=== PATIENT | female | born 1950 | race Two or more races ===

== ENCOUNTER 2016-05-26 21:00 | Inpatient (IN) | payer OTHER ==
[~2016-05-26] VITALS: Ht 172.7 cm; Wt 48.6 kg
[2016-05-26] MEDS ORDERED: IV NS 0.9% 500 ML IV ONE (21:19)
[2016-05-26] MEDS ORDERED: IV SET PRIMARY PUMP SET 1 EA INFUS.SET MC ONE (21:19)
[2016-05-26] MEDS ORDERED: ONDANSETRON HCL/PF 4 MG/2 ML VIAL ONE (21:19)
[2016-05-26] MEDS ORDERED: IV NS 0.9% 1,000 ML ONE (21:19)
[2016-05-26] MEDS ORDERED: PANTOPRAZOLE 40 MG VIAL ONE (21:19)
[2016-05-26] MEDS ORDERED: IV SET PRIMARY 1 EA INFUS.SET MC ONE (21:19)
[2016-05-26] MEDS ORDERED: ONDANSETRON HCL/PF 4 MG/2 ML VIAL IVP ONE (21:30)
[2016-05-26] MEDS ORDERED: PANTOPRAZOLE 80 MG in IV NS 0.9% 500 ML IV ONE (21:30)
[2016-05-26] MEDS ORDERED: IV NS 0.9% 1,000 ML BAG IV ONE (21:30)
[2016-05-26] MEDS ORDERED: PANTOPRAZOLE 80 MG in IV NS 0.9% 500 ML IV PRN (21:30)
[2016-05-26 21:39] LABS: BASOPHILS % (AUTO) 0.1 % (0.0-2.0); DIFF TOTAL % 100 %; EOSINOPHILS % (AUTO) 0.1 % (0.0-6.0); HEMATOCRIT 24 % (33-45); HEMOGLOBIN 7.5 g/dL (11.5-14.8); LYMPHOCYTES # (AUTO) 0.3 /CMM (0.8-4.8); MEAN CORPUSCULAR HEMOGLOBIN 20 PG (26.0-33.0); MEAN CORPUSCULAR HGB CONC 31 g/dl (31.0-36.0); MEAN CORPUSCULAR VOLUME 66 fL (82-100); MONOCYTES % (AUTO) 0.3 % (2.0-12.0); NEUTROPHILS # (AUTO) 9.8 /CMM (1.8-8.9); NEUTROPHILS % (AUTO) 96.5 % (43.0-81.0); PLATELET COUNT (AUTO) 654 /CMM (150-450); RED BLOOD CELL COUNT(AUTO) 3.67 MIL/uL (4.0-5.2); WHITE BLOOD COUNT (AUTO) 10.1 K/uL (4.3-11.0)
[2016-05-26 21:47] LABS: CALCIUM, SERUM 8.7 mg/dL (8.5-10.1); CREATININE 0.7 mg/dL (0.6-1.3); POTASSIUM 4.7 mmol/L (3.5-5.1)
[2016-05-26 21:50] LABS: INR 1.22 (0.87-1.13); PROTHROMBIN TIME 12.8 SECS (9.5-12.7)
[2016-05-26 21:53] LABS: ALBUMIN 2.8 g/dL (3.4-5.0); BILIRUBIN,DIRECT 0.1 mg/dL (0.0-0.2); BILIRUBIN,TOTAL 0.5 mg/dL (0.2-1.0); INDIRECT BILIRUBIN 0.4 mg/dL (0.0-1.1); TOTAL PROTEIN, SERUM 8.6 g/dL (6.4-8.2)
[2016-05-26] MEDS ORDERED: IV NS 0.9% 250 ML IV ONE (23:04)
[2016-05-26] MEDS ORDERED: BLOOD IV SET 1 EA INFUS.SET MC ONE (23:04)
[2016-05-26 23:43] VITALS: BP 148/86
[2016-05-27] VITALS (14 sets, daily range): BP systolic 134–157; BP diastolic 68–88
[2016-05-27] MEDS ORDERED: ACETAMINOPHEN 650 MG/20.3 ML UDC PO PRN
[2016-05-27] MEDS ORDERED: IV D5/ 0.9% NACL 1,000 ML IV ONE (00:03)
[2016-05-27] MEDS ORDERED: IV SET PRIMARY PUMP SET 1 EA INFUS.SET MC ONE (00:26)
[2016-05-27] MEDS: IV D5/ 0.9% NACL 1,000 ML IV PRN ×2 (00:26→20:31)
[2016-05-27] MEDS ORDERED: ONDANSETRON HCL/PF 4 MG/2 ML VIAL IV PRN ×2 (00:30)
[2016-05-27 07:27] LABS: HEMATOCRIT 27 % (33-45); HEMOGLOBIN 8.6 g/dL (11.5-14.8); MEAN CORPUSCULAR HEMOGLOBIN 23 PG (26.0-33.0); MEAN CORPUSCULAR HGB CONC 32 g/dl (31.0-36.0); MEAN CORPUSCULAR VOLUME 71 fL (82-100); PLATELET COUNT (AUTO) 590 /CMM (150-450); RED BLOOD CELL COUNT(AUTO) 3.79 MIL/uL (4.0-5.2); WHITE BLOOD COUNT (AUTO) 7.7 K/uL (4.3-11.0)
[2016-05-27] MEDS ORDERED: NAPR220C15 PO (08:11)
[2016-05-27] MEDS: PANTOPRAZOLE 40 MG VIAL IV SCH ×2 (09:00→17:31)
[2016-05-27] MEDS ORDERED: SUCCINYLCHOLINE CHLORIDE 20 MG/ML VIAL ONE (09:17)
[2016-05-27 09:53] LABS: ANION GAP 14 (5-14); CALCIUM, SERUM 8.4 mg/dL (8.5-10.1); CARBON DIOXIDE 24 mmol/L (21-32); CHLORIDE 110 mmol/L (98-107); CREATININE 0.5 mg/dL (0.6-1.3); GFR 123 mL/min (>60); GLUCOSE 99 mg/dL (74-106); POTASSIUM 4.2 mmol/L (3.5-5.1); SODIUM SERUM 144 mmol/L (136-145); UREA NITROGEN, BLOOD 29 mg/dL (7-18)
[2016-05-27 09:54] LABS: ALANINE AMINOTRANSFERASE 10 U/L (12-78); ALBUMIN 2.3 g/dL (3.4-5.0); ASPARTATE AMINOTRANSFERASE 16 U/L (15-37); PHOSPHORUS 3.2 mg/dL (2.5-4.9)
[2016-05-27 10:43] LABS: IRON, SERUM 83 ug/dl (50-175); PERCENT SATURATION 30 % (14-33); TOTAL IRON BINDING CAPACITY 281 ug/dl (250-450)
[2016-05-27 10:45] LABS: BILIRUBIN,TOTAL 0.6 mg/dL (0.2-1.0); TOTAL PROTEIN, SERUM 7.4 g/dL (6.4-8.2)
[2016-05-27 10:47] LABS: TROPONIN I < 0.017 ng/mL (0.00-0.056)
[2016-05-27 11:03] LABS: ANISOCYTOSIS 3+; HYPOCHROMASIA 2+; LYMPHOCYTES % (MANUAL) 11 % (16-48); PLATELET ESTIMATE INCREASED
[2016-05-27 11:16] LABS: CHOLESTEROL 101 mg/dL (<200); HDL CHOLESTEROL 39 mg/dL (40-60); LDL 57 mg/dL (0-99); THYROID STIMULATING HORMONE 0.803 uIU/mL (0.358-3.74); TRIGLYCERIDES 71 mg/dL (30-150)
[2016-05-27] MEDS: SUCRALFATE 1 G/10 ML UDC PO SCH ×3 (12:44→21:45)
[2016-05-28 04:00] VITALS: BP 137/71
[2016-05-28 08:00] VITALS: BP_SYST 139; BP_SYST 191; BP_DIAS 58; BP_DIAS 73
[2016-05-28] MEDS: SUCRALFATE 1 G/10 ML UDC PO SCH ×4 (09:00→22:36)
[2016-05-28] MEDS: IV D5/ 0.9% NACL 1,000 ML IV PRN ×2 (09:48→22:38)
[2016-05-28] MEDS: PANTOPRAZOLE 40 MG VIAL IV SCH ×2 (09:48→17:36)
[2016-05-28 10:50] LABS: DIFF TOTAL % 100 %; EOSINOPHILS # (AUTO) 0.2 /CMM (0.0-0.7); HEMATOCRIT 24 % (33-45); HEMOGLOBIN 7.7 g/dL (11.5-14.8); LYMPHOCYTES # (AUTO) 0.9 /CMM (0.8-4.8); LYMPHOCYTES % (AUTO) 14.7 % (20.0-44.0); MEAN CORPUSCULAR HEMOGLOBIN 22 PG (26.0-33.0); MEAN CORPUSCULAR HGB CONC 31 g/dl (31.0-36.0); MEAN CORPUSCULAR VOLUME 71 fL (82-100); MONOCYTES # (AUTO) 0.3 /CMM (0.1-1.30); MONOCYTES % (AUTO) 4.8 % (2.0-12.0); NEUTROPHILS % (AUTO) 77.5 % (43.0-81.0); PLATELET COUNT (AUTO) 519 /CMM (150-450); RED BLOOD CELL COUNT(AUTO) 3.42 MIL/uL (4.0-5.2); WHITE BLOOD COUNT (AUTO) 6.4 K/uL (4.3-11.0)
[2016-05-28 11:52] LABS: BAND % (MANUAL) 1 % (0.0-5.0); EOSINOPHILS % (MANUAL) 4 % (0-4); HYPOCHROMASIA 2+; LYMPHOCYTES % (MANUAL) 17 % (16-48); PLATELET ESTIMATE INCREASED
[2016-05-28 11:53] LABS: ANISOCYTOSIS 2+; MICROCYTOSIS 2+; SPHEROCYTES 1+
[2016-05-28 13:02] VITALS: BP 139/73
[2016-05-28 20:00] VITALS: BP_SYST 153; BP_SYST 169; BP_DIAS 68; BP_DIAS 71
[2016-05-28 22:00] VITALS: BP 142/73
[2016-05-29 04:00] VITALS: BP 156/79
[2016-05-29 06:00] VITALS: BP 146/73
[2016-05-29 08:00] VITALS: BP 157/83
[2016-05-29] MEDS: SUCRALFATE 1 G/10 ML UDC PO SCH ×2 (09:11→13:35)
[2016-05-29] MEDS: PANTOPRAZOLE 40 MG VIAL IV SCH (09:11)
[2016-05-29] MEDS ORDERED: PANT40TA2 PO (10:28)
[2016-05-29] MEDS ORDERED: SUCR1TAB26 PO (10:29)
[2016-05-29 21:49] LABS: HIV-1 p24 ANTIGEN NON REACTIVE (NONREACTIVE); HIV-1/2 ANTIBODY NON REACTIVE (NONREACTIVE)
[2016-05-30 11:17] LABS: HEPATITIS C VIRUS AB <0.1 s/co ratio (0.0-0.9)
== END 2016-05-29 16:23 | disposition home or self-care (01) | DRG 368 ==
LOC: ER 21:02 → TELE1 22:15 → MEDSG1 05-27 10:24
PROVIDERS: ADMIT Nurse Practitioner Acute Care; ATTEND Nurse Practitioner Acute Care
PROC: 30233N1 Transfusion of Nonautologous Red Blood Cells into Peripheral Vein, Percutaneous Approach (ICD-10-PCS; principal; 2016-05-26)
PROC: 0W3P8ZZ Control Bleeding in Gastrointestinal Tract, Via Natural or Artificial Opening Endoscopic (ICD-10-PCS; 2016-05-27)
PROC: 0DC58ZZ Extirpation of Matter from Esophagus, Via Natural or Artificial Opening Endoscopic (ICD-10-PCS; 2016-05-27)
DX: K22.6 Gastro-esophageal laceration-hemorrhage syndrome (principal); E43 Unspecified severe protein-calorie malnutrition; N17.0 Acute kidney failure with tubular necrosis; D62 Acute posthemorrhagic anemia; Z68.1 Body mass index [BMI] 19.9 or less, adult; D47.3 Essential (hemorrhagic) thrombocythemia; M06.9 Rheumatoid arthritis, unspecified; Z90.2 Acquired absence of lung [part of]; M62.50 Muscle wasting and atrophy, not elsewhere classified, unspecified site; E88.09 Other disorders of plasma-protein metabolism, not elsewhere classified; E86.0 Dehydration; T39.395A Adverse effect of other nonsteroidal anti-inflammatory drugs [NSAID], initial encounter; D50.0 Iron deficiency anemia secondary to blood loss (chronic)
CPT/HCPCS: 36415; 71010-TC; 80048-TC; 80053-TC; 80061-TC; 80076-TC; 82728-TC; 83540-TC; 83690-TC; 83735-TC; 84100-TC; 84443-TC; 84484-TC; 85025-TC; 85730-TC; 86706; 86803; 86850-TC; 86921-TC; 87081-TC; A4606; C9113; J0330; J2405; J7030; J7040; J7042; J7050; P9016-BL; Z7610

== ENCOUNTER 2019-03-29 07:39 | Inpatient (IN) | payer MEDICARE, MEDICAID ==
[~2019-03-29] VITALS: Ht 162.6 cm; Wt 46.3 kg
[~2019-03-29 07:39] MED LIST: PANT40TA2 PO; SUCR1TAB31 PO
[2019-03-29] MEDS ORDERED: IV NS 0.9% 1,000 ML BAG IV ONE ×2 (08:00→09:00)
[2019-03-29] MEDS ORDERED: ASPIRIN 300 MG/SUPP.RECT RC ONE ×2 (08:00→08:36)
--- NOTE | 2019-03-29 08:14 | NUR ---
Pt came in BIB EMS from facility, c/c fever. Pt on trach on 10L/min at 98% non verbal, noted bilateral extremities contracted, lower extremities no movement, repositioned pt, rectal temp is 101.6, lesion to upper back, lesion to coccyx noted dressing. placed on monitor EKG. awaiting orders.
[2019-03-29 08:15] LABS: BASOPHILS # (AUTO) 0.1 /CMM (0.0-0.2); MEAN CORPUSCULAR VOLUME 94 fL (82-100); MONOCYTES # (AUTO) 0.6 /CMM (0.1-1.30)
[2019-03-29 08:18] LABS: BASOPHILS % (AUTO) 0.3 % (0.0-2.0); HEMATOCRIT 32 % (33-45); HEMOGLOBIN 10.2 g/dL (11.5-14.8); LYMPHOCYTES # (AUTO) 0.3 /CMM (0.8-4.8); LYMPHOCYTES % (AUTO) 1.6 % (20.0-44.0); MEAN CORPUSCULAR HGB CONC 32 g/dl (31.0-36.0); MONOCYTES % (AUTO) 3.2 % (2.0-12.0); NEUTROPHILS # (AUTO) 17.3 /CMM (1.8-8.9); NEUTROPHILS % (AUTO) 94.9 % (43.0-81.0); PLATELET COUNT (AUTO) 334 /CMM (150-450); RED BLOOD CELL COUNT(AUTO) 3.38 MIL/uL (4.0-5.2); WHITE BLOOD COUNT (AUTO) 18.3 K/uL (4.3-11.0)
[2019-03-29 08:27] LABS: CALCIUM, SERUM 8.9 mg/dL (8.5-10.1); CARBON DIOXIDE 33 mmol/L (21-32); CHLORIDE 101 mmol/L (98-107); GLUCOSE 127 mg/dL (74-106); POTASSIUM 4.6 mmol/L (3.5-5.1); SODIUM SERUM 135 mmol/L (136-145); UREA NITROGEN, BLOOD 21 mg/dL (7-18)
[2019-03-29 08:28] LABS: CREATININE 0.4 mg/dL (0.6-1.3)
[2019-03-29 08:31] LABS: BILIRUBIN,TOTAL 0.2 mg/dL (0.2-1.0)
[2019-03-29 08:32] LABS: ALANINE AMINOTRANSFERASE 41 U/L (12-78); ALBUMIN 1.8 g/dL (3.4-5.0); ALKALINE PHOSPHATASE 169 U/L (46-116); ASPARTATE AMINOTRANSFERASE 29 U/L (15-37); TOTAL PROTEIN, SERUM 7.8 g/dL (6.4-8.2)
--- NOTE | 2019-03-29 08:49 | NUR ---
noted pt came with gtube in place.
--- NOTE | 2019-03-29 08:50 | NUR ---
ENDER CALLED ITS JEM
[2019-03-29] MEDS ORDERED: PIPERACILLIN /TAZOBACTAM 3.375 G VIAL IV ONE (08:51)
[2019-03-29] MEDS ORDERED: LEVOFLOXACIN 750 MG /D5W 150ML 150 ML IV ONE ×2 (08:52→09:00)
--- NOTE | 2019-03-29 08:55 | NUR ---
[facility] BED 115-1
--- NOTE | 2019-03-29 08:56 | NUR ---
Blood culture obtained x 2
[2019-03-29] MEDS ORDERED: PIPERACILLIN /TAZOBACTAM 3.375 G in IV D5W 50 ML IV ONE (09:00)
--- NOTE | 2019-03-29 09:24 | NUR ---
Pt eyes open noted bilateral pupil 3mm equal and brisk, noted pt able to nod, suctioned as needed, side rails up x2, continuing to monitor.
--- NOTE | 2019-03-29 09:52 | NUR ---
REPORT GIVEN GARRY NG FOR ELOY, DEB NG INFORMED
--- NOTE | 2019-03-29 10:03 | NUR ---
Place new grant cath 18 F secured ,noted yellow urine
--- NOTE | 2019-03-29 10:30 | NUR ---
MANAGER MACHINE OPENING NOTES PATIENT RECIVED FROM ER ON GURNEY. PATIENT IS A/O X3 PATIENT IS NON BERBAL. WHEN ORIENTED SHE IS AWARE OF THINGS THAT ARE GOING ON. SHE HAS TROUBLE SEE AND HARD OF HEARING ON BOTH EARS . PATIENT IS SATURATING AT 94 %. PATIENT HAS CRACKLING ON LEFT MIDDLE AND LOWER LOBE. PATIENT HAS G TUBE. IV LINE RFA 20 # / LFOOT 24 # . PATIENT IS LITTER. SACRAL/ BACK/ JALLOH/ BI FOOT WOUNDS. CHANGED DRESSING AND KEPT DRY AND CLEAN . PATIENT REPOSITION PER HOSPITAL PROTOCOL BED LOCK AND LOWEST POSITION. CALL LIGHT WITH IN REACH.
[2019-03-29] MEDS ORDERED: ASPIRIN 300 MG/SUPP.RECT RC PRN (11:00)
[2019-03-29] MEDS ORDERED: INSULIN REGULAR, HUMAN 100 UNIT/ML 3 ML VIAL SQ PRN (11:00)
[2019-03-29] MEDS ORDERED: MAG HYDROX/AL HYDROX/SIMETH 30 ML UDC PO PRN (11:00)
[2019-03-29] MEDS ORDERED: ONDANSETRON HCL/PF 4 MG/2 ML VIAL IVP PRN (11:00)
[2019-03-29] MEDS ORDERED: Z GUARD REMEDY 2 OZ OINT TP PRN (11:00)
[2019-03-29] MEDS ORDERED: MAGNESIUM HYDROXIDE 30 ML UDC PO PRN (11:00)
[2019-03-29] MEDS ORDERED: DEXTROSE 50%-WATER 50 ML DISP.SYRIN IV PRN (11:00)
[2019-03-29] MEDS ORDERED: ZOLPIDEM TARTRATE 5 MG TABLET PO PRN (11:00)
[2019-03-29 12:00] VITALS: BP 100/57
[2019-03-29 12:24] LABS: APPEARANCE,URINE CLOUDY (CLEAR); COLOR,URINE DARK YELLOW (YELLOW)
[2019-03-29 12:25] LABS: BILIRUBIN,URINE NEGATIVE (NEGATIVE); BLOOD, URINE 3+ Ery/uL (NEGATIVE); KETONES,URINE NEGATIVE (NEGATIVE); PH,URINE >9.0 (5.0-8.0); PROTEIN,URINE 1+ mg/dl (NEGATIVE); UGLUCOSE NEGATIVE (NEGATIVE); UROBILINOGEN,URINE 0.2 EU/dL (0.2)
[2019-03-29] MEDS: ALBUTEROL FS 2.5 MG/0.5 ML VIAL.NEB NEB SCH ×3 (12:25→19:57)
[2019-03-29] MEDS: IPRATROPIUM NEB FS 0.5 MG/2.5 ML AMPUL.NEB NEB SCH ×3 (12:25→19:57)
[2019-03-29 12:26] LABS: LEUKOCYTE ESTERASE ,URINE 3+ (NEGATIVE); NITRITE, URINE POSITIVE (NEGATIVE)
[2019-03-29 12:29] LABS: BACTERIA,URINE Many /HPF (None Seen); RBC,URINE 21-50 /HPF (0-2); SQUAMOUS EPITHELIAL CELL,UR Few /HPF (None Seen)
[2019-03-29 12:33] LABS: TRIPLE PHOSPHATE CRYSTAL,UR Moderate /HPF (None Seen)
[2019-03-29] MEDS: BLOOD SUGAR DIAGNOSTIC 1 EACH STRIP IN SCH ×3 (13:01→22:01)
[2019-03-29] MEDS: ENOXAPARIN SODIUM 40 MG/0.4 ML DISP.SYRIN SQ SCH (13:04)
[2019-03-29] MEDS: IV 1/2NS 1000 ML 1,000 ML IV PRN (13:52)
[2019-03-29] MEDS ORDERED: FEE PK DOSING 1 MIN EA MC ONE (14:16)
[2019-03-29 16:00] VITALS: BP 137/69
[2019-03-29] MEDS: PIPERACILLIN /TAZOBACTAM 4.5 G in IV D5W 50 ML IV SCH ×2 (16:54→20:58)
[2019-03-29] MEDS: VANCOMYCIN 0.75 GM in IV D5W 250 ML IV SCH (16:54)
[2019-03-29] MEDS ORDERED: OSMOLITE 1.2 CAL 1,000 ML LIQUID GT PRN (18:00)
--- NOTE | 2019-03-29 19:00 | NUR ---
DISTRICT SUPERINTENDENT NOTES WILL ENSORDSED TO PM SHIFT. PATIENT IS ALERT AND ORIENTED X4 . SHE IS NON VERBAL AND NODING IN RESPONSE TO. PATIENT SHOWS NO SIGNS OF RESPIRATORY DISTRESS . NO SOB . NO PAIN. BED LOCKED AND LOWEST POSITION , SAFETY MAINTAINED. CALL LIGHT WITH IN REACH.
--- NOTE | 2019-03-29 19:32 | NUR ---
DIRECTOR OF CONSTRUCTION OPENING NOTES RECEIVED PATIENT IN BED, AWAKE, ALERT AND ORIENTED X 2-3. ABLE TO NOD AND SHAKE HEAD. ON T- PIECE 8L COOL AEROSOL, SATURATING 98% AT THE MOMENT. MODERATE THICK KU SECRETIONS NOTED. LUNG SOUNDS CRACKLING ON LEFT MIDDLE AND LOWER LOBE. GTUBE FLUSHING AND PATENT, WILL INITIATE GTUBE FEEDING. IV SITES RFA 20G, LFA 20G, AND LFOOT 24G, ALL SITES FLUSHING AND PATENT, IVF RUNNING ORDERED. NO INFILTRATION NOTED. BERGER CATH NOTED OFF THE FLOOR, INTACT, AND DRAINING WELL. SAFETY MEASURES IN PLACE; CL WITHIN REACH, HOB ELEVATED 45 DEG., SR UP X2, BED LOCKED AND IN LOW POSITION. WILL CONT TO MONITOR PT CLOSELY.
[2019-03-29 20:00] VITALS: BP 127/66
[2019-03-30] VITALS (7 sets, daily range): BP systolic 104–137; BP diastolic 54–73
[2019-03-30] MEDS: IPRATROPIUM NEB FS 0.5 MG/2.5 ML AMPUL.NEB NEB SCH ×7 (00:03→22:44)
--- NOTE | 2019-03-30 00:30 | NUR ---
REPORT GIVEN TO HERNANDEZ JOHN FOR ELOY.
--- NOTE | 2019-03-30 00:40 | NUR ---
TELE/RN notes Received Patient from Agata at this time, In no acute distress breathing even and unlabored, on T-piece with cool aerosol, O2 8LPM, saturation 98%. Patient A/O X2-3, respond by nodding, Sinus Tachy on monitor, G-tube in place, patent, connected to feeding as ordered, HOB elevated to 45 degree. Safety maintained, bed at the lowest locked position, Call light within reach, WIll continue to monitor as per plan of care.
[2019-03-30] MEDS: MORPHINE SULFATE INJ 2 MG/ML DISP.SYRIN IV PRN (01:04)
[2019-03-30] MEDS: PIPERACILLIN /TAZOBACTAM 4.5 G in IV D5W 50 ML IV SCH ×4 (04:38→21:43)
--- NOTE | 2019-03-30 07:00 | NUR ---
RN NOTE PATIENT NONVERBAL, CATH DRAIINING WITH SEDIENTS NOTED. MULTIPLE IV ATB FOR PATIENT. IV PATENT AND INTACT. R IV REMOVED. NO BM NO RESIDUAL WITH GTUBE SUGARS WNL
[2019-03-30 07:08] LABS: BASOPHILS % (AUTO) 0.1 % (0.0-2.0); EOSINOPHILS % (AUTO) 0.4 % (0.0-6.0); HEMATOCRIT 27 % (33-45); HEMOGLOBIN 8.9 g/dL (11.5-14.8); LYMPHOCYTES # (AUTO) 0.4 /CMM (0.8-4.8); LYMPHOCYTES % (AUTO) 4.9 % (20.0-44.0); MEAN CORPUSCULAR HGB CONC 33 g/dl (31.0-36.0); MEAN CORPUSCULAR VOLUME 94 fL (82-100); MONOCYTES # (AUTO) 0.5 /CMM (0.1-1.30); NEUTROPHILS # (AUTO) 6.9 /CMM (1.8-8.9); NEUTROPHILS % (AUTO) 87.6 % (43.0-81.0); PLATELET COUNT (AUTO) 306 /CMM (150-450); RED BLOOD CELL COUNT(AUTO) 2.87 MIL/uL (4.0-5.2); WHITE BLOOD COUNT (AUTO) 7.8 K/uL (4.3-11.0)
--- NOTE | 2019-03-30 07:14 | NUR ---
TELE/RN notes patient remained in bed, resting comfortably at this time, In no acute distress, breathing even and unlabored, on T-piece with cool aerosol, O2 8LPM, saturation 98%. A/O to her base line, denies any pain or discomfort at this time, Sinus Tachy on monitor, G-tube in place, patent, connected to feeding as ordered, no residual at this time, HOB elevated to 45 degree. Safety maintained, bed at the lowest locked position, Call light within reach, Will endorse to AM shift nurse for ELOY.
[2019-03-30] MEDS: PANTOPRAZOLE 40 MG TABLET.DR PO SCH (07:24)
[2019-03-30] MEDS: BLOOD SUGAR DIAGNOSTIC 1 EACH STRIP IN SCH ×4 (07:31→21:48)
[2019-03-30 07:39] LABS: THYROID STIMULATING HORMONE 1.765 uIU/mL (0.358-3.74)
[2019-03-30 07:42] LABS: ALBUMIN 1.5 g/dL (3.4-5.0); BILIRUBIN,TOTAL 0.2 mg/dL (0.2-1.0); CALCIUM, SERUM 8.6 mg/dL (8.5-10.1); CREATININE 0.4 mg/dL (0.6-1.3); MAGNESIUM 1.8 mg/dL (1.8-2.4); PHOSPHORUS 3.3 mg/dL (2.5-4.9); POTASSIUM 3.7 mmol/L (3.5-5.1); TOTAL PROTEIN, SERUM 7.2 g/dL (6.4-8.2)
[2019-03-30] MEDS: ALBUTEROL FS 2.5 MG/0.5 ML VIAL.NEB NEB SCH ×4 (07:47→19:37)
[2019-03-30] MEDS: VANCOMYCIN 0.75 GM in IV D5W 250 ML IV SCH (08:48)
[2019-03-30] MEDS ORDERED: OSMOLITE 1.2 CAL 1,000 ML LIQUID GT PRN (11:00)
[2019-03-30] MEDS: ENOXAPARIN SODIUM 40 MG/0.4 ML DISP.SYRIN SQ SCH (14:03)
[2019-03-30] MEDS: HYDROGEL DRESSING 90 GM TUBE TP SCH (14:30)
[2019-03-30] MEDS: ALBUMIN 25% 25 GM in PREMIX 1 EA IV SCH ×2 (17:07→23:31)
[2019-03-30] MEDS: IV 1/2NS 1000 ML 1,000 ML IV PRN (18:28)
--- NOTE | 2019-03-30 19:05 | NUR ---
RN CLOSING NOTES LAB CALLED AND INFORMED RN + BLOOD CULTURE DAY RN TO ENDRORSE TO TAXICAB DISPATCHER. PATIENT CURRENTLY ON MU;TIPLE ATB. INFECTIOUS DISEASE SAW PATENT NEW ODERS CARRIED OUT. ALBUMIN HUNG BY DAYSHIFT PER MD ORDER. PATIENT NONVERBAL, CATH DRAIINING WITH SEDIENTS NOTED. MULTIPLE IV ATB FOR PATIENT. IV PATENT AND INTACT. RIGHT IV REMOVED. NO BM NO RESIDUAL WITH GTUBE SUGARS WNL WOUND DR SAW PATIENT CHANGED DRESSINGS W RNS.
--- NOTE | 2019-03-30 20:03 | NUR ---
RN NOTE RECEIVED PT IN BED WITH HEAD OF BED ELEVATED. PT NON VERBAL. NO SIGNS OF DISCOMFORT OR DISTRESS. PT WITH TRACH MID LINE AND IN PLACE. ON COOL AEROSOL. GT PATENT AND IN PLACE. NO RESIDUAL NOTED. WITH BERGER CATHETER IN PLACE WITH YELLOW URINE WITH SEDIMENTS NOTED. IVF RUNNING. CALL LIGHT WITHIN REACH. BED IN LOW POSITION. WILL MONITOR.
[2019-03-31] VITALS: BP 137/71
[2019-03-31] MEDS: IPRATROPIUM NEB FS 0.5 MG/2.5 ML AMPUL.NEB NEB SCH ×6 (03:07→23:51)
[2019-03-31] MEDS: VANCOMYCIN 0.75 GM in IV D5W 250 ML IV SCH ×3 (03:41→22:01)
[2019-03-31] MEDS: PIPERACILLIN /TAZOBACTAM 4.5 G in IV D5W 50 ML IV SCH ×4 (03:42→20:17)
[2019-03-31 04:00] VITALS: BP 113/55
[2019-03-31] MEDS: OSMOLITE 1.2 CAL 1,000 ML LIQUID GT SCH ×2 (04:10→22:45)
[2019-03-31] MEDS: ALBUMIN 25% 25 GM in PREMIX 1 EA IV SCH (06:23)
--- NOTE | 2019-03-31 06:54 | NUR ---
PATIENT RECEIVED ON 35% AEROSOL T-TUBE, TOLERATING WITH NO DISTRESS/SOB NOTED. SUCTIONED WITH LAVAGE FOR MINIMAL, THIN, YELLOW SECRETIONS. GIVEN IN-LINE TREATMENTS WITH NO ADVERSE REACTIONS. AMBU BAG AT BEDSIDE. PULSE OXIMETER ALARM AUDIBLE AND VISIBLE. TRACH CARE DONE. CHANGED INNER CANNULA PORTEX 7. Addendum: 03/31/19 at 0655 by FABIENNE BORJAS RT Amended: Links added.
[2019-03-31 07:28] LABS: BASOPHILS % (AUTO) 0.2 % (0.0-2.0); EOSINOPHILS % (AUTO) 1.8 % (0.0-6.0); HEMATOCRIT 24 % (33-45); HEMOGLOBIN 7.9 g/dL (11.5-14.8); LYMPHOCYTES # (AUTO) 0.4 /CMM (0.8-4.8); LYMPHOCYTES % (AUTO) 6.1 % (20.0-44.0); MEAN CORPUSCULAR HGB CONC 33 g/dl (31.0-36.0); MEAN CORPUSCULAR VOLUME 93 fL (82-100); MONOCYTES # (AUTO) 0.4 /CMM (0.1-1.30); MONOCYTES % (AUTO) 5.7 % (2.0-12.0); NEUTROPHILS # (AUTO) 5.6 /CMM (1.8-8.9); NEUTROPHILS % (AUTO) 86.2 % (43.0-81.0); PLATELET COUNT (AUTO) 261 /CMM (150-450); RED BLOOD CELL COUNT(AUTO) 2.56 MIL/uL (4.0-5.2); WHITE BLOOD COUNT (AUTO) 6.5 K/uL (4.3-11.0)
[2019-03-31 07:41] LABS: CALCIUM, SERUM 8.5 mg/dL (8.5-10.1); CREATININE 0.3 mg/dL (0.6-1.3); POTASSIUM 3.1 mmol/L (3.5-5.1)
[2019-03-31 08:00] VITALS: BP 148/69
[2019-03-31] MEDS: ALBUTEROL FS 2.5 MG/0.5 ML VIAL.NEB NEB SCH ×4 (08:42→20:11)
--- NOTE | 2019-03-31 08:44 | NUR ---
WOUND CARE CONSULT: PT FOLLOWED BY PODIATRY AND PLASTIC SURGERY TEAMS FOR WOUND CARE. DEFER TO SURGICAL TEAMS FOR WOUND TREATMENT PLAN. FIRST STEP LOW AIRLOSS MATTRESS ON ORDER. RECOMMENDATIONS MADE FOR SKIN PROTECTION AND DISCUSSED WITH NURSING STAFF. WILL SEE PRN.
[2019-03-31] MEDS: PANTOPRAZOLE 40 MG TABLET.DR PO SCH (09:01)
[2019-03-31] MEDS: BLOOD SUGAR DIAGNOSTIC 1 EACH STRIP IN SCH ×4 (09:09→22:03)
[2019-03-31] MEDS: HYDROGEL DRESSING 90 GM TUBE TP SCH (09:11)
[2019-03-31] MEDS: POTASSIUM CL. PREMIX PERIPHER. 50 ML IV SCH ×4 (09:12→13:05)
[2019-03-31 12:00] VITALS: BP 138/71
[2019-03-31] MEDS: ENOXAPARIN SODIUM 40 MG/0.4 ML DISP.SYRIN SQ SCH (13:10)
[2019-03-31] MEDS: MORPHINE SULFATE INJ 2 MG/ML DISP.SYRIN IV PRN (14:29)
[2019-03-31] MEDS: IV 1/2NS 1000 ML 1,000 ML IV PRN (14:30)
[2019-03-31 16:00] VITALS: BP_SYST 135; BP_DIAS 73; BP_DIAS 75
--- NOTE | 2019-03-31 18:55 | NUR ---
PATIENT IS A/O X1-2 PATIENT IS NON VERBAL , HARD OF HEARING. T-PIECE ON 8L SATURATING 97-98%. ON MONITOR ST 101-110. IV LINE RFA 20 # / LFOOT 24 #. SPUTUM COLLECTED AND SENT TO LAB. PATIENT TOLERATING G-TUBE FEEDING WELL. KEPT DRY AND CLEAN , WOUND CARE DIRECTED. PATIENT REPOSITION PER HOSPITAL PROTOCOL . BED LOCK AND LOWEST POSITION. CALL LIGHT WITH IN REACH. ALL NEEDS ATTENDED. WILL ENDORSE TO NEXT SHIFT.
--- NOTE | 2019-03-31 19:45 | NUR ---
RN OPENING NOTES: PATIENT ASLEEP BUT EASILY AROUSABLE WITH EYES OPEN. ON T-PIECE AT 8LPM SATTING 97%. BREATHING IS EVEN AND UNLABORED. NO S/S OF PAIN. NO FACIAL GRIMACING. ON HEALTH CARE LIAISON SHOWING SR AT THIS TIME. HOB ELEVATED. ON GTF, TOLERATING FAIRLY, 5 ML RESIDUAL. BERGER CATH INTACT AND DRAINING CLEAR YELLOW URINE. KEPT CLEAN AND DRY. ALL NEEDS ATTENDED. CALL LIGHT PLACED WITHIN REACH. WILL CONT. TO MONITOR.
[2019-03-31 20:00] VITALS: BP 134/70
--- NOTE | 2019-03-31 20:15 | NUR ---
RN NOTE: VANCO TROUGH 7. WILL ADMINISTER VANCOMYCIN DOSE AT 2100.
[2019-04-01] VITALS: BP 159/72
--- NOTE | 2019-04-01 01:04 | NUR ---
RN NOTE: ENDORSED TO ERLIN NG FOR ELOY. PATIENT IN STABLE CONDITION.
--- NOTE | 2019-04-01 01:05 | NUR ---
RN NOTES: RECEIEVED ENDORSEMENT FROM CROW/RN, PATIENT IS LYING COMFORTABLY, ON SR-90, TELE MONITOR, SPO2-99%, ON T-PIECE AT 8L/MIN, ON 1/2NS AT 50 ML/HR VIA RIGHT FOOT G#22, PATENT, LATEST V/S T-97.5 IA-90 RR-26 BP-159/72. BERGER CATH DRAINING INTO YELLOWISH COLORED YURINE AT 100 CC LEVEL, PEG SITE INTACT, FEEDING ONGOING, KEPT ON CLOSE WATCH, BED LOW AND LOCKED, CALL LIGHT WITHIN EASY REACH, CHECK AT FREQUENT INTERVAL.
[2019-04-01] MEDS: PIPERACILLIN /TAZOBACTAM 4.5 G in IV D5W 50 ML IV SCH ×4 (02:11→21:34)
[2019-04-01] MEDS: IPRATROPIUM NEB FS 0.5 MG/2.5 ML AMPUL.NEB NEB SCH ×6 (03:11→23:47)
[2019-04-01 04:00] VITALS: BP 155/75
--- NOTE | 2019-04-01 05:30 | NUR ---
RN NOTES: -TURNING AND REPOSITIONING DONE, SUCTION PRN. -0500 BED BATH RENDERED, DRESSING CHANGE, IN BETWEEN SPO2 IS GOING DOWN WHILE DOING MORNING CARE,RT NOTIFIED, SUCTIONED NEEDED LATEST SPO2-97% HR-91, KEPT COMFORTABLE IN BED.
--- NOTE | 2019-04-01 06:53 | NUR ---
RN NOTES: ASLEEP IN BETWEEN, REPOSITION, NEEDS ATTENDED, BED LOW AND LOCKED, FALL,SAFETY AND ASPIRATION PRECAUTION OBSERVED, CALL LIGHT WITHIN EASY REACH, ENDORSED FOR CONTINUITY OF CARE.
[2019-04-01 07:20] LABS: BASOPHILS % (AUTO) 0.2 % (0.0-2.0); EOSINOPHILS % (AUTO) 2.7 % (0.0-6.0); HEMATOCRIT 25 % (33-45); HEMOGLOBIN 8.1 g/dL (11.5-14.8); LYMPHOCYTES # (AUTO) 0.5 /CMM (0.8-4.8); LYMPHOCYTES % (AUTO) 7.8 % (20.0-44.0); MEAN CORPUSCULAR HGB CONC 33 g/dl (31.0-36.0); MEAN CORPUSCULAR VOLUME 94 fL (82-100); MONOCYTES # (AUTO) 0.3 /CMM (0.1-1.30); MONOCYTES % (AUTO) 5.8 % (2.0-12.0); NEUTROPHILS # (AUTO) 4.8 /CMM (1.8-8.9); NEUTROPHILS % (AUTO) 83.5 % (43.0-81.0); PLATELET COUNT (AUTO) 254 /CMM (150-450); RED BLOOD CELL COUNT(AUTO) 2.65 MIL/uL (4.0-5.2); WHITE BLOOD COUNT (AUTO) 5.8 K/uL (4.3-11.0)
[2019-04-01 07:30] LABS: CALCIUM, SERUM 8.2 mg/dL (8.5-10.1); CREATININE 0.3 mg/dL (0.6-1.3); POTASSIUM 4.1 mmol/L (3.5-5.1)
--- NOTE | 2019-04-01 07:30 | NUR ---
ASSEMBLER PRODUCTION LINE AM NOTES: PATIENT IN BED, ASLEEP RESPONDS EASILY TO NAME AND TOUCH. MOUTHS WORD.ON T-PIECE AT 8LPM SATTING 98%. BREATHING IS EVEN AND UNLABORED. SINUS RHYTHM ON TELE MONITOR. NO S/S OF PAIN. NO FACIAL GRIMACING. BERGER CATH IN PLACE, DRAINING CLEAR YELLOW URINE, ADEQUATE AMOUNT. HOB ELEVATED. ON GTF, TOLERATING FAIRLY, 5 ML RESIDUAL. SEE NURSING NOTES FOR SKIN ISSUES. WILL DO PRESCRIBED WOUND TREATMENT IN A WHILE. WILL TURN AND REPOSITION Q 2 HOURS. HEEL PROTECTORS TO BOTH FEET IN PLACE. KEPT CLEAN AND DRY. ALL NEEDS ATTENDED. CALL LIGHT PLACED WITHIN REACH. WILL CONT. TO MONITOR.
[2019-04-01 08:00] VITALS: BP 158/88
--- NOTE | 2019-04-01 08:15 | NUR ---
RN NOTES ACCUCHECK DONE. BS 108 MG/DL. NO INSULIN COVERAGE AT THIS TIME
[2019-04-01] MEDS: PANTOPRAZOLE 40 MG TABLET.DR PO SCH (08:16)
[2019-04-01] MEDS: BLOOD SUGAR DIAGNOSTIC 1 EACH STRIP IN SCH ×4 (08:16→20:58)
[2019-04-01] MEDS: ALBUTEROL FS 2.5 MG/0.5 ML VIAL.NEB NEB SCH ×4 (08:23→19:51)
--- NOTE | 2019-04-01 09:30 | NUR ---
RN NOTES DUE MEDS GIVEN
[2019-04-01] MEDS: PROSOURCE / PROSTAT (PYXIS) 30 ML UDC GT SCH (09:52)
[2019-04-01] MEDS: HYDROGEL DRESSING 90 GM TUBE TP SCH (09:52)
[2019-04-01] MEDS: ENOXAPARIN SODIUM 40 MG/0.4 ML DISP.SYRIN SQ SCH (12:23)
--- NOTE | 2019-04-01 12:30 | NUR ---
RN NOTES ACCUCHECK DONE. BS 118 MG/DL. NO INSULIN COVERAGE AT THIS TIME
[2019-04-01] MEDS: VANCOMYCIN 0.75 GM in IV D5W 250 ML IV SCH ×2 (13:18→23:44)
[2019-04-01 16:00] VITALS: BP 164/92
[2019-04-01] MEDS: OSMOLITE 1.2 CAL 1,000 ML LIQUID GT SCH (17:40)
[2019-04-01] MEDS: IV 1/2NS 1000 ML 1,000 ML IV PRN (17:43)
--- NOTE | 2019-04-01 18:50 | NUR ---
RN CLOSING NOTES: PATIENT IN BED, ASLEEP RESPONDS EASILY TO NAME AND TOUCH. MOUTHS WORD.ON T-PIECE AT 8LPM SATTING 95%. BREATHING IS EVEN AND UNLABORED. NO S/S OF PAIN. NO FACIAL GRIMACING. BERGER CATH IN PLACE, DRAINING CLEAR YELLOW URINE, ADEQUATE AMOUNT. TOTAL 1200 ML OUTPUT. HOB ELEVATED. ON GTF, TOLERATING FAIRLY, 5 ML RESIDUAL. PRESCRIBED WOUND TREATMENT AND PM CARE DONE EARLIER. TURNED AND REPOSITIONED Q 2 HOURS. HEEL PROTECTORS TO BOTH FEET IN PLACE. KEPT CLEAN AND DRY. ALL NEEDS ATTENDED. CALL LIGHT PLACED WITHIN REACH. WILL ENDORSE TO NEXT SHIFT FOR ELOY.
[2019-04-01 20:00] VITALS: BP 164/82
--- NOTE | 2019-04-01 20:59 | NUR ---
blood sugar 116mg/dl
--- NOTE | 2019-04-01 21:34 | NUR ---
RN NOTES IV SITE RT FOOT STARTING TO BE PINKISH RED, FLUSHING OK. INSERTED SINCE ADMISSION. TRIED PIV BUT TO NO AVAIL. PATIENT DIABETIC. ALSO ON VANCOMYCIN AND ZOSYN PLUS IVF. ANGELIQUE Rojas OK TO INSERT MIDLINE. CECY, TELEVISION REPAIR TEACHER MADE AWARE
[2019-04-01 23:30] VITALS: BP 172/97
--- NOTE | 2019-04-01 23:31 | NUR ---
patient is still awake and looks anxious. bp 172/97. will give pain medication Addendum: 04/01/19 at 2352 by IRMA MAGALLANES RN grimacing and restless, even with the ambuin given.morphine 1 mg ivp given to the right upper arm aleyda.
[2019-04-01] MEDS: MORPHINE SULFATE INJ 2 MG/ML DISP.SYRIN IV PRN (23:45)
[2019-04-02] VITALS (7 sets, daily range): BP systolic 130–163; BP diastolic 69–91
--- NOTE | 2019-04-02 02:19 | NUR ---
JUS SLOAN.SUCTIONING OF SECRETIONS DONE NEEDED Addendum: 04/02/19 at 0219 by IRMA MAGALLANES RN Amended: Links added.
[2019-04-02] MEDS: IPRATROPIUM NEB FS 0.5 MG/2.5 ML AMPUL.NEB NEB SCH ×6 (03:17→23:18)
[2019-04-02] MEDS: PIPERACILLIN /TAZOBACTAM 4.5 G in IV D5W 50 ML IV SCH ×4 (03:39→20:47)
[2019-04-02 07:16] LABS: BASOPHILS % (AUTO) 0.4 % (0.0-2.0); HEMATOCRIT 27 % (33-45); HEMOGLOBIN 8.6 g/dL (11.5-14.8); LYMPHOCYTES # (AUTO) 0.5 /CMM (0.8-4.8); LYMPHOCYTES % (AUTO) 9.1 % (20.0-44.0); MEAN CORPUSCULAR HGB CONC 32 g/dl (31.0-36.0); MEAN CORPUSCULAR VOLUME 93 fL (82-100); MONOCYTES # (AUTO) 0.4 /CMM (0.1-1.30); MONOCYTES % (AUTO) 7.7 % (2.0-12.0); NEUTROPHILS # (AUTO) 4.4 /CMM (1.8-8.9); NEUTROPHILS % (AUTO) 79.8 % (43.0-81.0); PLATELET COUNT (AUTO) 259 /CMM (150-450); RED BLOOD CELL COUNT(AUTO) 2.88 MIL/uL (4.0-5.2); WHITE BLOOD COUNT (AUTO) 5.6 K/uL (4.3-11.0)
[2019-04-02 07:24] LABS: CALCIUM, SERUM 8.3 mg/dL (8.5-10.1); CREATININE 0.4 mg/dL (0.6-1.3)
[2019-04-02] MEDS: BLOOD SUGAR DIAGNOSTIC 1 EACH STRIP IN SCH ×4 (07:30→21:48)
--- NOTE | 2019-04-02 07:30 | NUR ---
MS RN AM NOTES: PATIENT IN BED, ASLEEP RESPONDS EASILY TO NAME AND TOUCH. MOUTHS WORD.ON T-PIECE AT 8LPM SATTING 98%. BREATHING IS EVEN AND UNLABORED. NO S/S OF PAIN. NO FACIAL GRIMACING. BERGER CATH IN PLACE, DRAINING CLEAR YELLOW URINE, ADEQUATE AMOUNT. HOB ELEVATED. ON GTF, TOLERATING FAIRLY, 5 ML RESIDUAL. SEE NURSING NOTES FOR SKIN ISSUES. WILL DO PRESCRIBED WOUND TREATMENT IN A WHILE. WILL TURN AND REPOSITION Q 2 HOURS. HEEL PROTECTORS TO BOTH FEET IN PLACE. KEPT CLEAN AND DRY. ALL NEEDS ATTENDED. CALL LIGHT PLACED WITHIN REACH. WILL CONT. TO MONITOR.
--- NOTE | 2019-04-02 07:34 | NUR ---
REPORT GIVEN TO THE DAY SHIFT RN THAT THE PATIENT BERGER CATHETER IS LEAKING,NEEDS TO INFORM THE PHYSICIAN
[2019-04-02] MEDS: ALBUTEROL FS 2.5 MG/0.5 ML VIAL.NEB NEB SCH ×4 (07:54→19:39)
[2019-04-02] MEDS: PANTOPRAZOLE 40 MG TABLET.DR PO SCH (09:06)
[2019-04-02] MEDS: PROSOURCE / PROSTAT (PYXIS) 30 ML UDC GT SCH (09:12)
[2019-04-02] MEDS: HYDROGEL DRESSING 90 GM TUBE TP SCH (09:12)
--- NOTE | 2019-04-02 09:30 | NUR ---
RN NOTES DUE MEDS GIVEN
[2019-04-02] MEDS: VANCOMYCIN 0.75 GM in IV D5W 250 ML IV SCH ×2 (11:57→23:15)
[2019-04-02] MEDS: ENOXAPARIN SODIUM 40 MG/0.4 ML DISP.SYRIN SQ SCH (12:00)
--- NOTE | 2019-04-02 12:12 | NUR ---
RN NOTES ACCUCHECK DONE. BS 110 MG/DL. NO INSULIN COVERAGE AT THIS TIME
[2019-04-02] MEDS: OSMOLITE 1.2 CAL 1,000 ML LIQUID GT SCH (15:04)
[2019-04-02] MEDS: IV 1/2NS 1000 ML 1,000 ML IV PRN (16:41)
--- NOTE | 2019-04-02 16:50 | NUR ---
RN NOTES BS 112 MG/DL. NO INSULIN COVERAGE GIVEN
--- NOTE | 2019-04-02 18:28 | NUR ---
N CLOSING NOTES: PATIENT IN BED, ASLEEP RESPONDS EASILY TO NAME AND TOUCH. MOUTHS WORD.ON T-PIECE AT 8LPM SATTING 95%. BREATHING IS EVEN AND UNLABORED. NO S/S OF PAIN. NO FACIAL GRIMACING. BERGER CATH IN PLACE, DRAINING CLEAR YELLOW URINE, ADEQUATE AMOUNT. TOTAL 1000 ML OUTPUT. HOB ELEVATED. ON GTF, TOLERATING FAIRLY, 5 ML RESIDUAL. PRESCRIBED WOUND TREATMENT AND PM CARE DONE EARLIER. TURNED AND REPOSITIONED Q 2 HOURS. HEEL PROTECTORS TO BOTH FEET IN PLACE. KEPT CLEAN AND DRY. ALL NEEDS ATTENDED. CALL LIGHT PLACED WITHIN REACH. WILL ENDORSE TO NEXT SHIFT FOR ELOY.
[2019-04-02] MEDS: CEFTRIAXONE 1 G in IV D5W 50 ML IV SCH (19:43)
--- NOTE | 2019-04-02 19:45 | NUR ---
MS RN OPENING NOTES RECEIVED PATIENT IN BED, ALERT AND ORIENTED X 1, MOUTH WORDS. BREATHING REGULAR AND UNLABORED ON COOL AEROSOL AT 8L/MIN VIA T-PIECE. RIGHT UPPER ARM MIDLINE INTACT AND PATENT, INFUSING WELL WITH NO BLEEDING OR S/S OF INFECTION NOTED. GTUBE PATENT WITH NO RESIDUAL ASPIRATED. BERGER CATH INTACT DRAINING MODERATE CLEAR YELLOW URINE. NO S/S OF PAIN/DISCOMFORT SEEN. BED LOW AND LOCKED ON SEMI FOWLERS POSITION. CALL LIGHT IN REACH. WILL CONTINUE TO MONITOR.
--- NOTE | 2019-04-02 21:45 | NUR ---
MS RN NOTES BS 108mg/dl, NO INSULIN COVERAGE NEEDED. WILL CONTINUE TO MONITOR.
[2019-04-03] VITALS: BP 147/72
[2019-04-03] MEDS: PIPERACILLIN /TAZOBACTAM 4.5 G in IV D5W 50 ML IV SCH ×2 (03:18→08:31)
[2019-04-03] MEDS: IPRATROPIUM NEB FS 0.5 MG/2.5 ML AMPUL.NEB NEB SCH ×6 (03:20→23:23)
[2019-04-03 04:00] VITALS: BP 131/66
--- NOTE | 2019-04-03 06:35 | NUR ---
MS RN CLOSING NOTES PATIENT IN BED, ALERT AND ORIENTED X 1, MOUTH WORDS. BREATHING UNLABORED ON COOL AEROSOL AT 8L/MIN VIA T-PIECE. RIGHT UPPER ARM MIDLINE INTACT AND INFUSING WELL WITH NO BLEEDING OR S/S OF INFECTION NOTED. GTUBE PATENT WITH NO RESIDUAL ASPIRATED, CURRENT RATE TOLERATING WELL WITH NO EPISODE OF NAUSEA/VOMITING ON THE SHIFT. BERGER CATH INTACT DRAINING CLEAR YELLOW URINE WITH 750CC OUTPUT. NO S/S OF PAIN/DISCOMFORT SEEN. BED LOW AND LOCKED ON SEMI FOWLERS POSITION. CALL LIGHT IN REACH. WILL ENDORSE TO MORNING SHIFT FOR ELOY.
[2019-04-03 06:45] LABS: CALCIUM, SERUM 8.4 mg/dL (8.5-10.1); CREATININE 0.3 mg/dL (0.6-1.3)
--- NOTE | 2019-04-03 07:15 | NUR ---
RN INITIAL NOTE PATIENT IN BED, ASLEEP BUT EASILY AROUSABLE TO TOUCH. PATIENT MOUTHS WORDS. ON TP, ON COOL AEROSOL AT 8L/MIN. HAS A BERGER CATH WITH CLEAR AND YELLOW URINE. ON GTF WITH OSMOLITE AT 50 ML/HR. HAS A RIGHT UA MIDLINE WITH HALF NS RUNNING AT 50 ML/HR. POSSIBLE DC TODAY. BED LOCKED AND IN LOWEST POSITION. CALL LIGHT WITHIN REACH. WILL CONTINUE TO MONITOR CLOSELY
[2019-04-03] MEDS: ALBUTEROL FS 2.5 MG/0.5 ML VIAL.NEB NEB SCH ×4 (07:16→20:07)
[2019-04-03 07:25] LABS: BASOPHILS % (AUTO) 0.3 % (0.0-2.0); EOSINOPHILS % (AUTO) 2.4 % (0.0-6.0); HEMATOCRIT 29 % (33-45); HEMOGLOBIN 9.3 g/dL (11.5-14.8); LYMPHOCYTES # (AUTO) 0.5 /CMM (0.8-4.8); MEAN CORPUSCULAR HGB CONC 33 g/dl (31.0-36.0); MEAN CORPUSCULAR VOLUME 93 fL (82-100); MONOCYTES # (AUTO) 0.4 /CMM (0.1-1.30); MONOCYTES % (AUTO) 5.3 % (2.0-12.0); NEUTROPHILS # (AUTO) 6.1 /CMM (1.8-8.9); PLATELET COUNT (AUTO) 223 /CMM (150-450); RED BLOOD CELL COUNT(AUTO) 3.06 MIL/uL (4.0-5.2); WHITE BLOOD COUNT (AUTO) 7.1 K/uL (4.3-11.0)
[2019-04-03 08:00] VITALS: BP 133/69
[2019-04-03] MEDS: BLOOD SUGAR DIAGNOSTIC 1 EACH STRIP IN SCH ×4 (08:26→22:06)
[2019-04-03] MEDS: PANTOPRAZOLE 40 MG TABLET.DR PO SCH (08:26)
[2019-04-03] MEDS: PROSOURCE / PROSTAT (PYXIS) 30 ML UDC GT SCH (08:26)
[2019-04-03] MEDS: HYDROGEL DRESSING 90 GM TUBE TP SCH (09:29)
[2019-04-03 10:30] LABS: ABG OXYGEN SATURATION 96.5 % (92.0-98.5); ABG PH 7.381 (7.350-7.450); ABG PO2 104.8 mmHg (75.0-100.0); AaDO2 71.5 mmHg; COHb 0.9 % (0.5-1.5); MetHb 0.4 % (0.0-1.5); O2Hb 95.2 % (94.0-97.0); SITE, ABG Right Radial; VENT MODE, BG COOL AEROSOL 35%
--- NOTE | 2019-04-03 11:10 | NUR ---
RN NOTE RT DID AN ABG FOR THIS PATIENT. PCO2 IS ELEVATED, AT 63. PER RT, HE WILL DECREASE FIO2 TO 28%. DR ARGUETA IS AWARE
[2019-04-03 12:00] VITALS: BP 132/69
[2019-04-03] MEDS: VANCOMYCIN 0.75 GM in IV D5W 250 ML IV SCH (12:24)
[2019-04-03] MEDS: OSMOLITE 1.2 CAL 1,000 ML LIQUID GT SCH (12:31)
[2019-04-03] MEDS: ENOXAPARIN SODIUM 40 MG/0.4 ML DISP.SYRIN SQ SCH (12:35)
[2019-04-03 16:00] VITALS: BP 150/75
--- NOTE | 2019-04-03 16:42 | NUR ---
RN NOTE NOTED THAT PATIENT'S RIGHT EYE HAS REDNESS. SHER MADE AWARE. HE SAID HE WILL CHECK IT OUT TOMORROW MORNING
[2019-04-03] MEDS: IV 1/2NS 1000 ML 1,000 ML IV PRN (18:27)
--- NOTE | 2019-04-03 18:48 | NUR ---
RN CLOSING NOTE PATIENT IN BED, AWAKE AND ALERTX1. MOUTHS WORDS. ON TPIECE, 8L ON COOL AEROSOL. HAS BERGER CATH WITH CLEAR AND YELLOW URINE. GTF AT 50 ML/HR. WOUND CARE DONE. REPOSITIONED PER PROTOCOL. HAS A RIGHT UA MIDLINE WITH HALF NS AT 50 ML/HR. INSULIN COVERAGE NOT GIVEN, BS HAS BEEN STABLE THROUGHOUT THE SHIFT. DC ROBERT PER MD AND ID. BED LOCKED AND IN LOWEST POSITION. CALL LIGHT WITHIN REACH. WILL ENDORSE TO NOC SHIFT FOR ELOY
--- NOTE | 2019-04-03 19:30 | NUR ---
MS RN OPENING NOTE RECEIVED PATIENT IN BED WITH NO SIGN OF DISTRESS A/OX2. PATIENT HAS A T-PIECE WITH 8L OF O2 WITH COOL AEROSOL. NO SIGN OF ANY SOB. IV ACCESS ON THE ELENA MIDLING WITH A/2NS RUNNING AT 50CC/HR. GTUBE WAS ASPIRATED WITH NO RESIDUAL AND FLUSHED. GTUBE JEVITY IS RUNNING AT 50ML/HR. BERGER INTACT WITH NO SIGN OF OBSTRUCTION. PATIENT IS BED BOUND WITH REPOSITIONING EVERY 2 HR. ALL SAFETY PRECAUTIONS HAVE BEED PLACED. WILL CONTINUE TO MONITOR PATIENT.
[2019-04-03 20:00] VITALS: BP 161/89
[2019-04-03] MEDS: CEFTRIAXONE 1 G in IV D5W 50 ML IV SCH (21:03)
[2019-04-04] VITALS: BP 161/89
--- NOTE | 2019-04-04 03:30 | NUR ---
MS RN NOTE RECEIVED TRANSFER OF CARE FROM DEVIN NG. PATIENT IS A/OX1. PATIENT IS NONVERBAL, TRIES TO MOUTH WORDS. ON OXYGEN 8L/MIN VIA T-PIECE WITH COOL AEROSOL. BERGER CATHETER IS PRESENT, DRAINING TO GRAVITY, URINE IS YELLOW. GTUBE IS PRESENT TUBE FEEDING RUNNING JEVITY AT 50ML/HR. IV ACCESS IN ELENA MIDLINE RUNNING 1/2NS@50ML/HR. PATIENT IS COMFORTABLE IN BED, NO C/O PAIN AT THIS TIME. BED IS LOW AND LOCKED, HOB HIGH FOWLERS, SIDE RAILS UP X2, BED ALARM ON. CALL LIGHT WITHIN REACH. WILL CONTINUE TO MONITOR.
[2019-04-04 04:00] VITALS: BP 151/77
[2019-04-04] MEDS: IPRATROPIUM NEB FS 0.5 MG/2.5 ML AMPUL.NEB NEB SCH ×6 (04:15→23:40)
--- NOTE | 2019-04-04 07:00 | NUR ---
MS RN CLOSING NOTE NO SIGNIFICANT CHANGE DURING SHIFT. WILL ENDORSE TO NEXT SHIFT.
[2019-04-04] MEDS: ALBUTEROL FS 2.5 MG/0.5 ML VIAL.NEB NEB SCH ×4 (07:22→19:54)
[2019-04-04 07:37] LABS: BASOPHILS % (AUTO) 0.3 % (0.0-2.0); EOSINOPHILS % (AUTO) 2.8 % (0.0-6.0); HEMATOCRIT 26 % (33-45); HEMOGLOBIN 8.6 g/dL (11.5-14.8); LYMPHOCYTES # (AUTO) 0.7 /CMM (0.8-4.8); LYMPHOCYTES % (AUTO) 8.4 % (20.0-44.0); MEAN CORPUSCULAR HGB CONC 33 g/dl (31.0-36.0); MEAN CORPUSCULAR VOLUME 92 fL (82-100); MONOCYTES # (AUTO) 0.4 /CMM (0.1-1.30); MONOCYTES % (AUTO) 5.1 % (2.0-12.0); NEUTROPHILS # (AUTO) 6.5 /CMM (1.8-8.9); NEUTROPHILS % (AUTO) 83.4 % (43.0-81.0); PLATELET COUNT (AUTO) 253 /CMM (150-450); RED BLOOD CELL COUNT(AUTO) 2.82 MIL/uL (4.0-5.2); WHITE BLOOD COUNT (AUTO) 7.8 K/uL (4.3-11.0)
--- NOTE | 2019-04-04 07:44 | NUR ---
RN OPENING NOTES RECEIVED PATIENT RESTING IN BED COMFORTABLY, DOES NOT EXHIBIT S/SX OF DISTRESS OR PAIN. SHE IS AOX1, NON-VERBAL BUT TRIES TO MOUTH WORDS TO YOU, AND BEDBOUND. SHE IS RECEIVING 8L OF OXYGEN VIA T-PIECE WITH COOL AEROSOL, TOLERATING WELL. BERGER CATHETER IS PATENT AND INTACT, DRAINING CLEAR AND YELLOW URINE BY GRAVITY. PATIENT HAS MULTIPLE WOUNDS THROUGHOUT THE BODY, WILL ADDRESS PER WOUND CARE PLAN. PT IS RECEIVING JEVITY AT 50 ML/HR, NO RESIDUAL. ELENA MIDLINE IS PATENT AND INTACT, INFUSING 1/2 NS AT 50 ML/HR. SAFETY MEASURES HAVE BEEN IMPLEMENTED, CALL LIGHT IS WITHIN REACH, SIDE RAILS UP X2, BED IS IN LOWEST AND LOCKED POSITION, WILL CONTINUE TO MONITOR FOR ANY CHANGES.
[2019-04-04] MEDS: BLOOD SUGAR DIAGNOSTIC 1 EACH STRIP IN SCH ×4 (07:47→22:10)
[2019-04-04] MEDS: PANTOPRAZOLE 40 MG TABLET.DR PO SCH (07:53)
[2019-04-04 08:00] VITALS: BP 154/84
[2019-04-04 08:13] LABS: CALCIUM, SERUM 8.4 mg/dL (8.5-10.1); CREATININE 0.3 mg/dL (0.6-1.3); POTASSIUM 4.2 mmol/L (3.5-5.1)
[2019-04-04] MEDS: HYDROGEL DRESSING 90 GM TUBE TP SCH (09:11)
[2019-04-04] MEDS: MORPHINE SULFATE INJ 2 MG/ML DISP.SYRIN IV PRN ×2 (09:18→17:56)
[2019-04-04] MEDS: PROSOURCE / PROSTAT (PYXIS) 30 ML UDC GT SCH (09:19)
[2019-04-04] MEDS: ERYTHROMYCIN BASE OPHTH 3.5 GM TUBE EACHEYE SCH ×2 (11:38→21:42)
[2019-04-04] MEDS: OSMOLITE 1.2 CAL 1,000 ML LIQUID GT SCH (12:52)
[2019-04-04] MEDS: ENOXAPARIN SODIUM 40 MG/0.4 ML DISP.SYRIN SQ SCH (13:34)
[2019-04-04 16:00] VITALS: BP 143/75
[2019-04-04] MEDS: IV 1/2NS 1000 ML 1,000 ML IV PRN (18:35)
--- NOTE | 2019-04-04 19:37 | NUR ---
RN CLOSING NOTES PATIENT IS RESTING COMFORTABLY IN BED AT THIS TIME, DOES NO SHOW ANY S/SX OF RESP DISTRESS OR SOB OR PAIN. PT NEEDS HAVE BEEN MET, VITAL SIGNS ARE STABLE, NO ACUTE CHANGES OCCURRED THROUGHOUT THE SHIFT. SAFETY MEASURES HAVE BEEN IMPLEMENTED, CALL LIGHT IS WITHIN REACH, BED IS IN LOWEST AND LOCKED POSITION, SIDE RAILS UP X2, PT HAS BEEN ENDORSED TO NIGHTSHIFT RN FOR CONTINUITY OF CARE.
[2019-04-04 20:00] VITALS: BP 145/81
[2019-04-04] MEDS: CEFTRIAXONE 1 G in IV D5W 50 ML IV SCH (20:40)
[2019-04-05] MEDS: IPRATROPIUM NEB FS 0.5 MG/2.5 ML AMPUL.NEB NEB SCH ×6 (03:46→22:48)
[2019-04-05 04:00] VITALS: BP 153/78
[2019-04-05] MEDS: MORPHINE SULFATE INJ 2 MG/ML DISP.SYRIN IV PRN ×3 (04:33→14:26)
[2019-04-05 06:33] LABS: CALCIUM, SERUM 8.5 mg/dL (8.5-10.1); CREATININE 0.3 mg/dL (0.6-1.3); POTASSIUM 4.6 mmol/L (3.5-5.1)
[2019-04-05 06:36] LABS: BASOPHILS % (AUTO) 0.3 % (0.0-2.0); EOSINOPHILS % (AUTO) 2.7 % (0.0-6.0); HEMATOCRIT 27 % (33-45); HEMOGLOBIN 8.5 g/dL (11.5-14.8); LYMPHOCYTES # (AUTO) 0.5 /CMM (0.8-4.8); LYMPHOCYTES % (AUTO) 7.7 % (20.0-44.0); MEAN CORPUSCULAR HGB CONC 32 g/dl (31.0-36.0); MEAN CORPUSCULAR VOLUME 93 fL (82-100); MONOCYTES # (AUTO) 0.4 /CMM (0.1-1.30); MONOCYTES % (AUTO) 5.9 % (2.0-12.0); NEUTROPHILS # (AUTO) 5.8 /CMM (1.8-8.9); NEUTROPHILS % (AUTO) 83.4 % (43.0-81.0); PLATELET COUNT (AUTO) 258 /CMM (150-450); RED BLOOD CELL COUNT(AUTO) 2.85 MIL/uL (4.0-5.2); WHITE BLOOD COUNT (AUTO) 6.9 K/uL (4.3-11.0)
--- NOTE | 2019-04-05 07:20 | NUR ---
MS RN OPENING NOTE: RECEIVED PATIENT OBTUNDED IN BED. WITH 8LPM OF O2 VIA? TPIECE AND TRACH TUBE OF PORTEX7. TOLERATING WELL. NO SOB NOTED. NOT IN DISTRESS. WITH GTUBE, PATENT AND IN PLACE. FEEDING OF OSMOLITE 2 50MLS/HR BEING TOLERATED WELL. NO RESIDUAL NOTED. BERGER CATHETER IN PLACE AND DRAINING YELLOW URINE. WITH ELENA MIDLINE IV SITE. SITE CLEAN, SECURE AND PATENT. IV INFUSION OF 1/2 NS @50MLS/HR INFUSING WELL. NO PAIN NOTED AT THE MOMENT. CALL LIGHT IN REACH, SIDE RAILS UP, BED LOCKED, LOW AND AT SEMI-ADAMSON'S POSITION. WILL CONTINUE TO MONITOR.
--- NOTE | 2019-04-05 07:24 | NUR ---
MS RN CLOSING NOTE PATIENT IN BED WITH NO SIGN OF DISTRESS. PATIENT CONTINUES TO TOLERATE T-PIECE AT 8L. GTUBE IS PATENT AND TOLERATING AT 50CC/HR WITH LITTLE RESIDUAL. ALL NEEDS HAVE BEEN MET. ENDORSED PATIENT TO MORNING SHIFT NURSE FOR ELOY.
[2019-04-05] MEDS: ALBUTEROL FS 2.5 MG/0.5 ML VIAL.NEB NEB SCH ×4 (07:30→19:19)
[2019-04-05] MEDS: PANTOPRAZOLE 40 MG TABLET.DR PO SCH (07:59)
[2019-04-05] MEDS: BLOOD SUGAR DIAGNOSTIC 1 EACH STRIP IN SCH ×4 (07:59→21:07)
[2019-04-05 08:00] VITALS: BP 137/60
[2019-04-05] MEDS: ERYTHROMYCIN BASE OPHTH 3.5 GM TUBE EACHEYE SCH ×2 (09:24→20:15)
[2019-04-05] MEDS: PROSOURCE / PROSTAT (PYXIS) 30 ML UDC GT SCH (09:25)
[2019-04-05] MEDS: HYDROGEL DRESSING 90 GM TUBE TP SCH (09:25)
[2019-04-05 11:01] LABS: ABG OXYGEN SATURATION 90.6 % (92.0-98.5); ABG PCO2 55.6 mmHg (35.0-45.0); ABG PH 7.403 (7.350-7.450); ABG PO2 65.8 mmHg (75.0-100.0); AaDO2 68.2 mmHg; MetHb 0.3 % (0.0-1.5); O2Hb 89.4 % (94.0-97.0); SITE, ABG Right Radial; VENT MODE, BG CA
[2019-04-05] MEDS: OSMOLITE 1.2 CAL 1,000 ML LIQUID GT SCH (13:01)
[2019-04-05] MEDS: ENOXAPARIN SODIUM 40 MG/0.4 ML DISP.SYRIN SQ SCH (14:16)
[2019-04-05 16:00] VITALS: BP_SYST 124; BP_SYST 127; BP_DIAS 55
[2019-04-05 17:39] LABS: ABG BASE EXCESS 8.2 mmol/L; ABG OXYGEN SATURATION 89.9 % (92.0-98.5); ABG PCO2 60.6 mmHg (35.0-45.0); ABG PH 7.377 (7.350-7.450); ABG PO2 64.2 mmHg (75.0-100.0); AaDO2 151.3 mmHg; COHb 0.7 % (0.5-1.5); MetHb 0.2 % (0.0-1.5); O2Hb 89.1 % (94.0-97.0); SITE, ABG Right Radial; VENT MODE, BG CA
--- NOTE | 2019-04-05 17:57 | NUR ---
patient desaturates on cool aerosol despite fio2 at 40%,abg result relayed to dr. gutierrez and new order placed and carried out.pt placed on vent by rt as ordered.
[2019-04-05 17:59] VITALS: BP 127/55
--- NOTE | 2019-04-05 19:10 | NUR ---
PRODUCT SUPPORT TECHNICIAN CLOSING NOTE: PATIENT OBTUNDED IN BED. ORDERS FOR MECHANICAL VENTILATION WERE OBTAINED EARLIER ON SHIFT FOR DESATURATION NOTED. PATIENT TOLERATING CURRENT VENT SETTINGS WELL, TRACH TUBE OF PORTEX7, SATURATION OF 98% NOTED. NO SOB NOTED. NOT IN DISTRESS. WITH GTUBE, PATENT AND IN PLACE. FEEDING OF OSMOLITE 2 50MLS/HR BEING TOLERATED WELL. NO RESIDUAL NOTED. BERGER CATHETER IN PLACE AND DRAINING YELLOW URINE. WITH ELENA MIDLINE IV SITE. SITE CLEAN, SECURE AND PATENT. IV INFUSION OF 1/2 NS @50MLS/HR INFUSING WELL. NO PAIN NOTED AT THE MOMENT. CALL LIGHT IN REACH, SIDE RAILS UP, BED LOCKED, LOW AND AT SEMI-ADAMSON'S POSITION. ENDORSED TO ONCOMING SHIFT FOR ELOY.
[2019-04-05] MEDS: IV 1/2NS 1000 ML 1,000 ML IV PRN (19:18)
--- NOTE | 2019-04-05 19:23 | NUR ---
BRAKE REPAIRER AIR OPENING NOTES RECEIVED PATIENT IN BED, NONVERBAL, MOUTHS WORDS. ON TELE MONITOR SINUS TACHY WITH HR 118. ON TRACH MECHANICAL VENTILATION SETTINGS ORDERED, TOLERATING WELL, NO SOB OR RESPIRATORY DISTRESS NOTED, SATURATING 97% AT THE MOMENT. GTUBE FLUSHING AND PATENT, MINIMAL RESIDUAL NOTED, GTF RUNNING ORDERED. BERGER CATHETER IN PLACE AND DRAINING YELLOW URINE NOTED. IV SITE ELENA MIDLINE, FLUSHING AND PATENT, SITE CLEAN, DRY AND INTACT; IVF RUNNING AT 50MLS/HR, NO INFILTRATION NOTED. SAFETY MEASURES IN PLACE; CALL LIGHT WITHIN REACH, SIDE RAILS UP X2, BED LOCKED AND IN LOW POSITION, HOB ELEVATED. WILL CONT TO MONITOR PT CLOSELY.
[2019-04-05 20:00] VITALS: BP 102/61
[2019-04-05] MEDS: CEFTRIAXONE 1 G in IV D5W 50 ML IV SCH (20:14)
--- NOTE | 2019-04-05 21:12 | NUR ---
PT RCVD TRACH'D ON MECHANICAL VENT WITH CHARTED SETTINGS. PT LLOYD TX WELL. SX DONE. PT TRACH IS PATENT AND SECURE. VENT ALARMS APPEAR TO BE FUNCTIONING PROPERLY. VENT PLUGGED INTO RED OUTLET. AMBU BAG AT BEDSIDE. NO SOB NOTED. Addendum: 04/05/19 at 2113 by DEBBIE SIMPSON RT Amended: Links added.
[2019-04-06] VITALS (7 sets, daily range): BP systolic 95–117; BP diastolic 52–66
[2019-04-06] MEDS: IPRATROPIUM NEB FS 0.5 MG/2.5 ML AMPUL.NEB NEB SCH ×6 (03:19→23:22)
[2019-04-06] MEDS: MORPHINE SULFATE INJ 2 MG/ML DISP.SYRIN IV PRN (05:18)
[2019-04-06] MEDS: OSMOLITE 1.2 CAL 1,000 ML LIQUID GT SCH (06:14)
[2019-04-06 06:26] LABS: BASOPHILS % (AUTO) 0.2 % (0.0-2.0); EOSINOPHILS % (AUTO) 1.4 % (0.0-6.0); HEMATOCRIT 24 % (33-45); HEMOGLOBIN 7.9 g/dL (11.5-14.8); LYMPHOCYTES # (AUTO) 0.5 /CMM (0.8-4.8); LYMPHOCYTES % (AUTO) 6.2 % (20.0-44.0); MEAN CORPUSCULAR HGB CONC 33 g/dl (31.0-36.0); MEAN CORPUSCULAR VOLUME 92 fL (82-100); MONOCYTES # (AUTO) 0.3 /CMM (0.1-1.30); MONOCYTES % (AUTO) 3.8 % (2.0-12.0); NEUTROPHILS # (AUTO) 6.9 /CMM (1.8-8.9); NEUTROPHILS % (AUTO) 88.4 % (43.0-81.0); PLATELET COUNT (AUTO) 259 /CMM (150-450); RED BLOOD CELL COUNT(AUTO) 2.58 MIL/uL (4.0-5.2); WHITE BLOOD COUNT (AUTO) 7.8 K/uL (4.3-11.0)
--- NOTE | 2019-04-06 07:40 | NUR ---
CAR WORKER HELPER NOTE PATIENT IN BED NONVERBAL WITH CLOSED EYES ,ON TELE MONITOR ST HR 105 AT THIS TIME WITH G TUBE FEEDING ORDERED ,NO RESIDUAL NOTED , KEEP HOB ELEVATED AT ALL TIME ,WITH TRACH TO VENT SETTING ORDERED , AMBU BAG AT HOB, RT UA MID LINE IN PLACE , ON IVF ORDERED , BED IN LOWERS AND LOCKED POSITION , CALL LIGHT WITHIN REACH , WILL CONT TO MONITOR CLOSELY, WITH BERGER CATH TO GRAVITY WITH YELLOW COLOR URINE
[2019-04-06 08:10] LABS: CALCIUM, SERUM 8.4 mg/dL (8.5-10.1); CREATININE 0.3 mg/dL (0.6-1.3); POTASSIUM 4.4 mmol/L (3.5-5.1)
[2019-04-06] MEDS: PROSOURCE / PROSTAT (PYXIS) 30 ML UDC GT SCH (09:02)
[2019-04-06] MEDS: ERYTHROMYCIN BASE OPHTH 3.5 GM TUBE EACHEYE SCH ×2 (09:02→20:51)
[2019-04-06] MEDS: HYDROGEL DRESSING 90 GM TUBE TP SCH (09:02)
[2019-04-06] MEDS: PANTOPRAZOLE 40 MG TABLET.DR PO SCH (09:06)
[2019-04-06] MEDS: BLOOD SUGAR DIAGNOSTIC 1 EACH STRIP IN SCH ×4 (09:08→22:01)
--- NOTE | 2019-04-06 09:22 | NUR ---
KAIAKO KOHANGA REO NOTE DR ARGUETA AT BEDSIDE AND RT, SAT IS 89-92 5,TRACH CARE DONE ,SUCTION DONE, MOUTH CARE DONE , DR ARGUETA ORDERED ABG , ISAI RN DISPLAY FABRICATION SUPERVISOR NOTIFIED THAT BP 95/[address] ARGUETA AWARE THAT T 99.4
[2019-04-06 09:25] LABS: ABG BASE EXCESS 10.1 mmol/L; ABG OXYGEN SATURATION 98.1 % (92.0-98.5); ABG PH 7.443 (7.350-7.450); AaDO2 99.3 mmHg; COHb 0.8 % (0.5-1.5); O2Hb 97.3 % (94.0-97.0); SITE, ABG Right Radial; VENT MODE, BG AC 12 450 40% +5
[2019-04-06] MEDS: ALBUTEROL FS 2.5 MG/0.5 ML VIAL.NEB NEB SCH ×4 (09:36→19:41)
--- NOTE | 2019-04-06 09:43 | NUR ---
EMERY WHEEL WORKER NOTE ABG'S COMPLETED, DR. ARGUETA NOTIFIED OF RESULTS, NO NEW ORDER GIVEN AT THIS TIME.
[2019-04-06] MEDS: IV NS 0.9% 1,000 ML IV PRN (10:43)
--- NOTE | 2019-04-06 10:49 | NUR ---
RESTAURANT KITCHEN AND SERVICE MANAGER NOTES UNRULY NG PLASTICS SUPERVISOR WOUND CARE NURSE AT BED SIDE DEBRIDEMENT AT BED SIDE, WOUND CULTURE COLLECTED, LABORATORY CALLED. FOOT AT BEDSIDE, WOUND ON LEFT FOOT CHECKED
[2019-04-06] MEDS ORDERED: IV NS 0.9% 1,000 ML BAG IV PRN (11:00)
--- NOTE | 2019-04-06 12:30 | NUR ---
CHEMICAL PRODUCTION ENGINEER NOTES: ROUNDS MADE ,CONTINUE ON VENT SETTING AND G-TUBE FEEDING, WILL MONITORING
[2019-04-06] MEDS: ACETYLCYSTEINE 10% SOLN 400 MG/4 ML VIAL NEB SCH ×3 (13:27→23:22)
[2019-04-06] MEDS: ENOXAPARIN SODIUM 40 MG/0.4 ML DISP.SYRIN SQ SCH (13:45)
--- NOTE | 2019-04-06 14:43 | NUR ---
BI SOLUTIONS ARCHITECT NOTES: RT AT BEDSIDE BREATHING TREATMENT DONE, REPOSITION DONE, SAT 100% WILL MONITOR
--- NOTE | 2019-04-06 18:06 | NUR ---
television announcer note rt at bedside ,trach suction done, cont on ivf as ordered and g tube feeding tolerated well ,keep hob elevated ,will monitor
--- NOTE | 2019-04-06 18:25 | NUR ---
PAPER GUILLOTINE OPERATOR NOTE ALL NEEDS ATTENDED SAT 100% AT THIS TIME, CONT ON VENT SETTING ORDERED, WILL MONITOR
--- NOTE | 2019-04-06 19:25 | NUR ---
TELE/RN NOTES Patient in bed, Awake, A/O x3-4, No S/S of acute distress noted, breathing even and unlabored, No SOB noted, Denies any pain at this time, on tele monitoring with sinus rhythm. IV sites with no s/s of infection, infiltration. Safety maintained, bed at the lowest locked position. Clean and dry. Call light within reach, Will continue to monitor as per plan of care. Addendum: 04/06/19 at 2009 by NIRAV CARVAJAL RN Disregard notes, charted on wrong patient
--- NOTE | 2019-04-06 19:25 | NUR ---
TELE/RN NOTES Patient in bed, Awake, A/O x1, open eyes, raises eyebrows for answers, No S/S of acute distress noted, Trach intact, patent, connected to vent with prescribed settings, breathing even and unlabored, No SOB noted, no S/S of pain at this time, on tele monitoring with sinus Tachy rate 106. IV sites with no s/s of infection, infiltration. G-tube in place, patent, connected to feeding as ordered, HOB elevated, for aspiration precautions. Safety maintained, bed at the lowest locked position. Clean and dry. Call light within reach, Will continue to monitor as per plan of care.
--- NOTE | 2019-04-06 19:44 | NUR ---
RT NOTE PATIENT RECEIVED TRACH'D ON MECHANICAL VENT. PATIENT IS TOLERATING CURRENT ORDERED VENT SETTINGS. NO SIGNS OF RESPIRATORY DISTRESS NOTED. TRACH IS PATENT AND SECURE. ALARMS ARE SET AND AUDIBLE. MECHANICAL VENT IS PLUGGED INTO RED OUTLET. EMERGENCY EQUIPMENT IS AT PATIENT BEDSIDE. WILL CONTINUE TO MONITOR. Addendum: 04/06/19 at 1948 by JAYCE HAMMER RT Amended: Links added.
[2019-04-06] MEDS: CEFTRIAXONE 1 G in IV D5W 50 ML IV SCH (20:50)
[2019-04-07] VITALS: BP 101/59
[2019-04-07] MEDS: IV NS 0.9% 1,000 ML IV PRN ×2 (01:32→14:16)
[2019-04-07] MEDS: IPRATROPIUM NEB FS 0.5 MG/2.5 ML AMPUL.NEB NEB SCH ×6 (03:48→23:41)
[2019-04-07 04:00] VITALS: BP 116/64
[2019-04-07] MEDS: OSMOLITE 1.2 CAL 1,000 ML LIQUID GT SCH (04:14)
[2019-04-07 06:28] LABS: BASOPHILS % (AUTO) 0.3 % (0.0-2.0); EOSINOPHILS % (AUTO) 3.2 % (0.0-6.0); HEMATOCRIT 21 % (33-45); HEMOGLOBIN 7.1 g/dL (11.5-14.8); LYMPHOCYTES # (AUTO) 0.4 /CMM (0.8-4.8); LYMPHOCYTES % (AUTO) 8.7 % (20.0-44.0); MEAN CORPUSCULAR HGB CONC 33 g/dl (31.0-36.0); MEAN CORPUSCULAR VOLUME 93 fL (82-100); MONOCYTES # (AUTO) 0.3 /CMM (0.1-1.30); MONOCYTES % (AUTO) 5.7 % (2.0-12.0); NEUTROPHILS # (AUTO) 4.2 /CMM (1.8-8.9); NEUTROPHILS % (AUTO) 82.1 % (43.0-81.0); PLATELET COUNT (AUTO) 266 /CMM (150-450); RED BLOOD CELL COUNT(AUTO) 2.29 MIL/uL (4.0-5.2); WHITE BLOOD COUNT (AUTO) 5.1 K/uL (4.3-11.0)
[2019-04-07 06:48] LABS: CALCIUM, SERUM 8.2 mg/dL (8.5-10.1); CREATININE 0.3 mg/dL (0.6-1.3); MAGNESIUM 2.2 mg/dL (1.8-2.4); PHOSPHORUS 3.4 mg/dL (2.5-4.9); POTASSIUM 4.6 mmol/L (3.5-5.1)
--- NOTE | 2019-04-07 06:57 | NUR ---
TELE/RN NOTES Patient remained in bed, Awake, A/O to her base line, No S/S of acute distress noted, Trach intact, patent, connected to vent with prescribed settings, breathing even and unlabored, No SOB noted, no S/S of pain at this time, on tele monitoring with sinus Tachy. IV sites with no s/s of infection, infiltration. G-tube in place, patent, connected to feeding as ordered, HOB elevated, for aspiration precautions. Safety maintained, Fierro cath in place, patent, draining well with clear, yellow color urine with out 750 in this shift, due meds given, treatments rendered as ordered, tolerated well. bed at the lowest locked position. Clean and dry. Call light within reach, Endorse to AM shift nurse for ELOY.
--- NOTE | 2019-04-07 07:15 | NUR ---
RN INITIAL NOTE PATIENT IN BED, ASLEEP BUT EASILY AROUSABLE TO NAME AND TOUCH. ON VENT, SATING >95%. NO COMPLAINS OF ANY SOB NOR PAIN NOTED. ON TELE MONITOR, SR/ST. HAS A BERGER CATH WITH CLEAR AND YELLOW URINE. HAS A RIGHT UA MIDLINE WITH NS AT 75 ML/HR. BED LOCKED AND IN LOWEST POSITION. CALL LIGHT WITHIN REACH. WILL CONTINUE TO MONITOR
[2019-04-07] MEDS: BLOOD SUGAR DIAGNOSTIC 1 EACH STRIP IN SCH ×4 (07:55→21:29)
[2019-04-07 08:00] VITALS: BP_SYST 103; BP_SYST 158; BP_DIAS 64; BP_DIAS 88
[2019-04-07] MEDS: ALBUTEROL FS 2.5 MG/0.5 ML VIAL.NEB NEB SCH ×4 (08:00→20:04)
[2019-04-07] MEDS: ACETYLCYSTEINE 10% SOLN 400 MG/4 ML VIAL NEB SCH ×3 (08:00→23:42)
[2019-04-07] MEDS: PANTOPRAZOLE 40 MG TABLET.DR PO SCH (08:28)
[2019-04-07] MEDS: PROSOURCE / PROSTAT (PYXIS) 30 ML UDC GT SCH (09:14)
[2019-04-07] MEDS: HYDROGEL DRESSING 90 GM TUBE TP SCH (09:14)
[2019-04-07] MEDS: ERYTHROMYCIN BASE OPHTH 3.5 GM TUBE EACHEYE SCH ×2 (09:15→21:28)
[2019-04-07 12:00] VITALS: BP 108/65
[2019-04-07] MEDS: ENOXAPARIN SODIUM 40 MG/0.4 ML DISP.SYRIN SQ SCH (12:25)
[2019-04-07 14:58] LABS: IRON, SERUM 12 ug/dl (50-175); TOTAL IRON BINDING CAPACITY 141 ug/dl (250-450)
[2019-04-07 16:00] VITALS: BP 117/68
--- NOTE | 2019-04-07 18:53 | NUR ---
RN CLOSING NOTE PATIENT IN BED, AWAKE AND ALERTX1. MOUTHS WORDS. ON VENT, SATING WELL AT 100%. HAS BERGER CATH WITH CLEAR AND YELLOW URINE. HAS GTF WITH 50 ML/HR. RIGHT UA MIDLINE WITH NS AT 50 ML/HR. NO INSULIN COVERAGE. BED LOCKED AND IN LOWEST POSITION. CALL LIGHT WITHIN REACH. WILL ENDORSE TO NOC SHIFT FOR ELOY
--- NOTE | 2019-04-07 19:25 | NUR ---
TELE/RN NOTES Patient in bed, Awake, A/O x1, open eyes, raises eyebrows for answers, mouth words, No S/S of acute distress noted, Trach intact, patent, connected to vent with prescribed settings, breathing even and unlabored, No SOB noted, no S/S of pain at this time, on tele monitoring with sinus Tachy. IV sites with no s/s of infection, infiltration. G-tube in place, patent, connected to feeding as ordered, HOB elevated, for aspiration precautions. Fierro cath in place, patent, draining well with clear yellow color urine. Safety maintained, bed at the lowest locked position. Clean and dry. Call light within reach, Will continue to monitor as per plan of care.
[2019-04-07 20:00] VITALS: BP 100/61
[2019-04-07] MEDS: MORPHINE SULFATE INJ 2 MG/ML DISP.SYRIN IV PRN (21:29)
[2019-04-08] VITALS (10 sets, daily range): BP systolic 100–148; BP diastolic 53–69
[2019-04-08] MEDS: IPRATROPIUM NEB FS 0.5 MG/2.5 ML AMPUL.NEB NEB SCH ×6 (02:51→23:28)
[2019-04-08] MEDS: OSMOLITE 1.2 CAL 1,000 ML LIQUID GT SCH ×2 (04:04→23:18)
[2019-04-08 06:57] LABS: BASOPHILS % (AUTO) 0.3 % (0.0-2.0); EOSINOPHILS % (AUTO) 2.9 % (0.0-6.0); LYMPHOCYTES # (AUTO) 0.5 /CMM (0.8-4.8); LYMPHOCYTES % (AUTO) 11.5 % (20.0-44.0); MEAN CORPUSCULAR HGB CONC 33 g/dl (31.0-36.0); MEAN CORPUSCULAR VOLUME 92 fL (82-100); MONOCYTES # (AUTO) 0.2 /CMM (0.1-1.30); MONOCYTES % (AUTO) 5.9 % (2.0-12.0); NEUTROPHILS # (AUTO) 3.3 /CMM (1.8-8.9); NEUTROPHILS % (AUTO) 79.4 % (43.0-81.0); PLATELET COUNT (AUTO) 289 /CMM (150-450); RED BLOOD CELL COUNT(AUTO) 2.15 MIL/uL (4.0-5.2); WHITE BLOOD COUNT (AUTO) 4.1 K/uL (4.3-11.0)
[2019-04-08 06:58] LABS: CALCIUM, SERUM 8.2 mg/dL (8.5-10.1); CREATININE 0.3 mg/dL (0.6-1.3); POTASSIUM 4.5 mmol/L (3.5-5.1)
[2019-04-08 07:05] LABS: HEMATOCRIT 20 % (33-45); HEMOGLOBIN 6.5 g/dL (11.5-14.8)
--- NOTE | 2019-04-08 07:05 | NUR ---
labs called at this time for critical lab values, HGB 6.5 and HCT 20. Called [facility] group for Dr alvares, spoke with El. Waiting on response, Endorse to AM shift nurse to Follow up. Patient in no acute distress, breathing even and unlabored on prescribed, vent settings, No SOB noted, No S/S of pain at this time, Kept clean and comfortable. Call light within reach. Endorse to AM Shift nurse for ELOY
--- NOTE | 2019-04-08 07:15 | NUR ---
Dr. Card Called back at this time, asked me to call Dr Leary for orders, Endorse to AM shift nurse
--- NOTE | 2019-04-08 07:48 | NUR ---
PAEDIATRIC SURGEON NOTES PATIENT IS IN BED ASLEEP BUT EASILY WOKEN WITH NAME AND TOUCH. PATIENT OPENS EYES AND NODS FOR ANSWER. PATIENT DOES ATTEMPT TO SPEAK BUT CANNOT MAKE OUT WORLDS. PATIENT SHOWS NO SIGNS OF ACUTE DISTRESS , PATIENT TRACH , INTACT, PATENT AND CONNECTED WITH PRECRIBED SETTING . NO SOB. NO S/S OF PAIN. PATIET IS ON TELE MONITOR WITH ST/SR. PATIENT IV SIDE PATENT AND INTACT WITH 75 ML/ HR PATIENT G TUBE HAS 50 ML/HR PATIENT GTUBE IS PATENT FLUSHED AND INTACT. NO SIGNS OF LEAKING. PATIENT BERGER CATH IN PLACED, PATENT. CLEAR AND YELLOW. BED LOCKED AND LOWEST POSITION, CALL LIGHT WITH IN REACH. ALL SAFETY PRECAUTION IMPLEMENTED PER HOSPITAL PROTOCOL
[2019-04-08] MEDS: ACETYLCYSTEINE 10% SOLN 400 MG/4 ML VIAL NEB SCH ×3 (07:53→23:28)
[2019-04-08] MEDS: ALBUTEROL FS 2.5 MG/0.5 ML VIAL.NEB NEB SCH ×4 (07:53→19:45)
[2019-04-08] MEDS: BLOOD SUGAR DIAGNOSTIC 1 EACH STRIP IN SCH ×4 (08:58→21:29)
[2019-04-08] MEDS: PANTOPRAZOLE 40 MG TABLET.DR PO SCH (08:59)
[2019-04-08 09:08] LABS: EOSINOPHILS % (MANUAL) 3 % (0-4); LYMPHOCYTES % (MANUAL) 10 % (16-48); MONOCYTES % (MANUAL) 7 % (0-11.0); NEUTROPHILS % (MANUAL) 80 (42-76)
[2019-04-08] MEDS: PROSOURCE / PROSTAT (PYXIS) 30 ML UDC GT SCH (09:13)
[2019-04-08] MEDS: ERYTHROMYCIN BASE OPHTH 3.5 GM TUBE EACHEYE SCH ×2 (09:14→21:29)
[2019-04-08] MEDS: HYDROGEL DRESSING 90 GM TUBE TP SCH (09:15)
[2019-04-08] MEDS: IV NS 0.9% 1,000 ML IV PRN (09:58)
[2019-04-08] MEDS: MORPHINE SULFATE INJ 2 MG/ML DISP.SYRIN IV PRN ×3 (11:42→21:28)
[2019-04-08] MEDS ORDERED: CEFTRIAXONE 1GM BAG (ER ONLY) 1 GM/50 ML PIGGYBACK IV SCH (13:30)
[2019-04-08] MEDS ORDERED: FEE PK DOSING 1 MIN EA MC ONE (13:46)
[2019-04-08] MEDS: CEFTRIAXONE 1 G in IV D5W 50 ML IV SCH (14:04)
[2019-04-08] MEDS ORDERED: VANCOMYCIN 1 GM in IV D5W 250 ML IV ONE (15:00)
[2019-04-08] MEDS: VANCOMYCIN 0.75 GM in IV D5W 250 ML IV SCH (16:58)
--- NOTE | 2019-04-08 17:03 | NUR ---
RT Patient received trach'd and on [facility] vent w charted settings. Vent is plugged into the red outlet w bvm @ hob. Alarms are set and audible. Pt is alert and non verbal. Pt is stable. No respiratory distress or sob t/o shift. Will continue to monitor. Addendum: 04/08/19 at 1719 by ROSANA MAURER RT Amended: Links added.
--- NOTE | 2019-04-08 18:47 | NUR ---
EQUIPMENT MONITOR PHOTOTYPESETTING NOTES 120 BS - NO COVERAGE.
--- NOTE | 2019-04-08 18:48 | NUR ---
COSTUME RENTAL CLERK NOTES BLOOD TRANSFUSION STARTED - PATIENT SHOWS NO SIGNS OF ADVERSE REACTION
--- NOTE | 2019-04-08 19:36 | NUR ---
MODERN AND CONTEMPORARY ART CURATOR NOTES PATIENT ENDORSED TO PM SHIFT. PATIENT IS A/O X4 PATIENT IS NON VERBAL. PATIENT IS AWARE OF SURROUNDINGS. IS ON VENT PER DOCTORS ORDER SETTINGS .PATIENT IS SATURATING WELL AT 98 PERCENT. PATIENT IS ON TELE MONITOR IN THE 90'S SR AT TIMES PATIENT IS ST IN THE 100'S PATIENT SHOWS NO SIGNS OF SOB, NO PAIN, EVEN AND UNLABORED BREATHING . PATIENT IS CURRENTLY HAVING BLOOD TRANSFUSION OF 1 UNIT OF BLOOD NOS SIGNS OF ADVERSE REACTION. BED LOCKED AND LOWEST POSITION CALL LIGHT WITH IN REACH .ALL SAFE PRECAUTION IMPLEMENTED PER HOSPITAL PROTOCOL
[2019-04-08] MEDS: PANTOPRAZOLE 40 MG VIAL IV SCH (21:28)
[2019-04-08 22:47] LABS: HEMOGLOBIN 9.1 g/dL (11.5-14.8)
[2019-04-09] VITALS (7 sets, daily range): BP systolic 112–148; BP diastolic 58–92
[2019-04-09] MEDS: IPRATROPIUM NEB FS 0.5 MG/2.5 ML AMPUL.NEB NEB SCH ×6 (03:39→23:36)
[2019-04-09] MEDS: MORPHINE SULFATE INJ 2 MG/ML DISP.SYRIN IV PRN (05:38)
--- NOTE | 2019-04-09 06:00 | NUR ---
RN NOTE UNABLE TO GET ACCURATE WEIGHT AT THIS TIME DUE TO BED SCALE NOT WORKING. CHARGE NURSE OZIEL MADE AWARE. Addendum: 04/09/19 at 0641 by RENATE HAYDEN RN Amended: Links added.
[2019-04-09 06:19] LABS: BASOPHILS % (AUTO) 0.2 % (0.0-2.0); EOSINOPHILS % (AUTO) 1.2 % (0.0-6.0); HEMATOCRIT 27 % (33-45); LYMPHOCYTES # (AUTO) 0.3 /CMM (0.8-4.8); LYMPHOCYTES % (AUTO) 3.5 % (20.0-44.0); MEAN CORPUSCULAR HGB CONC 33 g/dl (31.0-36.0); MEAN CORPUSCULAR VOLUME 91 fL (82-100); MONOCYTES # (AUTO) 0.3 /CMM (0.1-1.30); MONOCYTES % (AUTO) 3.5 % (2.0-12.0); NEUTROPHILS # (AUTO) 8.2 /CMM (1.8-8.9); NEUTROPHILS % (AUTO) 91.6 % (43.0-81.0); PLATELET COUNT (AUTO) 346 /CMM (150-450); RED BLOOD CELL COUNT(AUTO) 2.98 MIL/uL (4.0-5.2); WHITE BLOOD COUNT (AUTO) 8.9 K/uL (4.3-11.0)
[2019-04-09 06:31] LABS: CALCIUM, SERUM 8.3 mg/dL (8.5-10.1); CREATININE 0.4 mg/dL (0.6-1.3); MAGNESIUM 1.9 mg/dL (1.8-2.4); POTASSIUM 4.5 mmol/L (3.5-5.1)
--- NOTE | 2019-04-09 07:24 | NUR ---
RN CLOSING NOTE PATIENT IS AWAKE IN BED WITH HOB ELEVATED. PT ON MECHANICAL VENTILATOR AND TOLERATING WELL. TRACH MID LINE AND IN PLACE. GT IN PLACE, PATENT AND FLUSHING WELL. CURRENTLY RUNNING WITH TUBE FEEDING OF OSMOLITE 1.2 @50CC/HR. WITH 0.9% NS @50CC/HR VIA MIDLINE. NO INDICATIONS OF PAIN OR DISCOMFORT. ON TELE MONITOR SINUS TACHY 110. BED IN LOW POSITION. CALL LIGHT WITHIN REACH. ENDORSED TO MORNING SHIFT.
[2019-04-09] MEDS: ALBUTEROL FS 2.5 MG/0.5 ML VIAL.NEB NEB SCH ×5 (07:35→20:13)
[2019-04-09] MEDS: ACETYLCYSTEINE 10% SOLN 400 MG/4 ML VIAL NEB SCH ×3 (08:04→23:36)
[2019-04-09] MEDS: BLOOD SUGAR DIAGNOSTIC 1 EACH STRIP IN SCH ×4 (08:05→21:13)
[2019-04-09] MEDS: ERYTHROMYCIN BASE OPHTH 3.5 GM TUBE EACHEYE SCH ×2 (08:44→21:13)
[2019-04-09] MEDS: HYDROGEL DRESSING 90 GM TUBE TP SCH (08:44)
[2019-04-09] MEDS: PANTOPRAZOLE 40 MG VIAL IV SCH ×2 (08:44→21:11)
[2019-04-09] MEDS: PROSOURCE / PROSTAT (PYXIS) 30 ML UDC GT SCH (08:44)
[2019-04-09] MEDS: IV NS 0.9% 1,000 ML IV PRN (11:58)
[2019-04-09] MEDS: VANCOMYCIN 0.75 GM in IV D5W 250 ML IV SCH ×2 (12:00→23:29)
[2019-04-09] MEDS: CEFTRIAXONE 1 G in IV D5W 50 ML IV SCH (14:00)
[2019-04-09 17:20] LABS: OCCULT BLOOD STOOL NEGATIVE (NEGATIVE)
--- NOTE | 2019-04-09 18:26 | NUR ---
RELIABILITY TECHNOLOGIST CLOSING Patient A/Ox1-2. Able to mouth words. [facility], no SOB or acute distress. Tele monitor attached, sinus rhythm, highest HR 126. Bowel movement watery brown x3, sent for stool OB & stool culture as ordered. Oral and wound care completed. Afebrile throughout shift.
--- NOTE | 2019-04-09 19:15 | NUR ---
RN NOTE RECEIVED PT IN BED WITH HEAD OF BED ELEVATED. CURRENTLY ON MECHANICAL VENTILATOR AND TOLERATING WELL. NO ACUTE DISTRESS NOTED. ABLE TO MOUTH WORDS. GT PATENT AND FLUSHING WELL. VERIFIED PLACEMENT VIA AUSCULTATION. WITH IVF RUNNING 0.9% NS @50ML/HOUR. PT REPOSITIONED. ON TELE MONITOR SINUS RHTHYM AND SINUS TACHYCARDIA. CALL LIGHT WITHIN REACH, WILL MONITOR.
--- NOTE | 2019-04-09 20:15 | NUR ---
PT RELIEVED ON VENT VIA TRACH SECURED VIA TRACH TIE, AIRWAY PATENT. PT ALERT. SUCTIONED A SMALL AMOUNT OF THICK KU SECRETIONS. AMBU BAG AT BEDSIDE ALARMS SET AND AUDIBLE. PT RECEIVING ALBUTEROL AND ATROVENT Q6 AT THIS TIME. NO RESP DISTRESS NOTED. Addendum: 04/09/19 at 2018 by JOCELINE VO RT Amended: Links added.
[2019-04-09] MEDS: OSMOLITE 1.2 CAL 1,000 ML LIQUID GT SCH (21:14)
[2019-04-10] VITALS: BP 127/69
[2019-04-10] MEDS: IPRATROPIUM NEB FS 0.5 MG/2.5 ML AMPUL.NEB NEB SCH ×5 (03:41→20:19)
[2019-04-10 04:00] VITALS: BP 132/76
--- NOTE | 2019-04-10 06:00 | NUR ---
unable to obtain accurate weight due to bed scale not working. Charge nurse Shravan abbott. Addendum: 04/10/19 at 0657 by RENATE HAYDEN RN Amended: Links added.
[2019-04-10 06:29] LABS: BASOPHILS % (AUTO) 0.4 % (0.0-2.0); EOSINOPHILS % (AUTO) 2.8 % (0.0-6.0); HEMATOCRIT 24 % (33-45); HEMOGLOBIN 7.8 g/dL (11.5-14.8); LYMPHOCYTES # (AUTO) 0.4 /CMM (0.8-4.8); LYMPHOCYTES % (AUTO) 7.8 % (20.0-44.0); MEAN CORPUSCULAR HGB CONC 33 g/dl (31.0-36.0); MEAN CORPUSCULAR VOLUME 93 fL (82-100); MONOCYTES # (AUTO) 0.3 /CMM (0.1-1.30); MONOCYTES % (AUTO) 5.2 % (2.0-12.0); NEUTROPHILS # (AUTO) 4.3 /CMM (1.8-8.9); NEUTROPHILS % (AUTO) 83.8 % (43.0-81.0); PLATELET COUNT (AUTO) 327 /CMM (150-450); RED BLOOD CELL COUNT(AUTO) 2.58 MIL/uL (4.0-5.2); WHITE BLOOD COUNT (AUTO) 5.1 K/uL (4.3-11.0)
[2019-04-10 07:04] LABS: CALCIUM, SERUM 7.7 mg/dL (8.5-10.1); CREATININE 0.3 mg/dL (0.6-1.3); POTASSIUM 3.7 mmol/L (3.5-5.1)
--- NOTE | 2019-04-10 07:30 | NUR ---
RN CLOSING NOTE PT IS IN BED WITH HEAD OF BED ELEVATED WITHOUT SIGNS OF DISTRESS. ON MECHANICAL VENTILATOR AND TOLERATING WELL. NO INDICATIONS OF PAIN OR DISCOMFORT. ON TELE MONITOR SINUS TACHYCARDIA. CALL LIGHT WITHIN REACH. ENDORSED TO MORNING SHIFT.
[2019-04-10] MEDS: ACETYLCYSTEINE 10% SOLN 400 MG/4 ML VIAL NEB SCH ×2 (07:44→14:52)
[2019-04-10] MEDS: ALBUTEROL FS 2.5 MG/0.5 ML VIAL.NEB NEB SCH ×4 (07:44→20:19)
[2019-04-10 08:00] VITALS: BP 134/73
[2019-04-10] MEDS: BLOOD SUGAR DIAGNOSTIC 1 EACH STRIP IN SCH ×4 (08:06→23:28)
[2019-04-10] MEDS: PANTOPRAZOLE 40 MG VIAL IV SCH ×2 (08:07→22:43)
[2019-04-10] MEDS: PROSOURCE / PROSTAT (PYXIS) 30 ML UDC GT SCH (08:07)
[2019-04-10] MEDS: HYDROGEL DRESSING 90 GM TUBE TP SCH (08:08)
[2019-04-10] MEDS: ERYTHROMYCIN BASE OPHTH 3.5 GM TUBE EACHEYE SCH ×2 (08:08→22:46)
[2019-04-10] MEDS: MORPHINE SULFATE INJ 2 MG/ML DISP.SYRIN IV PRN ×3 (08:23→17:01)
[2019-04-10 12:00] VITALS: BP 121/64
[2019-04-10] MEDS: IV NS 0.9% 1,000 ML IV PRN (12:21)
[2019-04-10] MEDS: CLOTRIMAZOLE 1% 15 GM TUBE TP SCH ×2 (13:07→17:03)
[2019-04-10] MEDS: VANCOMYCIN 0.75 GM in IV D5W 250 ML IV SCH ×2 (13:30→23:28)
[2019-04-10] MEDS: CEFTRIAXONE 1 G in IV D5W 50 ML IV SCH (14:50)
[2019-04-10 16:00] VITALS: BP 148/77
[2019-04-10] MEDS ORDERED: INSULIN REGULAR, HUMAN 100 UNIT/ML 3 ML VIAL SQ PRN (16:30)
[2019-04-10] MEDS ORDERED: DEXTROSE 50%-WATER 50 ML DISP.SYRIN IV PRN (16:30)
--- NOTE | 2019-04-10 16:44 | NUR ---
RT Patient received trach'd and on [facility] vent w charted settings. Vent is plugged into the red outlet w bvm @ hob. Alarms are set and audible. Pt is stable. No respiratory distress or sob t/o shift. Will continue to monitor. Addendum: 04/10/19 at 1714 by ROSANA MAURER RT Amended: Links added.
[2019-04-10] MEDS: OSMOLITE 1.2 CAL 1,000 ML LIQUID GT SCH (19:02)
--- NOTE | 2019-04-10 19:50 | NUR ---
SHOE DRESSER NOTE PT IN BED ASLEEP, AROUSABLE MOUTH WORDS. NO VENT/TRACH, TOLERATING THE SETTINGS WELL. NO DISTRESS OR DISCOMFORT NOTED. NO S/S OF PAIN NOTED. ON TELE MONITOR ST 104. F/C INTACT AND PATENT DRAINING YELLOWISH COLOR URINE. GTF OSMOLITE INFUSING AT 50 ML/HR, 0 ML RESIDUAL NOTED. ELENA MIDLINE INFUSING NS AT 50 ML/HR, NO S/S OF INFILTRATION NOTED. REPOSITION HER FOR SKIN MANAGEMENT. SIDE RAILS UP X 2 AND CALL LIGHT WITHIN REACH. VSS. CONTINUE TO MONITOR HER.
[2019-04-10 20:00] VITALS: BP 116/59
[2019-04-11] VITALS: BP 121/65
[2019-04-11] MEDS: IPRATROPIUM NEB FS 0.5 MG/2.5 ML AMPUL.NEB NEB SCH ×3 (00:22→12:18)
[2019-04-11] MEDS: ACETYLCYSTEINE 10% SOLN 400 MG/4 ML VIAL NEB SCH ×2 (00:22→08:30)
[2019-04-11 07:54] LABS: CALCIUM, SERUM 8.2 mg/dL (8.5-10.1); CREATININE 0.4 mg/dL (0.6-1.3); THYROID STIMULATING HORMONE 3.625 uIU/mL (0.358-3.74)
[2019-04-11 08:00] VITALS: BP 132/70
[2019-04-11] MEDS: ERYTHROMYCIN BASE OPHTH 3.5 GM TUBE EACHEYE SCH (08:15)
[2019-04-11] MEDS: PANTOPRAZOLE 40 MG VIAL IV SCH (08:15)
[2019-04-11] MEDS: PROSOURCE / PROSTAT (PYXIS) 30 ML UDC GT SCH (08:15)
[2019-04-11] MEDS: HYDROGEL DRESSING 90 GM TUBE TP SCH (08:16)
[2019-04-11] MEDS: CLOTRIMAZOLE 1% 15 GM TUBE TP SCH (08:16)
[2019-04-11] MEDS: ALBUTEROL FS 2.5 MG/0.5 ML VIAL.NEB NEB SCH ×2 (08:31→12:18)
[2019-04-11 09:01] LABS: BASOPHILS % (AUTO) 0.2 % (0.0-2.0); EOSINOPHILS % (AUTO) 2.5 % (0.0-6.0); HEMATOCRIT 25 % (33-45); HEMOGLOBIN 8.3 g/dL (11.5-14.8); LYMPHOCYTES # (AUTO) 0.5 /CMM (0.8-4.8); LYMPHOCYTES % (AUTO) 9.2 % (20.0-44.0); MEAN CORPUSCULAR HGB CONC 33 g/dl (31.0-36.0); MEAN CORPUSCULAR VOLUME 92 fL (82-100); MONOCYTES # (AUTO) 0.3 /CMM (0.1-1.30); MONOCYTES % (AUTO) 5.3 % (2.0-12.0); NEUTROPHILS # (AUTO) 4.3 /CMM (1.8-8.9); NEUTROPHILS % (AUTO) 82.8 % (43.0-81.0); PLATELET COUNT (AUTO) 370 /CMM (150-450); RED BLOOD CELL COUNT(AUTO) 2.69 MIL/uL (4.0-5.2); WHITE BLOOD COUNT (AUTO) 5.2 K/uL (4.3-11.0)
[2019-04-11 12:00] VITALS: BP 128/68
[2019-04-11] MEDS ORDERED: OSMOLITE 1.2 CAL 1,000 ML LIQUID GT SCH (12:00)
[2019-04-11] MEDS: VANCOMYCIN 0.75 GM in IV D5W 250 ML IV SCH (12:07)
[2019-04-11] MEDS: IV NS 0.9% 1,000 ML IV PRN (12:07)
[2019-04-11] MEDS: BLOOD SUGAR DIAGNOSTIC 1 EACH STRIP IN SCH (12:08)
--- NOTE | 2019-04-11 12:30 | NUR ---
TOOL STRAIGHTENER NOTE SEEN BY .GOT NEW ORDER FOR D/C TO [facility].TO F/U WITH ID FOR ANTIBIOTIC THERAPY.CALL MADE TO .SPOKE TO HIM ON PHONE.TO CONTINUE IV ANTIBIOTICS FOR X4 WEEKS AND TO FOLLOW UP WITH ID OUTPATIENT SOON PATIENT GOT IN SNF.TO FAX CULTURE RESULT TO THE OFFICE.FAXED CULTURE RESULT TO THE DR RODRIGUEZ OFFICE.WILL CONTINUE TO MONITOR.
[2019-04-11] MEDS: CEFTRIAXONE 1 G in IV D5W 50 ML IV SCH (14:20)
--- NOTE | 2019-04-11 14:30 | NUR ---
PERSONAL BANKING ADVISOR NOTE CALL MADE TO KEN PEDROZA.SPOKE TO EFFIE NG AND GIVE REPORT.MADE AWARE ABOUT TO CONTINUE IV ANTIBIOTICS FOR X4 WEEKS AND TO F/U WITH AN OUT PATIENT LINN.RESPONSIBLE GREEN PARTY MADE AWARE ABOUT TRANSFER.
[2019-04-11] MEDS: MORPHINE SULFATE INJ 2 MG/ML DISP.SYRIN IV PRN (15:10)
--- NOTE | 2019-04-11 15:30 | NUR ---
VAUDEVILLE ACTOR NOTE PATIENT DISCHARGED TO [facility] IN STABLE CONDITION.NO SOB NO DISTRESS NOTED.VITAL SIGNS STABLE.PATIENT AXOX1 .ABLE TO ANSWER SIMPLE QUESTIONS.PRN PAIN MEDICATION.PATIENT C/O PAIN.ELENA MIDLINE INTACT AND PATENT.GT INTACT AND PATENT.TOOK ALL BELONGINGS AND DISCHARGE PAPER WORK.EXIT CARE GIVEN.PATIENT UNABLE .REPORT GIVEN TO EFFIE RN AT FACILITY.LEFT WITH RT WITH PARAMEDICS.
[2019-04-12 08:06] LABS: IMMUNOGLOBULIN A, SERUM 1007 mg/dL (87-352); IMMUNOGLOBULIN G, SERUM 2236 mg/dL (700-1600); IMMUNOGLOBULIN M, SERUM 77 mg/dL (26-217)
[2019-04-12 09:07] LABS: *SPE A/G RATIO 0.5 (0.7-1.7); *SPE ALBUMIN 2.2 g/dL (2.9-4.4); *SPE ALPHA-1-GLOBULIN 0.4 g/dL (0.0-0.4); *SPE ALPHA-2-GLOBULIN 0.9 g/dL (0.4-1.0); *SPE BETA GLOBULIN 1.2 g/dL (0.7-1.3); *SPE GLOBULIN, TOTAL 4.7 g/dL (2.2-3.9); *SPE M-SPIKE Not Observed g/dL (Not Observed); *SPEGAMMA GLOBULIN 2.3 g/dL (0.4-1.8)
== END 2019-04-11 15:30 | DRG 853 ==
LOC: ER 07:45 → TELE1 09:04 → MEDSG1 04-01 10:13 → TELE1 04-05 17:37
PROVIDERS: ADMIT Nurse Practitioner Acute Care
PROC: 0KBP0ZZ Excision of Left Hip Muscle, Open Approach (ICD-10-PCS; principal; 2019-03-31)
PROC: 0KBN0ZZ Excision of Right Hip Muscle, Open Approach (ICD-10-PCS; 2019-03-31)
PROC: 05H533Z Insertion of Infusion Device into Right Subclavian Vein, Percutaneous Approach (ICD-10-PCS; 2019-04-01)
PROC: 5A1955Z Respiratory Ventilation, Greater than 96 Consecutive Hours (ICD-10-PCS; 2019-04-05)
PROC: 30233N1 Transfusion of Nonautologous Red Blood Cells into Peripheral Vein, Percutaneous Approach (ICD-10-PCS; 2019-04-08)
DX: A41.9 Sepsis, unspecified organism (principal); L89.104 Pressure ulcer of unspecified part of back, stage 4; L89.154 Pressure ulcer of sacral region, stage 4; G92 Toxic encephalopathy; J96.01 Acute respiratory failure with hypoxia; J96.02 Acute respiratory failure with hypercapnia; J18.9 Pneumonia, unspecified organism; E43 Unspecified severe protein-calorie malnutrition; J44.0 Chronic obstructive pulmonary disease with (acute) lower respiratory infection; N39.0 Urinary tract infection, site not specified; R64 Cachexia; Z99.11 Dependence on respirator [ventilator] status; Z68.1 Body mass index [BMI] 19.9 or less, adult; D68.69 Other thrombophilia; M48.56XA Collapsed vertebra, not elsewhere classified, lumbar region, initial encounter for fracture; Z93.0 Tracheostomy status; I10 Essential (primary) hypertension; E87.6 Hypokalemia; H10.9 Unspecified conjunctivitis; R13.10 Dysphagia, unspecified; Z93.1 Gastrostomy status; Z90.2 Acquired absence of lung [part of]; D63.8 Anemia in other chronic diseases classified elsewhere; E88.09 Other disorders of plasma-protein metabolism, not elsewhere classified; E11.621 Type 2 diabetes mellitus with foot ulcer; L97.519 Non-pressure chronic ulcer of other part of right foot with unspecified severity; L97.529 Non-pressure chronic ulcer of other part of left foot with unspecified severity; M20.42 Other hammer toe(s) (acquired), left foot; M20.41 Other hammer toe(s) (acquired), right foot; L90.5 Scar conditions and fibrosis of skin; M24.522 Contracture, left elbow; M24.521 Contracture, right elbow; L89.896 Pressure-induced deep tissue damage of other site; M24.542 Contracture, left hand; M24.541 Contracture, right hand; M62.50 Muscle wasting and atrophy, not elsewhere classified, unspecified site; B96.4 Proteus (mirabilis) (morganii) as the cause of diseases classified elsewhere; M06.9 Rheumatoid arthritis, unspecified; M19.90 Unspecified osteoarthritis, unspecified site; Z79.4 Long term (current) use of insulin
CPT/HCPCS: 31720; 36415; 36600; 71045-TC; 72070-TC; 80048-TC; 80053-TC; 80061-TC; 80076-TC; 80202-TC; 81000-TC; 82272-TC; 82728-TC; 82784; 82803-TC; 82962-TC; 83540-TC; 83605-TC; 83735-TC; 84100-TC; 84155; 84165; 84443-TC; 84484-TC; 85025-TC; 85027-TC; 85730-TC; 86334; 86850-TC; 86921-TC; 87040-TC; 87045-TC; 87070-TC; 87081-TC; 87086-TC; 87186-TC; 93307-TC; 94002-TC; 94003-TC; 94640-TC; 94760-TC; 94762-TC; 94799-TC; A4216; A4217; A4623; A6248; A6253; A6403; A6407; A7526; C9113; G0378; J0696; J1650; J1815; J1956; J2270; J2543; J3370; J3480; J3490; J7030; J7040; J7050; J7060; P9016-BL; P9047

== ENCOUNTER 2019-05-25 15:48 | Inpatient (IN) | payer MEDICARE, BC, MEDICAID ==
[~2019-05-25] VITALS: Ht 165.1 cm; Wt 53.5 kg
--- NOTE | 2019-05-25 15:52 | NUR ---
BIB [facility] SN[facility] FOR FEVER, TACHYCARDIA, AND LOW O2 SAT, pt to bed 5, pt on monitor, pt with rfa22 md abram at bedside for eval
--- NOTE | 2019-05-25 16:05 | NUR ---
RT Pt received trached in ER and placed on vent with noted settings. Pt is awake and responds to stimuli when suctioned. Vent is plugged into red outlet. No SOB or respiratory distress noted. Addendum: 05/25/19 at 1706 by NEGIN MUJICA RT Amended: Links added.
[2019-05-25 16:12] LABS: BASOPHILS # (AUTO) 0.1 /CMM (0.0-0.2); BASOPHILS % (AUTO) 0.4 % (0.0-2.0); HEMATOCRIT 32 % (33-45); HEMOGLOBIN 10.1 g/dL (11.5-14.8); LYMPHOCYTES # (AUTO) 0.7 /CMM (0.8-4.8); LYMPHOCYTES % (AUTO) 3.8 % (20.0-44.0); MEAN CORPUSCULAR HGB CONC 31 g/dl (31.0-36.0); MEAN CORPUSCULAR VOLUME 94 fL (82-100); MONOCYTES # (AUTO) 0.7 /CMM (0.1-1.30); MONOCYTES % (AUTO) 3.9 % (2.0-12.0); NEUTROPHILS # (AUTO) 17.1 /CMM (1.8-8.9); NEUTROPHILS % (AUTO) 91.9 % (43.0-81.0); PLATELET COUNT (AUTO) 504 /CMM (150-450); RED BLOOD CELL COUNT(AUTO) 3.43 MIL/uL (4.0-5.2); WHITE BLOOD COUNT (AUTO) 18.6 K/uL (4.3-11.0)
[2019-05-25 16:21] LABS: CALCIUM, SERUM 9.3 mg/dL (8.5-10.1); CREATININE 0.6 mg/dL (0.6-1.3); POTASSIUM 5.1 mmol/L (3.5-5.1)
[2019-05-25] MEDS ORDERED: IV NS 0.9% 1,000 ML BAG IV ONE (16:30)
[2019-05-25] MEDS ORDERED: IBUPROFEN 400 MG TABLET GT ONE (16:30)
[2019-05-25] MEDS ORDERED: VIT500LI GT (16:32)
[2019-05-25] MEDS ORDERED: ZINC1CAP2 GT (16:32)
[2019-05-25] MEDS ORDERED: IPRA3AMP23 IH ×2 (16:32)
[2019-05-25] MEDS ORDERED: MAGN400O6 GT (16:32)
[2019-05-25] MEDS ORDERED: TRAM50TA2 GT (16:32)
[2019-05-25] MEDS ORDERED: NA P133E RC (16:32)
[2019-05-25] MEDS ORDERED: MULT-447 GT (16:32)
[2019-05-25] MEDS ORDERED: NUTR1PAC14 GT (16:32)
[2019-05-25] MEDS ORDERED: NUT.237L31 GT (16:32)
[2019-05-25] MEDS ORDERED: CHLO473M5 MM (16:32)
[2019-05-25] MEDS ORDERED: VANC500F2 IV (16:32)
[2019-05-25] MEDS ORDERED: FERR300L GT (16:32)
[2019-05-25] MEDS ORDERED: BISA10SU11 RC (16:32)
[2019-05-25] MEDS ORDERED: PIPE3.3749 IV (16:32)
[2019-05-25] MEDS ORDERED: PANT40SU2 GT (16:32)
[2019-05-25] MEDS ORDERED: INSU100V3 SQ (16:32)
[2019-05-25] MEDS ORDERED: AMIN30LI2 GT (16:32)
[2019-05-25 16:35] LABS: ALBUMIN 2.1 g/dL (3.4-5.0); BILIRUBIN,DIRECT 0.1 mg/dL (0.0-0.2); BILIRUBIN,TOTAL 0.3 mg/dL (0.2-1.0); TOTAL PROTEIN, SERUM 8.3 g/dL (6.4-8.2)
[2019-05-25] MEDS ORDERED: IBUPROFEN 400 MG TABLET ONE (16:37)
--- NOTE | 2019-05-25 17:02 | NUR ---
RT Pt vent paperwork found and vent changes were made. Pt was unable to tolerate SIMV so she was placed back on AC. No SOB or respiratory distress noted. Addendum: 05/25/19 at 1706 by NEGIN MUJICA RT Amended: Links added.
[2019-05-25 17:07] LABS: APPEARANCE,URINE Slightly Cloudy (CLEAR); BILIRUBIN,URINE Negative (NEGATIVE); BLOOD, URINE Moderate Ery/uL (NEGATIVE); COLOR,URINE Yellow (YELLOW); KETONES,URINE Negative (NEGATIVE); LEUKOCYTE ESTERASE ,URINE Trace (NEGATIVE); NITRITE, URINE Negative (NEGATIVE); PROTEIN,URINE >=300 mg/dl (NEGATIVE); UGLUCOSE Negative (NEGATIVE); UROBILINOGEN,URINE 0.2 EU/dL (0.2)
[2019-05-25 17:21] LABS: BACTERIA,URINE 1+ /HPF (None Seen); SQUAMOUS EPITHELIAL CELL,UR Few /HPF (None Seen)
--- NOTE | 2019-05-25 17:29 | NUR ---
GOT BED 322-1
--- NOTE | 2019-05-25 18:00 | NUR ---
pt upgraded status to [place] per dr. hamm
[2019-05-25] MEDS ORDERED: VANCOMYCIN 1 GM in IV D5W 250 ML IV ONE (18:30)
[2019-05-25] MEDS ORDERED: CEFEPIME 1 GM in IV D5W 50 ML IV ONE (18:30)
--- NOTE | 2019-05-25 18:59 | NUR ---
CALLED [facility] FOR PICC LINE. THEY WILL BE HERE AT 2000
[2019-05-25] MEDS ORDERED: NOREPINEPHRINE 8 MG in IV D5W 500 ML IV ONE (19:00)
--- NOTE | 2019-05-25 19:03 | NUR ---
CALLED FOR ICU BED
--- NOTE | 2019-05-25 19:46 | NUR ---
DR. GALLAGHER ON THE PHONE WITH DR. VICKERS
--- NOTE | 2019-05-25 19:54 | NUR ---
BED ASSIGNMENT 250
--- NOTE | 2019-05-25 20:28 | NUR ---
report given to candy jose for shelton; pt will be transported to icu
[2019-05-25 21:41] VITALS: BP 142/101
--- NOTE | 2019-05-25 21:46 | NUR ---
pt transported to icu
[2019-05-25 22:00] VITALS: BP 149/73
[2019-05-25 22:15] VITALS: BP 132/70
[2019-05-25 22:30] VITALS: BP 129/65
[2019-05-25] MEDS ORDERED: BISACODYL SUPP (10 MG) 10 MG/SUPP.RECT SUPP.RECT RC PRN (22:30)
[2019-05-25] MEDS ORDERED: LEVALBUTEROL HCL NEB 1.25 MG/0.5 ML VIAL.NEB NEB PRN (22:30)
[2019-05-25] MEDS ORDERED: GLUCERNA 1.5 1,000 ML BOTTLE GT SCH (22:30)
[2019-05-25] MEDS ORDERED: Z GUARD REMEDY 2 OZ OINT TP PRN (22:30)
[2019-05-25] MEDS ORDERED: NA PHOS,M-B/NA PHOS,DI-BA 1 EA ENEMA RC PRN (22:30)
[2019-05-25] MEDS ORDERED: PHENYLEPHRINE 20 MG in IV D5W 250 ML IV PRN (22:30)
[2019-05-25] MEDS ORDERED: TRAMADOL HCL 50 MG TABLET GT PRN (22:30)
[2019-05-25 23:00] VITALS: BP 118/63
[2019-05-25] MEDS ORDERED: PHENYLEPHRINE 40 MG in IV D5W 250 ML IV PRN (23:00)
--- NOTE | 2019-05-25 23:02 | NUR ---
PT RCVD TRACH'D PORTEX 7 ON VENT WITH NOTED SETTINGS. ALARMS ARE SET AND AUDIBLE. EQUAL CHEST RISE NOTED. VENT PLUGGED INTO RED OUTLET. FERRY OPERATOR DONE. SUCTIONED LARGE AMOUNT OF KU THICK SECRETIONS. AMBU BAG @ BEDSIDE. WILL CONTINUE TO MONITOR THE PT T/O SHIFT.
[2019-05-25 23:15] VITALS: BP 116/59
--- NOTE | 2019-05-25 23:31 | NUR ---
MIXER OPERATOR HOT METAL. ADMISSION. PT BEING ADMITTED TO ICU FROM ER VIA [facility]. UROSEPSIS, LEVOPHED STARTED FROM ER. . TRACH TO VENT CONNECTED, PT IS NONVERBAL.PORTEX #7,AC 12,TV 500,FIO2 50%,PEEP 5. SAT 98%. NO ACUTE DISTRESS NOTED. INTERNATIONAL SALES MANAGER SHOWING S TACH, GT INTACT. CLAMPED. FC PATENT. URINE DRAINING, IV RT HAND 22G AND 20G, LT MID THIGH PICC LINE. . LEVOPHED 12MCG/MIN. HOB ELEVATED. SACRAL WOUND AND MULTIPLE REDNESS AND ABRASION NOTED
[2019-05-26] VITALS (43 sets, daily range): BP systolic 87–125; BP diastolic 46–67
[2019-05-26] MEDS ORDERED: PIPERACILLIN /TAZOBACTAM 3.375 G VIAL IV ONE ×2 (00:45→05:47)
[2019-05-26] MEDS: PIPERACILLIN /TAZOBACTAM 3.375 G in IV D5W 50 ML IV SCH ×4 (00:48→17:07)
[2019-05-26] MEDS ORDERED: IV NS 0.9% 250 ML IV PRN (01:00)
--- NOTE | 2019-05-26 01:05 | NUR ---
TROUBLE DISPATCHER. [id number] CALLED FOR ABDOMEN X RAY RESULT. PT HAS SMALL BOWEL OBSTRUCTION. NOTIFIED MD VICKERS. ORDERED CT ABDOMEN AND PELVIC.
--- NOTE | 2019-05-26 03:09 | NUR ---
EARLY EDUCATION TEACHER. AM CARE, ORAL CARE, BED BATH GIVEN. LINEN CHANGED. REMAINING SAME VENT SETTING TOLERATED WELL. SAT 98%NO ACUTE DISTRESS NOTED. ICT BUSINESS ANALYST SHOWING S TACH. IV LT THIGH PICC LINE. GT INTACT. FC PATENT. TURN ANS REPOSITION Q2H/ WILL CONTINUE TO MONITOR VITALS.
[2019-05-26 05:06] LABS: BASOPHILS % (AUTO) 0.3 % (0.0-2.0); EOSINOPHILS % (AUTO) 0.1 % (0.0-6.0); HEMATOCRIT 26 % (33-45); HEMOGLOBIN 8.5 g/dL (11.5-14.8); LYMPHOCYTES # (AUTO) 0.6 /CMM (0.8-4.8); LYMPHOCYTES % (AUTO) 6.3 % (20.0-44.0); MEAN CORPUSCULAR HGB CONC 32 g/dl (31.0-36.0); MEAN CORPUSCULAR VOLUME 93 fL (82-100); MONOCYTES # (AUTO) 0.4 /CMM (0.1-1.30); NEUTROPHILS % (AUTO) 89.3 % (43.0-81.0); PLATELET COUNT (AUTO) 335 /CMM (150-450); RED BLOOD CELL COUNT(AUTO) 2.84 MIL/uL (4.0-5.2); WHITE BLOOD COUNT (AUTO) 8.9 K/uL (4.3-11.0)
[2019-05-26 05:09] LABS: ALBUMIN 1.6 g/dL (3.4-5.0); BILIRUBIN,TOTAL 0.3 mg/dL (0.2-1.0); CALCIUM, SERUM 8.3 mg/dL (8.5-10.1); CREATININE 0.4 mg/dL (0.6-1.3); MAGNESIUM 2.4 mg/dL (1.8-2.4); PHOSPHORUS 2.5 mg/dL (2.5-4.9); POTASSIUM 3.9 mmol/L (3.5-5.1); TOTAL PROTEIN, SERUM 6.4 g/dL (6.4-8.2)
--- NOTE | 2019-05-26 06:04 | NUR ---
PORCELAIN TURNER. AM CARE. ORA; CARE, BED BATH GIVEN. LINEN CHANGED, REMAINING SAME VENT SETTING TOLERATED WELL. ST 98%. NO ACUTE DISTRESS NOTED. DELIVERY ARCHITECT SHOWING S TACH. IV LT MID THIGH PICC LINE TKO RUNNING, FC PATENT. URINE DRAINING. TEMPERATURE 100. COOLING MEASURE PLACED. WILL CONTINUE TO MONITOR VITALS.
--- NOTE | 2019-05-26 07:10 | NUR ---
RN INITIAL NOTES RECEIVED PT OPENS EYES ON STIMULI, WITHDRAWS TO PAIN. ON TRACH, ON VENT. NO RESPIRATORY DISTRESS. NO SOB NOTED. NO SIGNS OF PAIN NOTED. HOB ELEVATED. PT SINUS TACH ON MONITOR. LEFT MID THIGH MIDLINE IN PLACE. FC IN PLACE. NO HEMATURIA NOTED. WILL CLOSELY MONITOR BP. FOR WOUND CONSULT.
[2019-05-26] MEDS ORDERED: FEE PK DOSING 1 MIN EA MC ONE (07:51)
[2019-05-26] MEDS ORDERED: VANCOMYCIN 500 MG in IV D5W 100 ML IV SCH (08:00)
--- NOTE | 2019-05-26 08:09 | NUR ---
WOUND CARE CONSULT: PT FOLLOWED BY PLASTIC SURGERY AND PODIATRY TEAMS FOR WOUNDS. DEFER TO SURGICAL TEAMS FOR WOUND TREATMENT PLAN. FIRST STEP LOW AIRLOSS MATTRESS ON ORDER. ALL SKIN PROTECTION MEASURES IN PLACE AND REVIEWED WITH NURSING STAFF. WILL SEE PRN. CURRENT ITALO SCORE IS 9.
[2019-05-26] MEDS: IV D5/ 0.9% NACL 1,000 ML IV PRN (08:21)
[2019-05-26] MEDS: VANCOMYCIN 0.75 GM in IV D5W 250 ML IV SCH ×2 (08:21→19:58)
--- NOTE | 2019-05-26 08:30 | NUR ---
RN NOTES SEEN AND EXAMINED BY MARY JANE ZIMMERMAN NP. PT HAS TRACH, ON VENT. NO RESPIRATORY DISTRESS NOTED. NO SOB NOTED. PT A/OX1. AFEBRILE AT THIS TIME. BLOOD CULTURE PENDING. FOR ID CONSULT. WILL MONITOR
[2019-05-26] MEDS ORDERED: FERROUS SULFATE UDC 300 MG/5 ML UDC GT SCH (09:00)
[2019-05-26] MEDS ORDERED: ZINC SULFATE 220 MG CAPSULE GT SCH (09:00)
[2019-05-26] MEDS ORDERED: MULTIVIT W/MINERALS 1 TAB TABLET GT SCH (09:00)
[2019-05-26] MEDS ORDERED: ARGININE/GLUTAMINE/CALCIUM BMB 1 EACH POWD.PACK GT SCH (09:00)
[2019-05-26] MEDS ORDERED: PANTOPRAZOLE 40 MG/PACK PACK GT SCH (09:00)
[2019-05-26] MEDS ORDERED: PROSTAT (PYXIS) 30 ML UDC GT SCH (09:00)
[2019-05-26] MEDS ORDERED: ASCORBIC ACID SYRUP 500 MG/5 ML UDC GT SCH (09:00)
[2019-05-26] MEDS: HYDROGEL DRESSING 90 GM TUBE TP SCH (12:34)
[2019-05-26] MEDS ORDERED: ALBUTEROL HALF STRENGTH 1.25 MG/3 ML VIAL.NEB NEB PRN (13:30)
--- NOTE | 2019-05-26 17:17 | NUR ---
RT NOTE `PT RCVD TRACH'D PORTEX 7 ON VENT WITH NOTED SETTINGS. ALARMS ARE SET AND AUDIBLE. EQUAL CHEST RISE NOTED. VENT PLUGGED INTO RED OUTLET. FORMING MACHINE UPKEEP MECHANIC HELPER DONE. SUCTIONED LARGE AMOUNT OF KU THICK SECRETIONS. AMBU BAG @ BEDSIDE. WILL CONTINUE TO MONITOR THE PT T/O SHIFT.
--- NOTE | 2019-05-26 18:29 | NUR ---
RN CLOSING NOTES NO SIGNIFICANT CHANGE NOTED. NO RESPIRATORY DISTRESS NOTED. NO SOB NOTED. DENIES ANY PAIN. IVF INFUSING. TX PROVIDED ORDERED. KEPT CLEAN AND DRY. KEPT COMFORTABLE. WILL ENDORSE FOR CONTINUITY OF CARE.
--- NOTE | 2019-05-26 19:30 | NUR ---
GUIDANCE COUNSELOR NOTE RECEIVED PT AWAKE AND ALERT TO NAME. ABLE TO MOUTH SOME WORDS. ON MECH VENT WITH SETTINGS WELL TOLERATED AND SATURATING WELL. HOB ELEVATED AND ON ASPIRATION PRECAUTIONS. TELE-ST. GT CLAMPED AT THIS TIME PER MD ORDERS. IV FLUIDS INFUSING. BERGER CATHETER IN PLACE AND DRAINING BY GRAVITY. WILL MONITOR.
[2019-05-26 22:33] LABS: HEMOGLOBIN 7.1 g/dL (11.5-14.8)
[2019-05-27] VITALS (21 sets, daily range): BP systolic 97–140; BP diastolic 47–79
[2019-05-27] MEDS: PIPERACILLIN /TAZOBACTAM 3.375 G in IV D5W 50 ML IV SCH ×4 (00:23→17:44)
[2019-05-27 04:47] LABS: BASOPHILS % (AUTO) 0.4 % (0.0-2.0); EOSINOPHILS % (AUTO) 0.4 % (0.0-6.0); LYMPHOCYTES # (AUTO) 0.4 /CMM (0.8-4.8); LYMPHOCYTES % (AUTO) 7.3 % (20.0-44.0); MEAN CORPUSCULAR HGB CONC 33 g/dl (31.0-36.0); MEAN CORPUSCULAR VOLUME 95 fL (82-100); MONOCYTES # (AUTO) 0.5 /CMM (0.1-1.30); MONOCYTES % (AUTO) 7.8 % (2.0-12.0); NEUTROPHILS # (AUTO) 4.9 /CMM (1.8-8.9); NEUTROPHILS % (AUTO) 84.1 % (43.0-81.0); PLATELET COUNT (AUTO) 277 /CMM (150-450); RED BLOOD CELL COUNT(AUTO) 2.05 MIL/uL (4.0-5.2); WHITE BLOOD COUNT (AUTO) 5.8 K/uL (4.3-11.0)
[2019-05-27 04:54] LABS: CALCIUM, SERUM 8.6 mg/dL (8.5-10.1); CREATININE 0.4 mg/dL (0.6-1.3); POTASSIUM 3.2 mmol/L (3.5-5.1)
[2019-05-27 05:00] LABS: HEMATOCRIT 19 % (33-45)
[2019-05-27 05:02] LABS: HEMOGLOBIN 6.3 g/dL (11.5-14.8)
--- NOTE | 2019-05-27 06:00 | NUR ---
BURR FILER NOTE NOTIFIED LONGWALL HEADGATE OPERATOR DR. VICKERS OF CRITICAL VALUE FOR H/H 6.07/12 WITH NEW ORDER TO TRANSFUSE 1 UNIT PRBC. LEFT MESSAGE WITH RAZ LUNA FOR CONSENT OF BLOOD TRANSFUSION. WILL TRY AGAIN.
[2019-05-27] MEDS: IV D5/ 0.9% NACL 1,000 ML IV PRN (06:04)
--- NOTE | 2019-05-27 06:50 | NUR ---
SOLUTIONS SALES EXECUTIVE NOTE NO ACUTE DISTRESS NOTED DURING SHIFT. VENT SETTINGS WELL TOLERATED AND SUCTIONED NEEDED. REMAINED AFEBRILE. REPOSITIONED Q2H. KEPT CLEAN AND DRY. KCI MATTRESS DELIVERED. WILL ENDORSE TO NEXT SHIFT FOR CONTINUITY OF CARE.
--- NOTE | 2019-05-27 07:15 | NUR ---
RN INITIAL NOTES RECEIVED PT ASLEEP, EASILY AROUSABLE. PT A/OX1, FOLLOW SIMPLE COMMANDS. TRACH IN PLACE. ON VENT. NO RESPIRATORY DISTRESS NOTED. NO SOB NOTED. NO SIGNS OF PAIN NOTED. IVF INFUSING. FC IN PLACE. NO HEMATURIA NOTED. FOR BLOOD TRANSFUSION. WILL CLOSELY MONITOR
[2019-05-27] MEDS: VANCOMYCIN 0.75 GM in IV D5W 250 ML IV SCH ×2 (08:11→20:45)
[2019-05-27] MEDS: HYDROGEL DRESSING 90 GM TUBE TP SCH (08:12)
[2019-05-27] MEDS: POTASSIUM CL. PREMIX PERIPHER. 50 ML IV SCH ×4 (09:33→12:56)
--- NOTE | 2019-05-27 09:54 | NUR ---
RN NOTES 0830 CALLED RAZ BALLESTEROS (#[phone]) FOR TELEPHONE CONSENT FOR BLOOD TRANSFUSION. LEFT A MESSAGE. 0945 SEEN AND EXAMINED BY MARY JANE ZIMMERMAN NP. AWARE OF LAB VALUES: HGB 6.3, HCT 19. NO SIGNS OF ACTIVE BLEEDING NOTED. HAS ORDER FOR 1 UNIT PRBC. AWAITING CONSENT FROM RAZ LUNA. 0950 CALLED RAZ BALLESTEROS (DPOA) AT [phone]. LEFT A MESSAGE. AWAITING CALL BACK
[2019-05-27] MEDS: SUCRALFATE 1 G TABLET PO SCH ×4 (10:19→21:37)
[2019-05-27] MEDS: PANTOPRAZOLE 40 MG VIAL IV SCH ×2 (10:19→20:05)
--- NOTE | 2019-05-27 10:50 | NUR ---
RN NOTES PT TRANSFERRED TO ROOM 102. PT A/OX1, ON VENT. NO RESPIRATORY DISTRESS NOTED. NO SOB NOTED. NO SIGNS OF PAIN NOTED. HERNANDEZ WAY TOOK OVER PT'S CARE. TRANSFERRED IN STABLE CONDITION
--- NOTE | 2019-05-27 11:06 | NUR ---
pt. transferred from 250 to 102. use same [facility] vent with same parameters. vent connected to red outlet with ambubag @ bedside. Addendum: 05/27/19 at 1108 by ELISA RUIZ RT Amended: Links added.
--- NOTE | 2019-05-27 11:10 | NUR ---
WENDI RN NOTES: PATIENT IN BED, OPENS EYES, ABLE TO MOUTH WORDS.ON TRACH - PORTEX 7 TO MECHANICAL VENT SETTING ORDERED AC 12 TV 500 FIO2 50% PEEP 5, BREATHING IS EVEN AND UNLABORED. SINUS RHYTHM HR 83, NO S/S OF PAIN. NO FACIAL GRIMACING. RT HAND G 20 RAC G20 BOTH FLUSHES WELL, SITE CLEAR. WITH LEFT THIGH PICC LINE, D5NS AT 60 ML/HR ONGOING, CDI DRESSING. BERGER CATH IN PLACE, DRAINING YELLOW CLOUDY URINE, ADEQUATE AMOUNT. HOB ELEVATED. G TUBE CLAMPED, PT NPO, SEE NURSING NOTES FOR SKIN ISSUES. WILL TURN AND REPOSITION Q 2 HOURS. OFF LOAD BILAT HEEL. KEPT CLEAN AND DRY. CALL LIGHT PLACED WITHIN REACH. WILL CONT. TO MONITOR. PATIENT FOR BLOOD TRANSFUSION, DPOA NOT ANSWERING. PER ICU NURSE PLACED 2 CALLS.
--- NOTE | 2019-05-27 11:25 | NUR ---
RN NOTES PLACED A CALL TO RAZ BALLESTEROS [phone] TO GET CONSENT FOR BLOOD TRANSFUSION. VOICEMAIL. LEFT MESSAGE.
--- NOTE | 2019-05-27 12:01 | NUR ---
RN NOTES ANOTHER CALL PLACED TO MS RAZ BALLESTEROS FOR BLOOD TRANSFUSION CONSENT.STILL VOICEMAIL. MESSAGE LEFT.
--- NOTE | 2019-05-27 12:30 | NUR ---
RN NOTES ABLE TO GET 2 DOCTORS SIGNATURE FOR BLOOD CONSENT. WILL TRANSFUSE 1 UNIT PRBC ORDERED.
--- NOTE | 2019-05-27 15:35 | NUR ---
RN NOTES STARTED 1 UNIT PRBC
--- NOTE | 2019-05-27 17:20 | NUR ---
RN NOTES 1 UNIT PRBC GIVEN. NO ADVERSE REACTION NOTED
[2019-05-27 17:34] LABS: OCCULT BLOOD STOOL NEGATIVE (NEGATIVE)
--- NOTE | 2019-05-27 18:59 | NUR ---
GARMENT PARTS CUTTER MACHINE NOTES: PATIENT IN BED, OPENS EYES, ABLE TO MOUTH WORDS.ON TRACH - PORTEX 7 TO MECHANICAL VENT SETTING ORDERED AC 12 TV 500 FIO2 50% PEEP 5, BREATHING IS EVEN AND UNLABORED. SINUS RHYTHM HR 83, NO S/S OF PAIN. NO FACIAL GRIMACING. RT HAND G 20 RAC G20 BOTH FLUSHES WELL, SITE CLEAR. WITH LEFT THIGH PICC LINE, D5NS AT 60 ML/HR ONGOING, CDI DRESSING. BERGER CATH IN PLACE, DRAINING YELLOW CLOUDY URINE, ADEQUATE AMOUNT. 235 ML OUTPUT. HOB ELEVATED. G TUBE CLAMPED, PT NPO, PM CARE DONE EARLIER,TURNED AND REPOSITIONED Q 2 HOURS. OFF LOAD BILAT HEEL. KEPT CLEAN AND DRY. CALL LIGHT PLACED WITHIN REACH. ALL NEEDS MET AT THIS TIME. WILL ENDORSE TO NEXT SHIFT FOR ELOY.
--- NOTE | 2019-05-27 19:10 | NUR ---
RN OPENING NOTE RECEIVED PATIENT IN BED WITH HOB ELEVATED. RESTING. OBTUNDED. ON VENT. GTF CLAMPED. ON IV HYDRATION. IN NO APPARENT DISTRESS NOTED. CALL LIGHT WITHIN REACH. WILL CONTINUE TO MONITOR.
[2019-05-27 19:23] LABS: HEMOGLOBIN 8.6 g/dL (11.5-14.8)
[2019-05-28] VITALS (7 sets, daily range): BP systolic 118–159; BP diastolic 66–83
[2019-05-28] MEDS: PIPERACILLIN /TAZOBACTAM 3.375 G in IV D5W 50 ML IV SCH ×4 (00:29→17:52)
[2019-05-28 06:53] LABS: BASOPHILS % (AUTO) 0.2 % (0.0-2.0); EOSINOPHILS % (AUTO) 1.3 % (0.0-6.0); HEMATOCRIT 28 % (33-45); HEMOGLOBIN 9.3 g/dL (11.5-14.8); LYMPHOCYTES # (AUTO) 0.6 /CMM (0.8-4.8); LYMPHOCYTES % (AUTO) 9.9 % (20.0-44.0); MEAN CORPUSCULAR HGB CONC 33 g/dl (31.0-36.0); MEAN CORPUSCULAR VOLUME 93 fL (82-100); MONOCYTES # (AUTO) 0.4 /CMM (0.1-1.30); MONOCYTES % (AUTO) 6.5 % (2.0-12.0); NEUTROPHILS # (AUTO) 4.8 /CMM (1.8-8.9); NEUTROPHILS % (AUTO) 82.1 % (43.0-81.0); PLATELET COUNT (AUTO) 264 /CMM (150-450); RED BLOOD CELL COUNT(AUTO) 3.05 MIL/uL (4.0-5.2); WHITE BLOOD COUNT (AUTO) 5.9 K/uL (4.3-11.0)
--- NOTE | 2019-05-28 06:55 | NUR ---
RN CLOSING NOTE PATIENT IS IN BED RESTING WITH HOB ELEVATED AT THIS TIME. A&O. ABLE TO MAKE NEEDS KNOWN BY NODDING HEAD. IN NO APPARENT DISTRESS NOTED AT THIS TIME. ON VENT. GTF CLAMPED. IV HYDRATION RUNNING AND TOLERATED WELL. PATIENT IS KEPT CLEAN, DRY, AND COMFORTABLE. DUE MEDS GIVEN AND TOLERATED WELL. CALL LIGHT IS WITHIN EASY REACH. WILL ENDORSE TO AM SHIFT RN.
--- NOTE | 2019-05-28 07:20 | NUR ---
TELE WENDI RN NOTES: PATIENT RECEIVED IN BED IN NO ACUTE SIGNS OF DISTRESS. HOB ELEVATED. OPENS EYES, ABLE TO MOUTH WORDS. ON TRACH - PORTEX 7 TO MECHANICAL VENT SETTING ORDERED, TOLERATING SETTINGS WELL WITH NO SOB NOTED. TELEMONITORING SHOWS SINUS RHYTHM HR 78 AT THIS TIME. NO S/S OF PAIN AND NO FACIAL GRIMACING NOTED AT THIS TIME. IV ACCESS ON RAC G#20 AND LEFT THIGH PICC LINE BOTH INTACT AND PATENT.IVF OF D5NS AT 60 ML/HR INFUSING TO LEFT THIGH PICC. BERGER CATH IN PLACE, DRAINING YELLOW CLOUDY URINE VIA GRAVITY. G TUBE IN PLACE AND CLAMPED, PT IS NPO ORDERED. WILL TURN AND REPOSITION Q 2 HOURS. OFF LOAD BILATERAL HEELS. BED IN LOWEST LOCKED POSITION WITH SR UP X3. CALL LIGHT WITHIN REACH. WILL CONTINUE TO MONITOR.
[2019-05-28 07:27] LABS: CALCIUM, SERUM 8.1 mg/dL (8.5-10.1); CREATININE 0.4 mg/dL (0.6-1.3); POTASSIUM 3.3 mmol/L (3.5-5.1)
[2019-05-28] MEDS: SUCRALFATE 1 G TABLET PO SCH ×4 (07:30→21:06)
[2019-05-28] MEDS: VANCOMYCIN 0.75 GM in IV D5W 250 ML IV SCH ×2 (07:42→20:19)
[2019-05-28] MEDS: PANTOPRAZOLE 40 MG VIAL IV SCH ×2 (08:14→21:06)
[2019-05-28] MEDS: HYDROGEL DRESSING 90 GM TUBE TP SCH (08:20)
[2019-05-28] MEDS: IV D5/ 0.9% NACL 1,000 ML IV PRN (09:57)
[2019-05-28] MEDS: POTASSIUM CL. PREMIX PERIPHER. 50 ML IV SCH ×2 (11:19→12:24)
--- NOTE | 2019-05-28 11:24 | NUR ---
PATIENT HAD K+ LEVELS OF 3.3 TODAY. ORDERS FOR KCL 10MEQ X2 BAGS VIA IV ORDERED AND CURRENTLY DOSING.
[2019-05-28] MEDS: GLUCERNA 1.2 1,000 ML BOTTLE NG PRN (12:59)
--- NOTE | 2019-05-28 18:30 | NUR ---
TOBACCO WRAPPING MACHINE TENDER CLOSING NOTES: PATIENT IN BED LYING AT MODERATE HIGH BACKREST POSITION. A/O X1. OPENS EYES AND ABLE TO MOUTH WORDS. ON TRACH PORTEX 7 TO MECHANICAL VENT SETTING ORDERED, TOLERATING SETTINGS WELL WITH NO ACUTE RESPIRATORY DISTRESS NOTED THROUGHOUT THE DAY. TELEMONITORING SHOWS SINUS RHYTHM HR ON THE 70'S, NO CARDIAC DISTRESS NOTED. IV ACCESS ON RFA G#20, RIGHT HAND G#20 AND LEFT THIGH PICC LINE ALL INTACT AND PATENT. IVF OF D5 NS @ 60 ML/HR INFUSING TO LEFT THIGH PICC. BERGER CATH IN PLACE, DRAINING YELLOW CLOUDY URINE VIA GRAVITY, BERGER CARE DONE. G-TUBE IN PLACE WITH GTF OF GLUCERNA 1.2 @ 65MLHR,TOLERATING WELL. ASPIRATION PRECAUTIONS MAINTAINED. TURNED AND REPOSITIONED Q 2 HOURS AND PRN. B/L HEELS OFFLOADED WITH PILLOWS. BED IN LOWEST LOCKED POSITION WITH SR UP X3. CALL LIGHT WITHIN REACH. ALL NEEDS NAD CARE PROVIDED WELL. WILL ENDORSE TO ASSISTANT STORE MANAGER OPERATIONS NURSE FOR ELOY.
--- NOTE | 2019-05-28 19:34 | NUR ---
MECHANICAL SYSTEMS DESIGN ENGINEER OPENING NOTES: RECEIVED PT LAYING IN BED IN SEMI ADAMSON'S POSITION ON TRACH, VENTILATING WELL. NO ACUTE RESPIRATORY DISTRESS NOTED. ON TELE MONITOR SHOWING SR. PT INCONTINENT, W/ BERGER IN PLACE, DRAINING. PT HAS IV SITE ON RFA #20, R HAND #20 AND L THIGH PICC LINE, ALL FLUSHED AND PATENT. PT HAS D5 NS RUNNING AT 60 ML/HR. ON GT FEEDING OF GLUCERNA 1.2 AT 65 ML/HR, TOLERATING WELL. SAFETY MEASURES INCORPORATED AND CALL LIGHT WITHIN REACH. WILL CONTINUE TO MONITOR.
[2019-05-29] VITALS: BP 126/72
[2019-05-29] MEDS: PIPERACILLIN /TAZOBACTAM 3.375 G in IV D5W 50 ML IV SCH ×4 (00:22→17:32)
[2019-05-29 04:00] VITALS: BP 126/81
[2019-05-29 05:44] LABS: BASOPHILS % (AUTO) 0.5 % (0.0-2.0); EOSINOPHILS % (AUTO) 1.9 % (0.0-6.0); HEMATOCRIT 29 % (33-45); HEMOGLOBIN 9.4 g/dL (11.5-14.8); LYMPHOCYTES # (AUTO) 0.5 /CMM (0.8-4.8); LYMPHOCYTES % (AUTO) 7.8 % (20.0-44.0); MEAN CORPUSCULAR HGB CONC 32 g/dl (31.0-36.0); MEAN CORPUSCULAR VOLUME 92 fL (82-100); MONOCYTES # (AUTO) 0.5 /CMM (0.1-1.30); MONOCYTES % (AUTO) 6.9 % (2.0-12.0); NEUTROPHILS # (AUTO) 5.7 /CMM (1.8-8.9); NEUTROPHILS % (AUTO) 82.9 % (43.0-81.0); PLATELET COUNT (AUTO) 291 /CMM (150-450); RED BLOOD CELL COUNT(AUTO) 3.16 MIL/uL (4.0-5.2); WHITE BLOOD COUNT (AUTO) 6.9 K/uL (4.3-11.0)
[2019-05-29 06:16] LABS: CALCIUM, SERUM 7.3 mg/dL (8.5-10.1); CREATININE 0.3 mg/dL (0.6-1.3); POTASSIUM 3.7 mmol/L (3.5-5.1)
--- NOTE | 2019-05-29 06:54 | NUR ---
MARKETING ANALYST CLOSING NOTES: PT LAYING IN BED A&OX1. ON TRACH PORTEX 7 ON MECHANICAL VENTILATION ORDERED.TOLERATING SETTINGS WELL. ON TELE MONITOR SHOWING SINUS RHYTHM. NO ACUTE RESPIRATORY DISTRESS DURING SHIFT. ALL IV SITES PATENT AND DRAINING. BERGER CATH IN PLACE, PATENT AND DRAINING YELLOW URINE. PT HAS LABS IN AM, ORDERS TO CONTINUE IV ATB AND RD F/U. SAFETY MEASURES IN PLACE, CALL LIGHT WITHIN REACH. WILL ENDORSE TO AM RN FOR ELOY.
--- NOTE | 2019-05-29 07:00 | NUR ---
RN INITIAL NOTE PATIENT IN BED, ASLEEP BUT EASILY AROUSABLE TO TOUCH AND NAME. PATIENT IS NON VERBAL BUT FOLLOWS COMMANDS AND NODS. ON VENT, SATING WELL AT 100%. ON TELE MONITOR, SR AT 80s. NO SIGNS OF ANY DISTRESS AT THIS TIME. HAS A BERGER CATH DRAINING TO GRAVITY WITH CLEAR AND YELLOW URINE. HAS GT WITH GLUCERNA 1.2 AT 65 ML/HR X20HRS. HAS A RIGHT FA #20, RIGHT HAND #20 AND LEFT FEMORAL PICC LINE WITH D5NS AT 60 ML/HR. BED LOCKED AND IN LOWEST POSITION. WILL CONTINUE TO MONITOR Addendum: 05/29/19 at 09 by SAMUEL GERONIMO RN RIGHT MID THIGH CENTRAL PICC LINE Addendum: 05/29/19 at 0903 by SAMUEL GERONIMO RN LEFT
[2019-05-29] MEDS: SUCRALFATE 1 G TABLET PO SCH ×3 (07:44→16:36)
[2019-05-29] MEDS: IV D5/ 0.9% NACL 1,000 ML IV PRN (07:52)
[2019-05-29 08:00] VITALS: BP 136/67
--- NOTE | 2019-05-29 08:00 | NUR ---
RT Pt received trached on mechanical ventilation with noted settings. Pt is awake and alert. Vent is plugged into red outlet. No SOB or respiratory distress noted. Addendum: 05/29/19 at 1812 by NEGIN MUJICA RT Amended: Links added.
[2019-05-29] MEDS: VANCOMYCIN 0.75 GM in IV D5W 250 ML IV SCH (08:01)
[2019-05-29] MEDS: PANTOPRAZOLE 40 MG VIAL IV SCH (08:42)
[2019-05-29] MEDS: HYDROGEL DRESSING 90 GM TUBE TP SCH (08:43)
[2019-05-29] MEDS: GLUCERNA 1.2 1,000 ML BOTTLE NG PRN (09:46)
[2019-05-29 12:00] VITALS: BP 138/74
[2019-05-29] MEDS ORDERED: VANC1PLA9 IV (12:56)
[2019-05-29] MEDS ORDERED: PIPE3.379 IV (12:56)
--- NOTE | 2019-05-29 14:51 | NUR ---
HERNANDEZ NOTE CALLED [facility] TO GIVE REPORT, UNFORTUNATELY THEY ARE IN A MEETING. MOISÉS ADAME PHONE NUMBER WAS GIVEN TO GIVE REPORT LATER AFTER THE MEETING. TALKED TO KIMO. Addendum: 05/29/19 at 1453 by SAMUEL GERONIMO RN RECEIVED A CALL FROM THE PATIENT'S DPOA, AWARE THAT PATIENT WILL BE DISCHARGED BACK TO [facility] TODAY Addendum: 05/29/19 at 1846 by SAMUEL GERONIMO RN REPORT GIVEN TO HERNANDEZ SCHMITZ
[2019-05-29 16:00] VITALS: BP 135/71
--- NOTE | 2019-05-29 18:46 | NUR ---
RN CLOSING NOTE PATIENT IN BED, AWAKE AND ALERT. NO COMPLAINS OF ANY PAIN NOR SOB AT THIS TIME. ALL MEDS GIVEN. ALL NEEDS MET. REPOSITIONED PER PROTOCOL. WOUND CARE TREATMENT ORDERED. PATIENT WAREHOUSE STOCKER TIME AT 1930. WILL ENDORSE TO NOC SHIFT FOR ELOY
--- NOTE | 2019-05-29 19:58 | NUR ---
DIE MAKER TRIM OPENING NOTES: RECEIVED PT IN BED ON TRACH AND MECHANICAL VENTILATION PORTEX 7. NO ACUTE RESPIRATORY DISTRESS NOTED. A&OX1. INCONTINENT W/ BERGER IN PLACE DRAINING. HAS IV SITES ON RIGHT FA AND LEFT MID THIGH PICC W/ D5NS RUNNING AT 60ML/HR. ON GT FEEDING GLUCERNA 1.2 RUNNING AT 65ML/HR. PER AM RN, PT IS READY TO BE DC'D BACK TO [facility]. AWAITING EMT PICKUP. SAFETY MEASURES IN PLACE, CALL LIGHT WITHIN REACH. WILL CONTINUE TO MONITOR.
[2019-05-29 20:00] VITALS: BP_SYST 133; BP_SYST 135; BP_DIAS 75
--- NOTE | 2019-05-29 21:20 | NUR ---
TE[facility]ISTS CLOSING NOTE: ENSURED PT WAS CLEAN AND READY FOR TRANSFER. D/'C'D IV FLUID AND GT FEEDING, FLUSHED ALL LINES. PT D/C'D TO EMT PERSONNEL IN STABLE CONDITION. REPORT GIVEN TO EMT STAFF. NO ACUTE DISTRESS NOTED. PT LEFT FACILITY AT 2120 IN STABLE CONDITION.
[2019-06-12] MEDS ORDERED: DOXY100T2 GT (12:01)
[2019-06-12] MEDS ORDERED: FLUC100T8 PO (12:01)
[2019-06-12] MEDS ORDERED: LEVO500T2 GT (12:01)
[2019-07-12] MEDS ORDERED: MERO1VIA23 IV (10:06)
== END 2019-05-29 21:20 | DRG 853 ==
LOC: ER 15:53 → TELE 18:08 → ICU 21:03 → TELE-TD 05-27 10:50 → TELE1 05-27 15:44
PROVIDERS: ADMIT Internal Medicine; ATTEND Nurse Practitioner Acute Care
DX: A41.9 Sepsis, unspecified organism (principal); L89.154 Pressure ulcer of sacral region, stage 4; J69.0 Pneumonitis due to inhalation of food and vomit; E43 Unspecified severe protein-calorie malnutrition; R65.21 Severe sepsis with septic shock; G92 Toxic encephalopathy; Z99.11 Dependence on respirator [ventilator] status; Z68.1 Body mass index [BMI] 19.9 or less, adult; R64 Cachexia; B37.49 Other urogenital candidiasis; K56.0 Paralytic ileus; D68.59 Other primary thrombophilia; J96.11 Chronic respiratory failure with hypoxia; J90 Pleural effusion, not elsewhere classified; Z93.1 Gastrostomy status; Z91.81 History of falling; Z87.440 Personal history of urinary (tract) infections; R62.7 Adult failure to thrive; R13.10 Dysphagia, unspecified; D63.8 Anemia in other chronic diseases classified elsewhere; E86.0 Dehydration; D47.3 Essential (hemorrhagic) thrombocythemia; I10 Essential (primary) hypertension; E11.621 Type 2 diabetes mellitus with foot ulcer; L97.519 Non-pressure chronic ulcer of other part of right foot with unspecified severity; F03.90 Unspecified dementia, unspecified severity, without behavioral disturbance, psychotic disturbance, mood disturbance, and anxiety; M06.9 Rheumatoid arthritis, unspecified; M19.90 Unspecified osteoarthritis, unspecified site; K57.30 Diverticulosis of large intestine without perforation or abscess without bleeding; K44.9 Diaphragmatic hernia without obstruction or gangrene; Z74.01 Bed confinement status; Z93.0 Tracheostomy status; I70.90 Unspecified atherosclerosis; K80.20 Calculus of gallbladder without cholecystitis without obstruction; M48.54XS Collapsed vertebra, not elsewhere classified, thoracic region, sequela of fracture; M48.04 Spinal stenosis, thoracic region; L98.8 Other specified disorders of the skin and subcutaneous tissue; M24.521 Contracture, right elbow; M24.542 Contracture, left hand; M24.541 Contracture, right hand; M24.522 Contracture, left elbow; M20.41 Other hammer toe(s) (acquired), right foot; M20.42 Other hammer toe(s) (acquired), left foot; M62.562 Muscle wasting and atrophy, not elsewhere classified, left lower leg; M62.561 Muscle wasting and atrophy, not elsewhere classified, right lower leg; D72.829 Elevated white blood cell count, unspecified
CPT/HCPCS: 31720; 36415; 36569; 71045-TC; 74018; 80048-TC; 80053-TC; 80076-TC; 80202-TC; 81000-TC; 82272-TC; 83605-TC; 83735-TC; 83880; 84100-TC; 84484-TC; 85025-TC; 85027-TC; 85730-TC; 86850-TC; 86921-TC; 87040-TC; 87070-TC; 87081-TC; 87086-TC; 94003-TC; 94760-TC; 94762-TC; 99082-TC; A6248; A6403; A7526; C1751; C9113; G0378; J0692; J2543; J3370; J3480; J3490; J7030; J7040; J7042; J7050; J7060; P9016-BL

== ENCOUNTER 2019-06-04 02:01 | Inpatient (IN) | payer MEDICARE, MEDICAID ==
[~2019-06-04] VITALS: Ht 165.1 cm; Wt 39.9 kg
[~2019-06-04 02:01] MED LIST changes: +AMIN30LI2 GT; +BISA10SU11 RC; +CHLO473M5 MM; +FERR300L GT; +INSU100V3 SQ; +IPRA3AMP23 IH; +MAGN400O6 GT; +MULT-447 GT; +NA P133E RC; +NUT.237L31 GT; +NUTR1PAC14 GT; +PANT40SU2 GT; -PANT40TA2 PO; +PIPE3.379 IV; -SUCR1TAB31 PO; +TRAM50TA2 GT; +VANC1PLA9 IV; +VIT500LI GT; +ZINC1CAP2 GT
--- NOTE | 2019-06-04 02:02 | NUR ---
RT NOTES PT RECEIVED TRACHED W/ PORTEX 7 VENTILATED W/ AMBUBAG BY EMR ANALYST. PLACED PT ON [facility] VENT ON ORDERED SETTINGS AC, 12, 500, 40%, +5. AIRWAY PATENT AND SECURED. PT SUCTIONED. ALARMS SET AND AUDIBLE. AMBUBAG AT BEDSIDE. VENT CONNECTED TO RED OUTLET. WILL CONT TO MONITOR. Addendum: 06/04/19 at 0250 by HOWIE MARQUEZ RT Amended: Links added.
[2019-06-04 02:39] LABS: BASOPHILS % (AUTO) 0.1 % (0.0-2.0); HEMATOCRIT 33 % (33-45); HEMOGLOBIN 10.3 g/dL (11.5-14.8); LYMPHOCYTES # (AUTO) 0.2 /CMM (0.8-4.8); MEAN CORPUSCULAR HGB CONC 32 g/dl (31.0-36.0); MEAN CORPUSCULAR VOLUME 93 fL (82-100); MONOCYTES # (AUTO) 0.8 /CMM (0.1-1.30); MONOCYTES % (AUTO) 4.4 % (2.0-12.0); NEUTROPHILS # (AUTO) 17.9 /CMM (1.8-8.9); NEUTROPHILS % (AUTO) 94.5 % (43.0-81.0); PLATELET COUNT (AUTO) 339 /CMM (150-450); RED BLOOD CELL COUNT(AUTO) 3.49 MIL/uL (4.0-5.2)
[2019-06-04 02:50] LABS: CALCIUM, SERUM 9.5 mg/dL (8.5-10.1); CREATININE 0.5 mg/dL (0.6-1.3); POTASSIUM 4.7 mmol/L (3.5-5.1)
[2019-06-04 03:02] LABS: ALBUMIN 2.1 g/dL (3.4-5.0); BILIRUBIN,TOTAL 0.2 mg/dL (0.2-1.0)
--- NOTE | 2019-06-04 03:02 | NUR ---
RAUL FROM [facility] TO ER BED 5. PT IS ALERT AND AWAKE. ANSWER TO YES AND NO QUESTION BY HEAD GESTURE. BED BOUND. ON VENT AND TRACH - PORTEX 7 AND AC15 VT500 FIO2 40% +5 PEEP.M BROUGHT IN FOR TACHYCARDIA AND HYPOTENSION PER EMS REPORT. TACHYCARDIA IS REPORTED AT 130 AND NO VALUE REPORTED FOR HYPOTENSION. RECTAL TEMP 99.8. NOTED BILAT UPPER EXT CONTRACTURE. PRESSURE ULCER ON SACRAL STAGE, GEN BACK REDNESS AND PURPLISH DISCOLORATION. PT HAD A PICC ON L UPPER THIGH WITH 3 LUMEN.BERGER CATH IN USE, PATENT. WAS AT BEDSIDE FOR EVAL. IV LINE OBTAINED ON L HAND W/ 22G. BLOOD DRAWN AND GIVEN TO HUMAN SERVICE SPECIALIST.
[2019-06-04] MEDS ORDERED: IV NS 0.9% 1,000 ML IV PRN (03:30)
[2019-06-04] MEDS ORDERED: VANCOMYCIN 1 GM in IV D5W 250 ML IV ONE (03:30)
[2019-06-04] MEDS ORDERED: PIPERACILLIN /TAZOBACTAM 3.375 G in IV D5W 50 ML IV ONE (03:30)
[2019-06-04] MEDS ORDERED: PIPERACILLIN /TAZOBACTAM 3.375 G VIAL IV ONE (03:35)
[2019-06-04] MEDS ORDERED: VANCOMYCIN 1 GM VIAL ONE (03:35)
[2019-06-04 03:55] LABS: APPEARANCE,URINE Clear (CLEAR); BILIRUBIN,URINE Negative (NEGATIVE); BLOOD, URINE Trace-intact Ery/uL (NEGATIVE); COLOR,URINE Yellow (YELLOW); KETONES,URINE Negative (NEGATIVE); LEUKOCYTE ESTERASE ,URINE Negative (NEGATIVE); NITRITE, URINE Negative (NEGATIVE); PROTEIN,URINE >=300 mg/dl (NEGATIVE); UGLUCOSE Negative (NEGATIVE); UROBILINOGEN,URINE 0.2 EU/dL (0.2)
[2019-06-04] MEDS ORDERED: HYDROCODONE/APAP 5/325MG 1 EACH TABLET GT PRN (04:00)
[2019-06-04] MEDS ORDERED: ONDANSETRON HCL/PF 4 MG/2 ML VIAL IVP PRN (04:00)
[2019-06-04] MEDS ORDERED: ALBUTEROL FS 2.5 MG/0.5 ML VIAL.NEB NEB PRN (04:00)
--- NOTE | 2019-06-04 04:00 | NUR ---
CALLED SUP FOR [facility] BED. +ISO
[2019-06-04 04:24] LABS: BACTERIA,URINE None seen /HPF (None Seen); RBC,URINE 0-2 /HPF (0-2); SQUAMOUS EPITHELIAL CELL,UR Few /HPF (None Seen); WBC,URINE 0-2 /HPF (0-3)
[2019-06-04] MEDS ORDERED: PIPERACILLIN /TAZOBACTAM 3.375 G in IV D5W 50 ML IV SCH (05:00)
--- NOTE | 2019-06-04 05:22 | NUR ---
REPORT GIVEN TO HERNANDEZ CARRILLO FOR ELOY.
--- NOTE | 2019-06-04 05:32 | NUR ---
PT TRANSPORTED TO UNIT ON [facility] WITH EMT, RT AND RN W/ ACLS PROTOCOL. NAD NOTED DURING TRANSPORT.
[2019-06-04] MEDS: IV NS 0.9% 1,000 ML IV PRN ×2 (05:59→18:52)
[2019-06-04] MEDS ORDERED: ONDANSETRON HCL/PF - ER 4 MG/2 ML VIAL IV ONE (06:00)
[2019-06-04] MEDS ORDERED: FEE PK DOSING 1 MIN EA MC ONE (06:12)
[2019-06-04 06:21] VITALS: BP 116/63
--- NOTE | 2019-06-04 07:18 | NUR ---
RN NOTES RECEIVED PATIENT ON A STRETCHER FROM ER WITH NO DISTRESS NOTED. WITH CHRONIC RESPIRATORY FAILURE VENT DEPENDENT TOLERATING WELL. BREATHING EVEN AND UNLABORED. PATIENT HAS AN ADMITTING DIAGNOSIS OF SEPSIS AND PNA. VITAL SIGNS WNL. SKIN ASSESSMENT DONE. 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 STARTED IV NS @ 75MLS/ HR TOLERATING WELL. KEPT CLEAN AND DRY. WILL ENDORSE TO AM SHIFT FOR CONTINUITY OF CARE
--- NOTE | 2019-06-04 07:26 | NUR ---
RN W[facility]I NOTES RECEIVED BEDSIDE REPORT FROM NOC. PT IN BED SLEEPING ABLE TO AROUSE WITH VOICE AND TOUCH. A/O X1NO S/S OF RESPIRATORY DISTRESS VENT/TRACH TOLERATING SETTINGS ORDERED NO S/S OF PAIN. SINUS TACH ON MONITOR BERGER CATH DRAINING CLEAR YELLOW URINE TO GRAVITY. PT NPO GT CLAMPED. TRIPLE LUMEN PIG TAIL TO LEFT THIGH RUNNING NS@ 75 ML/HR. LEFT HAND # 22 SL. SAFETY AND ASPIRATION PRECAUTIONS IN PLACE HOB ELEVATED REPOSITIONED FOR COMFORT WILL CONT TO MONITOR ACCORDINGLY
[2019-06-04 08:00] VITALS: BP 121/73
--- NOTE | 2019-06-04 08:22 | NUR ---
CALLED [facility] HERNANDEZ PT HAS POWER OF TOLL BOOTH OPERATOR AND WILL BE FAXED OVER. WILL F/U
[2019-06-04] MEDS: PIPERACILLIN /TAZOBACTAM 3.375 G in IV D5W 100 ML IV SCH ×2 (09:22→18:34)
[2019-06-04] MEDS: PANTOPRAZOLE 40 MG VIAL IV SCH (09:22)
--- NOTE | 2019-06-04 09:51 | NUR ---
SPOKE WITH POWER OF GENERAL MACHINIST RAZ BALLESTEROS PT IS FULL CODE. MAIN CONCERN IS FOR DIETARY AND NUTRITION. REQUEST THAT PT BE PLACED ON HIGH THAN NEEDED REQUIREMENTS OF FEEDING D/T PT CONDITION AND INCREASED METABOLISM
--- NOTE | 2019-06-04 10:36 | NUR ---
POWER OF BIOTECHNOLOGIST FAXED FROM [facility] AND PLACED IN CHART
--- NOTE | 2019-06-04 11:22 | NUR ---
REPORT ENDORSED TO MARY NG
[2019-06-04 12:00] VITALS: BP 108/66
[2019-06-04] MEDS ORDERED: BISACODYL SUPP (10 MG) 10 MG/SUPP.RECT SUPP.RECT RC PRN (12:00)
[2019-06-04] MEDS ORDERED: GLUCERNA 1.5 1,000 ML BOTTLE GT SCH ×2 (12:00→21:00)
[2019-06-04 14:00] VITALS: BP 123/67
[2019-06-04 16:00] VITALS: BP 123/67
[2019-06-04] MEDS ORDERED: VANCOMYCIN 500 MG in IV D5W 100 ML IV SCH (16:00)
[2019-06-04] MEDS: VANCOMYCIN HCL 0.75 GM in IV D5W 250 ML IV SCH (16:46)
[2019-06-04] MEDS: PROSOURCE / PROSTAT (PYXIS) 30 ML UDC GT SCH (16:51)
[2019-06-04] MEDS: FERROUS SULFATE UDC 300 MG/5 ML UDC GT SCH (16:51)
[2019-06-04] MEDS: CHLORHEXIDINE GLUCONATE 15 ML UDC MM SCH (16:51)
[2019-06-04] MEDS: FLUCONAZOLE (100 MG) 100 MG TABLET PO SCH (16:52)
[2019-06-04] MEDS: TRAMADOL HCL 50 MG TABLET GT PRN (16:54)
[2019-06-04] MEDS ORDERED: ARGININE/GLUTAMINE/CALCIUM BMB 1 EACH POWD.PACK GT SCH (17:00)
--- NOTE | 2019-06-04 18:08 | NUR ---
RT END OF THE SHIFT REPORT, PT. 68 Y OLD FEMALE REC. 0700 AM AWAKE, BUT NOT VERBAL TRACH'D PORTEX # 7 ON VENT WITH NOTES SETTINGS, ALARMS ARE SET AND FUNCTIONAL. EQUAL CHEST RISE NOTED AND BILATERALLY RHONCHI B/S AND SUX'D FOR LARGE AMT OF YELLOW/KU SECRETIONS, NO CHANGES T/O DAY AND PT. REMAIN STABLE. EXTAR TRACH AT THE BEDSIDE. HOME APPLIANCE INSTALLER DONE, TRACH CARE DONE, HME CHANGED. VENT PLUGGED INTO RED OUT LET & AMBU BAG AT THE BEDSIDE. REPORT WILL PASS TO PM SHIFT. Addendum: 06/04/19 at 1810 by MACIEJ BOWENS RT Amended: Links added.
[2019-06-04 18:28] LABS: OCCULT BLOOD STOOL NEGATIVE (NEGATIVE)
[2019-06-04] MEDS: NYSTATIN TOP POWDER 15 GM BOTTLE TP SCH (18:34)
--- NOTE | 2019-06-04 19:23 | NUR ---
RN OPENING NOTES: RECEIVED PT IN BED, EYES CLOSED. ON ISOLATION FOR MRSA OF SACRAL WOUND. NO ACUTE DISTRESS NOTED. ON TRACH AND VENT, NO RESPIRATORY DISTRESS NOTED. A&OX2 AND NODS. HAS FC IN PLACE DRAINING. HAS IV SITE ON LEFT THIGH TRIPLE LUMEN AND LEFT HAND #22 W/ NS RUNNING @ 75ML/HR. IV SITES FLUSHED, PATENT AND DRY. ON GTF GLUCERNA 1.5 RUNNING AT 65ML/HR. BED IN LOWEST AND LOCKED POSITION, SIDE RAILS UP X2, CALL LIGHT W/IN REACH. WILL CONTINUE TO MONITOR.
[2019-06-04 20:00] VITALS: BP 140/76
[2019-06-05] VITALS: BP 168/90
[2019-06-05] MEDS: TRAMADOL HCL 50 MG TABLET GT PRN ×2 (01:26→17:43)
[2019-06-05] MEDS: TEMAZEPAM 15 MG CAPSULE GT PRN (01:26)
--- NOTE | 2019-06-05 01:30 | NUR ---
RN NOTES: PT NOTED W/ ELEVATED BP OF 178/96 AND HR OF 115 AT 1320. HAD ELEVATED BP OF168/90 AND HR OF 111 AT 0000. MOLLY, DIORAMA MODEL MAKER MADE AWARE AND GAVE ORDER TO REEVALUATE IN 30 MINS.
[2019-06-05] MEDS: PIPERACILLIN /TAZOBACTAM 3.375 G in IV D5W 100 ML IV SCH ×3 (01:32→18:10)
--- NOTE | 2019-06-05 02:26 | NUR ---
RN NOTES: ADMINISTERED ULTRAM AND RESTORIL. RECHECKED PT'S BP AND IT IS NOW 150/86. AWARE.
[2019-06-05 04:00] VITALS: BP 161/98
[2019-06-05] MEDS: VANCOMYCIN HCL 0.75 GM in IV D5W 250 ML IV SCH ×2 (04:46→16:49)
[2019-06-05] MEDS: IV NS 0.9% 1,000 ML IV PRN (06:14)
[2019-06-05 06:31] LABS: CALCIUM, SERUM 8.2 mg/dL (8.5-10.1); CREATININE 0.4 mg/dL (0.6-1.3); MAGNESIUM 1.9 mg/dL (1.8-2.4); PHOSPHORUS 3.2 mg/dL (2.5-4.9); POTASSIUM 4.3 mmol/L (3.5-5.1)
[2019-06-05 06:34] LABS: BASOPHILS % (AUTO) 0.3 % (0.0-2.0); EOSINOPHILS % (AUTO) 1.2 % (0.0-6.0); HEMATOCRIT 26 % (33-45); HEMOGLOBIN 8.4 g/dL (11.5-14.8); LYMPHOCYTES # (AUTO) 0.8 /CMM (0.8-4.8); LYMPHOCYTES % (AUTO) 12.7 % (20.0-44.0); MEAN CORPUSCULAR HGB CONC 33 g/dl (31.0-36.0); MEAN CORPUSCULAR VOLUME 93 fL (82-100); MONOCYTES # (AUTO) 0.4 /CMM (0.1-1.30); MONOCYTES % (AUTO) 7.1 % (2.0-12.0); NEUTROPHILS # (AUTO) 4.8 /CMM (1.8-8.9); NEUTROPHILS % (AUTO) 78.7 % (43.0-81.0); PLATELET COUNT (AUTO) 302 /CMM (150-450); RED BLOOD CELL COUNT(AUTO) 2.75 MIL/uL (4.0-5.2); WHITE BLOOD COUNT (AUTO) 6.1 K/uL (4.3-11.0)
--- NOTE | 2019-06-05 06:37 | NUR ---
RN CLOSING NOTES: PT RESTING IN BED IN NO ACUTE DISTRESS. ON TELE MONITOR SHOWING ST. ON TRACH AND VENT W/ NO RESPIRATORY DISTRESS NOTED. PT HAD ELEVATED BP AND PAIN DURING SHIFT. ADMINISTERED PRN MEDICATIONS ORDERED. MD AWARE OF ELEVATED BP. NO OTHER SIGNIFICANT CHANGES NOTED DURING SHIFT. ALL MEDICATIONS GIVEN ORDERED. ALL NEEDS ANTICIPATED AND MET. WILL ENDORSE TO AM NURSE FOR ELOY.
--- NOTE | 2019-06-05 07:51 | NUR ---
RN OPENING NOTE: RECEIVED PATIENT IN BED THIS MORNING SLEEPING. NO ACUTE DISTRESS NOTED. NO RESPIRATORY DISTRESS NOTED. PATIENT HAS TRACH, TOLERATING SETTINGS WELL. PATIENT HAS FC, PATENT AND DRAINING. PATIENT ON GTF, GLUCERNA 1.5 AT 65CC/HR. PICC LINE AT LEFT THIGH TRIPLE LUMEN, SITE C/D/I, FLUSHING WELL W/ NS RUNNING AT 75CC/HR. PATIENT IS ON CONTACT PRECAUTIONS FOR MRSA OF SACRAL WOUND. SAFETY MEASURES IMPLEMENTED. BED IN LOWEST POSITION, LOCKED WITH SIDE RAILS UP X2. CALL LIGHT WITHIN REACH. WILL CONTINUE TO MONITOR PATIENT FOR ANY CHANGES.
[2019-06-05 08:00] VITALS: BP 151/81
[2019-06-05] MEDS: MULTIVIT W/MINERALS 1 TAB TABLET PO SCH (08:51)
[2019-06-05] MEDS: FLUCONAZOLE (100 MG) 100 MG TABLET PO SCH (08:51)
[2019-06-05] MEDS: CHLORHEXIDINE GLUCONATE 15 ML UDC MM SCH ×2 (08:51→16:47)
[2019-06-05] MEDS: ASCORBIC ACID 500 MG TABLET GT SCH (08:51)
[2019-06-05] MEDS: PANTOPRAZOLE 40 MG VIAL IV SCH (08:51)
[2019-06-05] MEDS: ZINC SULFATE 220 MG CAPSULE GT SCH (08:51)
[2019-06-05] MEDS: FERROUS SULFATE UDC 300 MG/5 ML UDC GT SCH ×2 (08:51→16:47)
[2019-06-05] MEDS: PROSOURCE / PROSTAT (PYXIS) 30 ML UDC GT SCH ×2 (08:53→16:47)
[2019-06-05] MEDS: NYSTATIN TOP POWDER 15 GM BOTTLE TP SCH ×2 (09:06→16:47)
[2019-06-05 12:00] VITALS: BP 133/69
[2019-06-05] MEDS: CLOTRIMAZOLE/BETAMETASONE DIPROPIONATE 15 GM TUBE TP SCH ×2 (14:48→16:47)
[2019-06-05] MEDS: HYDROGEL DRESSING 90 GM TUBE TP SCH (14:48)
[2019-06-05] MEDS: Z GUARD REMEDY 2 OZ OINT TP SCH (14:48)
[2019-06-05 16:00] VITALS: BP 141/71
--- NOTE | 2019-06-05 18:41 | NUR ---
RT END OF THE SHIFT REPORT, PT. 68 Y OLD FEMALE REC. 0700 AM AWAKE, BUT NOT VERBAL TRACH'D PORTEX # 7 ON VENT WITH NOTES SETTINGS, ALARMS ARE SET AND FUNCTIONAL. EQUAL CHEST RISE NOTED AND BILATERALLY RHONCHI B/S AND SUX'D FOR LARGE AMT OF YELLOW/KU SECRETIONS, NO CHANGES T/O DAY AND PT. REMAIN STABLE. EXTAR TRACH AT THE BEDSIDE. DOCUMENT MANAGEMENT CONSULTANT DONE, TRACH CARE DONE, HME CHANGED. VENT PLUGGED INTO RED OUT LET & AMBU BAG AT THE BEDSIDE. REPORT WILL PASS TO PM SHIFT. Addendum: 06/05/19 at 1841 by MACIEJ BOWENS RT Amended: Links added.
--- NOTE | 2019-06-05 19:18 | NUR ---
RN CLOSING NOTE: PATIENT IS RESTING IN BED. TOLERATING GTF WELL. PICC LINE FLUSHING WELL, C/D/I. NO SIGNS OF COMPLICATIONS NOTED. NO SIGNS OF RESPIRATORY DISTRESS NOTED. PATIENT ON TELE MONITOR, SINUS RHYTHM. BERGER DRAINING AND INTACT. CONTACT ISOLATION FOR MRSA OF WOUND. SAFETY MEASURES IMPLEMENTED. BED IN LOWEST POSITION, LOCKED, SIDE RAILS UP X2. CALL LIGHT WITHIN REACH. WILL ENDORSE TO FOLLOWING SHIFT RN FOR CONTINUITY OF CARE.
--- NOTE | 2019-06-05 19:30 | NUR ---
RN OPENING NOTES: RECEIVED PT IN BED A&OX1-2. ON VENT AND TRACH NO RESPIRATORY DISTRESS NOTED. ON TELE MONITOR SHOWING SR. ON CONTACT ISOLATION FOR MRSA OF WOUND. ON GT FEEDING OF GLUCERNA 1.2 AT 55ML/HR TOLERATING WELL. PICC LINE ON LEFT THIGH FLUSHING AND PATENT. BERGER CATH IN INTACT AND DRAINING WELL. BED IN LOWEST AND LOCKED POSITION, SIDE RAILS UP X2, CALL LIGHT WITHIN REACH. WILL CONTINUE TO MONITOR.
[2019-06-05 20:00] VITALS: BP 141/78
--- NOTE | 2019-06-05 20:01 | NUR ---
PT RECEIVED TRACH PTX 7 ON ESPRIT VENT. NO RESP DISTRESS. PT IS AWAKE. TOLERATING VENT SETTINGS. TRACH SECURE, CUFF CHEMICAL INSPECTOR. SX'D FOR MOD AMT OF THICK YELLOW SECRETIONS. VENT ALARMS SET AND AUDIBLE. AMBU BAG AT BEDSIDE. CONTINUE [facility] VENT SUPPORT. Addendum: 06/05/19 at 2002 by JENNIFER JUNG RT Amended: Links added.
[2019-06-06] VITALS (7 sets, daily range): BP systolic 138–157; BP diastolic 74–86
[2019-06-06] MEDS: PIPERACILLIN /TAZOBACTAM 3.375 G in IV D5W 100 ML IV SCH ×3 (02:03→18:12)
[2019-06-06] MEDS: VANCOMYCIN HCL 0.75 GM in IV D5W 250 ML IV SCH ×2 (03:26→16:43)
[2019-06-06] MEDS: IV NS 0.9% 1,000 ML IV PRN (05:21)
--- NOTE | 2019-06-06 06:44 | NUR ---
RN CLOSING NOTES: PT RESTING IN BED, ON TRACH AND VENT TOLERATING SETTINGS WELL. SUCTIONING PT NEEDED. NO DISTRESS NOTED. NO SIGNIFICANT CHANGES DURING SHIFT. HAS BERGER, PATENT AND DRAINING. HAS LEFT THIGH PICC LINE W/ 0.9% NS RUNNING AT 75ML/HR. HAS GTF OF GLUCERNA 1.2 TOLERATING WELL. BED IN LOWEST AND LOCKED POSITION, SIDE RAILS UP X2, CALL LIGHT WITHIN REACH. WILL ENDORSE TO AM NURSE FOR ELOY.
--- NOTE | 2019-06-06 07:30 | NUR ---
RN NOTES RECEIVED PATIENT IN BED, OBTUNDED. TRACH TO VENT. TOLERATING CURRENT VENT SETTINGS. NOT ON ANY FORM OF DISTRESS. SATING 100% AT THIS TIME. NSR ON THE MONITOR WITH HR ON THE 80S. GTF RUNNING AT 55CC/HR. IVF RUNNING 75CC/HR OVER THE L THIGH PICC LINE. BERGER CATHETER IN PLACE DRAINING TO CLEAR YELLOW URINE. HOB KEP ELEVATED. SRX2 RAISED. BED IN LOW AND LOCKED POSITIONED. CALL LIGHT W/IN REACH. WILL CONTINUE TO MONITOR PATIENT ACCORDINGLY
[2019-06-06 07:32] LABS: BASOPHILS % (AUTO) 0.4 % (0.0-2.0); EOSINOPHILS % (AUTO) 2.2 % (0.0-6.0); HEMATOCRIT 26 % (33-45); HEMOGLOBIN 8.6 g/dL (11.5-14.8); LYMPHOCYTES # (AUTO) 0.8 /CMM (0.8-4.8); MEAN CORPUSCULAR HGB CONC 33 g/dl (31.0-36.0); MEAN CORPUSCULAR VOLUME 92 fL (82-100); MONOCYTES # (AUTO) 0.5 /CMM (0.1-1.30); MONOCYTES % (AUTO) 6.4 % (2.0-12.0); NEUTROPHILS # (AUTO) 5.8 /CMM (1.8-8.9); PLATELET COUNT (AUTO) 323 /CMM (150-450); RED BLOOD CELL COUNT(AUTO) 2.82 MIL/uL (4.0-5.2); WHITE BLOOD COUNT (AUTO) 7.2 K/uL (4.3-11.0)
--- NOTE | 2019-06-06 07:49 | NUR ---
RT note Pt received trached on mechanical ventilation with noted settings. Pt is awake and responds to stimuli. Vent is plugged into red outlet. No SOB or respiratory distress noted. Addendum: 06/06/19 at 1803 by NEGIN MUJICA RT Amended: Links added.
[2019-06-06 08:17] LABS: CALCIUM, SERUM 8.3 mg/dL (8.5-10.1); CREATININE 0.4 mg/dL (0.6-1.3); MAGNESIUM 1.8 mg/dL (1.8-2.4); PHOSPHORUS 3.4 mg/dL (2.5-4.9); POTASSIUM 4.4 mmol/L (3.5-5.1)
--- NOTE | 2019-06-06 09:00 | NUR ---
RN NOTES GT CONFIRMED THROUGH AUSCULTATION AND ASPIRATING GASTRIC RESIDUAL. NO RESIDUAL TAKEN AT THIS TIME
[2019-06-06] MEDS: CHLORHEXIDINE GLUCONATE 15 ML UDC MM SCH ×2 (09:09→16:44)
[2019-06-06] MEDS: MULTIVIT W/MINERALS 1 TAB TABLET PO SCH (09:09)
[2019-06-06] MEDS: PANTOPRAZOLE 40 MG VIAL IV SCH (09:09)
[2019-06-06] MEDS: FERROUS SULFATE UDC 300 MG/5 ML UDC GT SCH ×2 (09:10→16:43)
[2019-06-06] MEDS: ZINC SULFATE 220 MG CAPSULE GT SCH (09:10)
[2019-06-06] MEDS: FLUCONAZOLE (100 MG) 100 MG TABLET PO SCH (09:10)
[2019-06-06] MEDS: ASCORBIC ACID 500 MG TABLET GT SCH (09:10)
[2019-06-06] MEDS: PROSOURCE / PROSTAT (PYXIS) 30 ML UDC GT SCH ×2 (09:11→16:43)
[2019-06-06] MEDS: CLOTRIMAZOLE/BETAMETASONE DIPROPIONATE 15 GM TUBE TP SCH ×2 (09:11→16:44)
[2019-06-06] MEDS: NYSTATIN TOP POWDER 15 GM BOTTLE TP SCH ×2 (09:11→16:44)
[2019-06-06] MEDS: HYDROGEL DRESSING 90 GM TUBE TP SCH (09:11)
[2019-06-06] MEDS: Z GUARD REMEDY 2 OZ OINT TP SCH (09:12)
--- NOTE | 2019-06-06 10:16 | NUR ---
WOUND CARE CONSULT WOUND CARE RECEIVED CONSULT FOR SACRAL WOUND. WOUND CARE WILL DEFER CONSULT AND ALL TREATMENT PLANS TO PLASTIC SURGICAL TEAM INCLUDING DPM DR PINA WHO ARE ALL FOLLOWING THIS PATIENT AT THIS TIME. PATIENT WITH ITALO AT 9, ALL PRESSURE ULCER PREVENTION MEASURES ARE NOTED TO BE IN PLACE. WILL SEE PRN.
[2019-06-06] MEDS: GLUCERNA 1.2 1,000 ML BOTTLE GT PRN (10:57)
--- NOTE | 2019-06-06 19:08 | NUR ---
RN NOTES ENDORSED PATIENT FOR CONTINUITY OF CARE. NOT ON ANY FORM OF DISTRESS. NO INDICATION OF PAIN PATIENT IS CALMLY SLEEPING. SAFETY MEASURES IN PLACE. HOB ELEVATED. CALL LIGHT WITHIN REACH
--- NOTE | 2019-06-06 20:23 | NUR ---
RT NOTE Pt rec'd trached on [facility] vent on AC mode. Pt shows no signs of resp distress or sob. Trach patent and secured. BOTTOM SCRUBBER cuff pressure noted. Pt sx'd for thick mod amt of pale yellow secretions. Alarms are set and audible. Vent plugged into red outlet. Ambu bag bedside. Will continue to monitor closely. Addendum: 06/06/19 at 2024 by FRANCESCO ANG RT Amended: Links added.
[2019-06-07] VITALS: BP 153/79
[2019-06-07] MEDS: PIPERACILLIN /TAZOBACTAM 3.375 G in IV D5W 100 ML IV SCH ×3 (01:04→18:58)
[2019-06-07] MEDS: IV NS 0.9% 1,000 ML IV PRN ×2 (01:04→20:08)
[2019-06-07] MEDS: VANCOMYCIN HCL 0.75 GM in IV D5W 250 ML IV SCH ×2 (03:49→16:49)
[2019-06-07 04:00] VITALS: BP 120/77
[2019-06-07] MEDS: GLUCERNA 1.2 1,000 ML BOTTLE GT PRN ×2 (04:55→22:29)
[2019-06-07 06:28] LABS: BASOPHILS % (AUTO) 0.3 % (0.0-2.0); HEMATOCRIT 27 % (33-45); LYMPHOCYTES # (AUTO) 0.5 /CMM (0.8-4.8); LYMPHOCYTES % (AUTO) 7.3 % (20.0-44.0); MEAN CORPUSCULAR HGB CONC 34 g/dl (31.0-36.0); MEAN CORPUSCULAR VOLUME 93 fL (82-100); MONOCYTES # (AUTO) 0.4 /CMM (0.1-1.30); MONOCYTES % (AUTO) 5.1 % (2.0-12.0); NEUTROPHILS # (AUTO) 5.9 /CMM (1.8-8.9); NEUTROPHILS % (AUTO) 85.3 % (43.0-81.0); PLATELET COUNT (AUTO) 336 /CMM (150-450); RED BLOOD CELL COUNT(AUTO) 2.89 MIL/uL (4.0-5.2)
[2019-06-07 06:35] LABS: CALCIUM, SERUM 8.1 mg/dL (8.5-10.1); CREATININE 0.4 mg/dL (0.6-1.3); MAGNESIUM 1.8 mg/dL (1.8-2.4); POTASSIUM 4.1 mmol/L (3.5-5.1)
--- NOTE | 2019-06-07 07:02 | NUR ---
GOLF BALL MOLDER CLOSING NOTE PT RESTING IN BED, ON TRACH WITH VENT SETTINGS TOLERATING WELL. NO DISTRESS NOTED. NO SIGNIFICANT CHANGES DURING SHIFT. BERGER INTACT, PATENT AND DRAINING. PICC LINE TO LEFT THIGH W/ 0.9% NS RUNNING AT 75ML/HR. HAS GTF OF GLUCERNA 1.2 TOLERATING WELL. BED IN LOWEST POSITION AND LOCKED SIDE RAILS UP X2, CALL LIGHT WITHIN REACH. WILL ENDORSE TO AM NURSE.
--- NOTE | 2019-06-07 07:39 | NUR ---
RT note Pt received trached on mechanical ventilation with noted settings. Pt is awake and responds to stimuli. Vent is plugged into red outlet. No SOB or respiratory distress noted. Addendum: 06/07/19 at 0834 by NEGIN MUJICA RT Amended: Links added.
[2019-06-07 08:00] VITALS: BP 133/75
[2019-06-07] MEDS: ZINC SULFATE 220 MG CAPSULE GT SCH (08:41)
[2019-06-07] MEDS: FLUCONAZOLE (100 MG) 100 MG TABLET PO SCH (08:41)
[2019-06-07] MEDS: CHLORHEXIDINE GLUCONATE 15 ML UDC MM SCH ×2 (08:41→17:35)
[2019-06-07] MEDS: FERROUS SULFATE UDC 300 MG/5 ML UDC GT SCH ×2 (08:41→17:35)
[2019-06-07] MEDS: ASCORBIC ACID 500 MG TABLET GT SCH (08:42)
[2019-06-07] MEDS: MULTIVIT W/MINERALS 1 TAB TABLET PO SCH (08:42)
[2019-06-07] MEDS: PANTOPRAZOLE 40 MG VIAL IV SCH (08:42)
[2019-06-07] MEDS: Z GUARD REMEDY 2 OZ OINT TP PRN (08:46)
[2019-06-07] MEDS: NYSTATIN TOP POWDER 15 GM BOTTLE TP SCH ×2 (08:47→17:36)
[2019-06-07] MEDS: CLOTRIMAZOLE/BETAMETASONE DIPROPIONATE 15 GM TUBE TP SCH ×2 (08:47→17:36)
[2019-06-07] MEDS: HYDROGEL DRESSING 90 GM TUBE TP SCH (08:47)
[2019-06-07] MEDS: PROSOURCE / PROSTAT (PYXIS) 30 ML UDC GT SCH ×2 (08:48→17:35)
[2019-06-07 12:00] VITALS: BP_SYST 125; BP_DIAS 73; BP_DIAS 74
[2019-06-07 16:00] VITALS: BP 145/72
--- NOTE | 2019-06-07 19:15 | NUR ---
RN OPENING NOTE RECEIVED PATIENT IN BED RESTING WITH HOB ELEVATED. A&O X1. ON VENT. BREATHING EVEN AND NON LABORED. NO SOB NOTED. GTF ON AND RUNNING AT 55 ML/HR. ON BERGER. URINE IS CLEAR AND YELLOW IN COLOR. IN NO APPARENT DISTRESS NOTED AT THIS TIME. BED IS LOWERED AND LOCKED FOR SAFETY. WILL CONTINUE TO MONITOR.
[2019-06-07 20:00] VITALS: BP 140/68
[2019-06-08] VITALS (8 sets, daily range): BP systolic 120–183; BP diastolic 61–73
[2019-06-08] MEDS: PIPERACILLIN /TAZOBACTAM 3.375 G in IV D5W 100 ML IV SCH ×3 (01:42→17:42)
[2019-06-08] MEDS: VANCOMYCIN HCL 0.75 GM in IV D5W 250 ML IV SCH ×2 (03:54→16:48)
--- NOTE | 2019-06-08 05:25 | NUR ---
RT NOTE Pt rec'd trached on [facility] vent on AC mode. Pt shows no signs of resp distress or sob. Trach patent and secured. SYSTEMS SOFTWARE ENGINEER cuff pressure noted. Pt sx'd for thick large amt of yellow secretions. Alarms are set and audible. Vent plugged into red outlet. Ambu bag bedside. Will continue to monitor closely. Addendum: 06/08/19 at 0527 by FRANCESCO ANG RT Amended: Links added.
[2019-06-08 06:20] LABS: BASOPHILS % (AUTO) 0.5 % (0.0-2.0); EOSINOPHILS % (AUTO) 3.2 % (0.0-6.0); HEMATOCRIT 28 % (33-45); HEMOGLOBIN 9.2 g/dL (11.5-14.8); LYMPHOCYTES # (AUTO) 0.8 /CMM (0.8-4.8); LYMPHOCYTES % (AUTO) 9.8 % (20.0-44.0); MEAN CORPUSCULAR HGB CONC 33 g/dl (31.0-36.0); MEAN CORPUSCULAR VOLUME 93 fL (82-100); MONOCYTES # (AUTO) 0.6 /CMM (0.1-1.30); MONOCYTES % (AUTO) 7.3 % (2.0-12.0); NEUTROPHILS # (AUTO) 6.4 /CMM (1.8-8.9); NEUTROPHILS % (AUTO) 79.2 % (43.0-81.0); PLATELET COUNT (AUTO) 356 /CMM (150-450); RED BLOOD CELL COUNT(AUTO) 3.01 MIL/uL (4.0-5.2); WHITE BLOOD COUNT (AUTO) 8.1 K/uL (4.3-11.0)
[2019-06-08 06:44] LABS: CALCIUM, SERUM 8.1 mg/dL (8.5-10.1); CREATININE 0.3 mg/dL (0.6-1.3); POTASSIUM 4.3 mmol/L (3.5-5.1)
--- NOTE | 2019-06-08 06:53 | NUR ---
RN CLOSING NOTE PATIENT IS IN BED RESTING WITH HOB ELEVATED. A&O X1. ABLE TO NOD HEAD TO ANSWER YES OR NO. ON VENT. ON GTF GLUCERNA 1.2 @ 55 MLS/HR. GTF ON AND KEPT PATENT. ALL DUE MEDS GIVEN AND TOLERATED WELL. PATIENT IS KEPT CLEAN, DRY, AND COMFORTABLE. TURNED AND REPOSITIONED Q2HRS. IN NO APPARENT DISTRESS NOTED AT THIS TIME. CALL LIGHT IS WITHIN REACH. WILL ENDORSE TO AM SHIFT RN FOR CONTINUATION OF CARE.
--- NOTE | 2019-06-08 07:00 | NUR ---
RN OPENING NOTE RECEIVED PATIENT ON BED, ALERT/ ANSWERS TO YES AND NO QUESTIONS , VENT/TRACH DEPENDENT, TOLERATING CURRENT VENT SETTING WELL, NO SOB NOTED, O2 SAT WNL, ON TELE SR HR IN 80'S , HOB ELEVATED. GTF ON AND RUNNING AT 55 ML/HR. ON BERGER. URINE IS CLEAR AND YELLOW IN COLOR. BED IS LOCKED AND IN LOWEST POSITION, SR UP x3, CALL LIGHT WITHIN EASY REACH, CONTINUE TO MONITOR .
[2019-06-08] MEDS: FLUCONAZOLE (100 MG) 100 MG TABLET PO SCH (08:12)
[2019-06-08] MEDS: PANTOPRAZOLE 40 MG VIAL IV SCH (08:12)
[2019-06-08] MEDS: ZINC SULFATE 220 MG CAPSULE GT SCH (08:12)
[2019-06-08] MEDS: MULTIVIT W/MINERALS 1 TAB TABLET PO SCH (08:12)
[2019-06-08] MEDS: FERROUS SULFATE UDC 300 MG/5 ML UDC GT SCH ×2 (08:12→16:09)
[2019-06-08] MEDS: ASCORBIC ACID 500 MG TABLET GT SCH (08:13)
[2019-06-08] MEDS: CHLORHEXIDINE GLUCONATE 15 ML UDC MM SCH ×2 (08:13→16:09)
[2019-06-08] MEDS: HYDROGEL DRESSING 90 GM TUBE TP SCH (08:13)
[2019-06-08] MEDS: NYSTATIN TOP POWDER 15 GM BOTTLE TP SCH ×2 (08:13→16:08)
[2019-06-08] MEDS: CLOTRIMAZOLE/BETAMETASONE DIPROPIONATE 15 GM TUBE TP SCH ×2 (08:14→16:09)
[2019-06-08] MEDS: PROSOURCE / PROSTAT (PYXIS) 30 ML UDC GT SCH ×2 (08:15→16:10)
[2019-06-08] MEDS: IV NS 0.9% 1,000 ML IV PRN (13:58)
[2019-06-08] MEDS: GLUCERNA 1.2 1,000 ML BOTTLE GT PRN (15:05)
--- NOTE | 2019-06-08 18:35 | NUR ---
RN NOTES PT STABLE, NO SIGNIFICANT CHANGES NOTED ON THIS SHIFT. TOLERAING TF WELL, NS AT 75CC/HR RUNNING , SR UP x3, CALL LIGHT WITHIN EASY REACH, BED LOCKED AND IN LOWEST POSITION, WILL ENDORSE TO MARKETING OPERATIONS INTERN NURSE FOR CONTINUITY OF CARE .
--- NOTE | 2019-06-08 19:25 | NUR ---
TELE/RN NOTES PATIENT RECEIVED IN BED, AWAKE, ALERT AND ORIENTED X1, ANSWER TO YES OR NO QUESTIONS. IN NO ACUTE DISTRESS. BREATHING EVEN AND UNLABORED. NO SHORTNESS OF BREATH NOTED. DENIES ANY PAIN AT THIS TIME. ON TELE MONITORING WITH SINUS RHYTHM. G-TUBE IN PLACE, PATENT, CONNECTED TO FEEDING ORDERED. TOLERATING WELL. TRACH INTACT, PATENT, CONNECTED TO VENT WITH PRESCRIBED SETTINGS. RIGHT FEMORAL PICC LINE IN PLACE, DRESSING INTACT. BERGER CATH IN PLACE, DRAINING WITH CLEAR YELLOW COLOR URINE. SAFETY MAINTAINED. HOB ELEVATED TO SEMI ADAMSON POSITION. BED AT THE LOWEST LOCKED POSITION. CALL LIGHT WITHIN REACH. WILL CONTINUE TO MONITOR PER PLAN OF CARE.
--- NOTE | 2019-06-08 19:45 | NUR ---
RT NOTE PT RECEIVED TRACHED MECHANICAL VENTILATION. CUFF CHECKED VIA CUSTODIAL ENGINEER. AMBU BAG/BACK UP TRACH @ BEDSIDE. TX GIVEN, NO ADVERSE REACTIONS NOTED. SX DONE, TRACH SECURED AND PATENT. ALARMS ON AND AUDIBLE. NO SOB NOTED. WILL CONTINUE TO MONITOR. CONT. PULSE OX CONNECTED. Addendum: 06/09/19 at 0125 by DELIO CARDONA RT Amended: Links added. Addendum: 06/09/19 at 0126 by DELIO CARDONA RT RT NOTE PT RECEIVED TRACHED MECHANICAL VENTILATION. CUFF CHECKED VIA CUSTODIAL ENGINEER. AMBU BAG/BACK UP TRACH @ BEDSIDE. SX DONE, TRACH SECURED AND PATENT. ALARMS ON AND AUDIBLE. NO SOB NOTED. WILL CONTINUE TO MONITOR. CONT. PULSE OX CONNECTED.
[2019-06-09] VITALS (7 sets, daily range): BP systolic 138–177; BP diastolic 67–86
[2019-06-09] MEDS: TRAMADOL HCL 50 MG TABLET GT PRN ×2 (00:04→21:45)
[2019-06-09] MEDS: PIPERACILLIN /TAZOBACTAM 3.375 G in IV D5W 100 ML IV SCH ×3 (01:09→17:35)
[2019-06-09] MEDS: IV NS 0.9% 1,000 ML IV PRN ×2 (03:56→20:13)
[2019-06-09] MEDS: VANCOMYCIN HCL 0.75 GM in IV D5W 250 ML IV SCH ×2 (03:57→15:45)
[2019-06-09 06:34] LABS: CALCIUM, SERUM 8.5 mg/dL (8.5-10.1); CREATININE 0.4 mg/dL (0.6-1.3); POTASSIUM 4.3 mmol/L (3.5-5.1)
--- NOTE | 2019-06-09 07:10 | NUR ---
RN OPENING NOTES PT IN BED HOB ELEVATED AND EYES OPEN. NO OBVIOUS SIGNS OF RESPIRATORY DISTRESS OR PAIN OBSERVED AT THIS TIME. G-TUBE FEEDING RUNNING. PT ALSO HAS A PICC LINE RUNNING NS CURRENTLY AT 75 MLS/HR. REPORT RECEIVED FROM CLIENT SERVICE ASSOCIATE RN WILL CONTINUE TO MONITOR PT.
--- NOTE | 2019-06-09 07:15 | NUR ---
TELE/RN NOTES PATIENT REMAINED IN BED, AWAKE, ALERT AND ORIENTED X1, ANSWER TO YES OR NO QUESTIONS. IN NO ACUTE DISTRESS. BREATHING EVEN AND UNLABORED. NO SHORTNESS OF BREATH NOTED. DENIES ANY PAIN AT THIS TIME. ON TELE MONITORING WITH SINUS RHYTHM. G-TUBE IN PLACE, PATENT, CONNECTED TO FEEDING ORDERED. TOLERATING WELL. TRACH INTACT, PATENT, CONNECTED TO VENT WITH PRESCRIBED SETTINGS. RIGHT FEMORAL PICC LINE IN PLACE, DRESSING INTACT. BERGER CATH IN PLACE, DRAINING WITH CLEAR YELLOW COLOR URINE. SAFETY MAINTAINED. HOB ELEVATED TO SEMI ADAMSON POSITION. BED AT THE LOWEST LOCKED POSITION. CALL LIGHT WITHIN REACH. WILL ENDORSE TO AM SHIFT NURSE FOR ELOY. .
[2019-06-09 08:14] LABS: BASOPHILS % (AUTO) 0.4 % (0.0-2.0); EOSINOPHILS % (AUTO) 3.5 % (0.0-6.0); HEMATOCRIT 29 % (33-45); HEMOGLOBIN 9.3 g/dL (11.5-14.8); LYMPHOCYTES # (AUTO) 0.7 /CMM (0.8-4.8); LYMPHOCYTES % (AUTO) 10.5 % (20.0-44.0); MEAN CORPUSCULAR HGB CONC 32 g/dl (31.0-36.0); MEAN CORPUSCULAR VOLUME 93 fL (82-100); MONOCYTES # (AUTO) 0.5 /CMM (0.1-1.30); MONOCYTES % (AUTO) 7.5 % (2.0-12.0); NEUTROPHILS % (AUTO) 78.1 % (43.0-81.0); PLATELET COUNT (AUTO) 362 /CMM (150-450); RED BLOOD CELL COUNT(AUTO) 3.14 MIL/uL (4.0-5.2); WHITE BLOOD COUNT (AUTO) 6.4 K/uL (4.3-11.0)
[2019-06-09 09:08] LABS: MAGNESIUM 1.9 mg/dL (1.8-2.4); PHOSPHORUS 3.2 mg/dL (2.5-4.9)
[2019-06-09] MEDS: ASCORBIC ACID 500 MG TABLET GT SCH (09:39)
[2019-06-09] MEDS: PROSOURCE / PROSTAT (PYXIS) 30 ML UDC GT SCH ×2 (09:39→17:34)
[2019-06-09] MEDS: MULTIVIT W/MINERALS 1 TAB TABLET PO SCH (09:39)
[2019-06-09] MEDS: ZINC SULFATE 220 MG CAPSULE GT SCH (09:39)
[2019-06-09] MEDS: FLUCONAZOLE (100 MG) 100 MG TABLET PO SCH (09:39)
[2019-06-09] MEDS: FERROUS SULFATE UDC 300 MG/5 ML UDC GT SCH ×2 (09:39→17:34)
[2019-06-09] MEDS: CHLORHEXIDINE GLUCONATE 15 ML UDC MM SCH ×2 (09:39→17:34)
[2019-06-09] MEDS: PANTOPRAZOLE 40 MG VIAL IV SCH (09:39)
[2019-06-09] MEDS: CLOTRIMAZOLE/BETAMETASONE DIPROPIONATE 15 GM TUBE TP SCH ×2 (09:40→17:35)
[2019-06-09] MEDS: HYDROGEL DRESSING 90 GM TUBE TP SCH (09:40)
[2019-06-09] MEDS: NYSTATIN TOP POWDER 15 GM BOTTLE TP SCH ×2 (09:41→17:35)
[2019-06-09] MEDS ORDERED: CEFEPIME 1 GM in IV D5W 50 ML IV SCH (19:00)
--- NOTE | 2019-06-09 19:27 | NUR ---
RN CLOSING NOTES PATIENT REMAINED IN BED, AWAKE, ALERT AND ORIENTED X1, ANSWER TO YES OR NO QUESTIONS. IN NO ACUTE DISTRESS. BREATHING EVEN AND UNLABORED. NO SHORTNESS OF BREATH NOTED. DENIES ANY PAIN AT THIS TIME. ON TELE MONITORING WITH SINUS RHYTHM. G-TUBE IN PLACE, PATENT, CONNECTED TO FEEDING ORDERED. TOLERATING WELL. TRACH INTACT, PATENT, CONNECTED TO VENT WITH PRESCRIBED SETTINGS. RIGHT FEMORAL PICC LINE IN PLACE, DRESSING INTACT. BERGER CATH IN PLACE, DRAINING WITH CLEAR YELLOW COLOR URINE. SAFETY MAINTAINED. HOB ELEVATED TO SEMI ADAMSON POSITION. BED AT THE LOWEST LOCKED POSITION. CALL LIGHT WITHIN REACH. WILL ENDORSE TO PROFESSOR OF LITERACY NURSE FOR ELOY.
[2019-06-09] MEDS: CEFEPIME 2 GM in IV D5W 100 ML IV SCH (21:42)
[2019-06-09] MEDS: TEMAZEPAM 15 MG CAPSULE GT PRN (21:46)
--- NOTE | 2019-06-09 23:59 | NUR ---
RN NOTES RECEIVED PATIENT IN BED WITH NO APPARENT DISTRESS. BREATHING EVEN AND UNLABORED. VENT SETTINS WELL TOLERATED. NOTED WITH FACIAL GRIMMACE, ULTRAM GIVEN FOR PAIN. ALERT AND ORIENTED X 1. NODS OR SHAKES HEAD TO ANSWER YES OR NO QUESTIONS. GAVE RESTORIL FOR SLEEP WITH HELP . KEPT CLEAN AND DRY. WILL CONTINUE TO
[2019-06-10] VITALS: BP 150/76
[2019-06-10] MEDS: GLUCERNA 1.2 1,000 ML BOTTLE GT PRN ×2 (02:50→21:04)
[2019-06-10 04:00] VITALS: BP 141/93
[2019-06-10] MEDS: VANCOMYCIN HCL 0.75 GM in IV D5W 250 ML IV SCH ×2 (04:48→16:17)
--- NOTE | 2019-06-10 06:48 | NUR ---
RN NOTES IN BED RESTING COMFORTABLY WITH NO DISTRESS NOTED. NO SIGNIFICANT CHANGE OF CONDITION. VITAL SIGNS STABLE. NO PHYSICAL MANIFESTATION OF PAIN OR DISCOMFORT OF THIS TIME. KEPT CLEAN AND DRY. WILL ENDORSE TO NEXT SHIFT FOR CONTINUITY OFCARE
--- NOTE | 2019-06-10 07:10 | NUR ---
AX SURVEY WORKER OPENING NOTE RECEIVED BEDSIDE REPORT. PT AWAKE IN BED, TRACHED ON MECH VENT, TOLERATING SETTINGS WELL, NO SIGNS OF RESPIRATORY DISTRESS. BERGER CATHETER DRAINING CLEAR YELLOW URINE, GLUCERNA INFUSING AT 55CC/HR, TOLERATING FEEDING WELL. LEFT FEMORAL PICC LINE INTACT, PATENT, SECURED WITH CLEAN DRESSING, NS INFUSING AT 75CC/HR. BED IN LOW POSITION, LOCKED, CALL LIGHT WITHIN REACH.
[2019-06-10 07:33] LABS: BASOPHILS % (AUTO) 0.4 % (0.0-2.0); EOSINOPHILS % (AUTO) 2.9 % (0.0-6.0); HEMATOCRIT 27 % (33-45); HEMOGLOBIN 8.9 g/dL (11.5-14.8); LYMPHOCYTES # (AUTO) 0.4 /CMM (0.8-4.8); LYMPHOCYTES % (AUTO) 6.2 % (20.0-44.0); MEAN CORPUSCULAR HGB CONC 33 g/dl (31.0-36.0); MEAN CORPUSCULAR VOLUME 92 fL (82-100); MONOCYTES # (AUTO) 0.4 /CMM (0.1-1.30); MONOCYTES % (AUTO) 5.4 % (2.0-12.0); NEUTROPHILS % (AUTO) 85.1 % (43.0-81.0); PLATELET COUNT (AUTO) 374 /CMM (150-450); RED BLOOD CELL COUNT(AUTO) 2.93 MIL/uL (4.0-5.2); WHITE BLOOD COUNT (AUTO) 7.1 K/uL (4.3-11.0)
[2019-06-10 08:00] VITALS: BP 163/87
[2019-06-10 08:15] LABS: CALCIUM, SERUM 8.7 mg/dL (8.5-10.1); CREATININE 0.3 mg/dL (0.6-1.3); MAGNESIUM 1.9 mg/dL (1.8-2.4); PHOSPHORUS 3.1 mg/dL (2.5-4.9)
[2019-06-10] MEDS: PANTOPRAZOLE 40 MG VIAL IV SCH (08:33)
[2019-06-10] MEDS: ASCORBIC ACID 500 MG TABLET GT SCH (08:33)
[2019-06-10] MEDS: ZINC SULFATE 220 MG CAPSULE GT SCH (08:33)
[2019-06-10] MEDS: FERROUS SULFATE UDC 300 MG/5 ML UDC GT SCH ×2 (08:33→16:33)
[2019-06-10] MEDS: CHLORHEXIDINE GLUCONATE 15 ML UDC MM SCH ×2 (08:33→16:33)
[2019-06-10] MEDS: MULTIVIT W/MINERALS 1 TAB TABLET PO SCH (08:33)
[2019-06-10] MEDS: PROSOURCE / PROSTAT (PYXIS) 30 ML UDC GT SCH ×2 (08:34→16:36)
[2019-06-10] MEDS: FLUCONAZOLE (100 MG) 100 MG TABLET PO SCH (08:34)
[2019-06-10] MEDS: NYSTATIN TOP POWDER 15 GM BOTTLE TP SCH ×2 (08:35→16:37)
[2019-06-10] MEDS: HYDROGEL DRESSING 90 GM TUBE TP SCH (08:35)
[2019-06-10] MEDS: CLOTRIMAZOLE/BETAMETASONE DIPROPIONATE 15 GM TUBE TP SCH ×2 (08:36→16:38)
[2019-06-10] MEDS: CEFEPIME 2 GM in IV D5W 100 ML IV SCH ×2 (09:00→21:03)
[2019-06-10 12:00] VITALS: BP 124/67
--- NOTE | 2019-06-10 12:23 | NUR ---
RT NOTE Pt rec'd trached on [facility] vent on AC mode. Pt shows no signs of resp distress or sob. Trach is patent and secured. Pt sx'd for mod amt of pale yellow secretions. Alarms are set and audible. Vent plugged into red outlet. Ambu bag bedside. Will continue to monitor. Addendum: 06/10/19 at 1223 by FRANCESCO ANG RT Amended: Links added.
[2019-06-10] MEDS: IV NS 0.9% 1,000 ML IV PRN (14:47)
[2019-06-10 16:00] VITALS: BP 116/66
[2019-06-10] MEDS: Z GUARD REMEDY 2 OZ OINT TP PRN (16:37)
[2019-06-10 20:00] VITALS: BP 127/74
[2019-06-10] MEDS: TEMAZEPAM 15 MG CAPSULE GT PRN (21:07)
[2019-06-10] MEDS: TRAMADOL HCL 50 MG TABLET GT PRN (21:07)
[2019-06-11] VITALS (8 sets, daily range): BP systolic 114–138; BP diastolic 61–78
[2019-06-11] MEDS: VANCOMYCIN HCL 0.75 GM in IV D5W 250 ML IV SCH ×2 (04:08→16:32)
[2019-06-11] MEDS: IV NS 0.9% 1,000 ML IV PRN ×2 (04:09→20:00)
--- NOTE | 2019-06-11 04:15 | NUR ---
rn notes in bed resting comfartably. no distress noted. breathing even and unlabored. vent settings well tolerated. ultram given at 2100 for pain with relief, restoril for sleep with help. no significant change of condition as of this time. kept clean and dry. will endorse to next shift for continuity of care.
[2019-06-11 06:37] LABS: CALCIUM, SERUM 8.3 mg/dL (8.5-10.1); CREATININE 0.3 mg/dL (0.6-1.3); POTASSIUM 4.2 mmol/L (3.5-5.1)
[2019-06-11] MEDS: FERROUS SULFATE UDC 300 MG/5 ML UDC GT SCH ×2 (08:47→16:36)
[2019-06-11] MEDS: PANTOPRAZOLE 40 MG VIAL IV SCH (08:47)
[2019-06-11] MEDS: CHLORHEXIDINE GLUCONATE 15 ML UDC MM SCH ×2 (08:47→16:36)
[2019-06-11] MEDS: FLUCONAZOLE (100 MG) 100 MG TABLET PO SCH (08:47)
[2019-06-11] MEDS: ASCORBIC ACID 500 MG TABLET GT SCH (08:47)
[2019-06-11] MEDS: MULTIVIT W/MINERALS 1 TAB TABLET PO SCH (08:48)
[2019-06-11] MEDS: PROSOURCE / PROSTAT (PYXIS) 30 ML UDC GT SCH ×2 (08:48→16:36)
[2019-06-11] MEDS: ZINC SULFATE 220 MG CAPSULE GT SCH (08:48)
[2019-06-11] MEDS: CEFEPIME 2 GM in IV D5W 100 ML IV SCH (08:52)
[2019-06-11] MEDS: Z GUARD REMEDY 2 OZ OINT TP PRN (08:53)
[2019-06-11] MEDS: HYDROGEL DRESSING 90 GM TUBE TP SCH (08:53)
[2019-06-11] MEDS: CLOTRIMAZOLE/BETAMETASONE DIPROPIONATE 15 GM TUBE TP SCH ×2 (08:54→16:37)
[2019-06-11] MEDS: NYSTATIN TOP POWDER 15 GM BOTTLE TP SCH ×2 (08:54→16:37)
--- NOTE | 2019-06-11 12:01 | NUR ---
Plan of care discussed with patient's POA .
[2019-06-11] MEDS: GLUCERNA 1.2 1,000 ML BOTTLE GT PRN (14:04)
[2019-06-11] MEDS: TRAMADOL HCL 50 MG TABLET GT PRN ×2 (14:18→20:46)
--- NOTE | 2019-06-11 18:22 | NUR ---
Patient remains stable , vent depended. G-tube feeding continuously at rate 55 ml/hr, no residual , tolerated well. All needs attended. Wound care provided as ordered. Patient kept clean and dry and repositioned Q2HR. IV fluid running as ordered , PICC line intact and patent. F/C in place with output 1700ml/hr. Will endorse to next shift for ELOY .
[2019-06-11] MEDS ORDERED: LEVOFLOXACIN (500MG) 500 MG TABLET GT SCH (19:30)
[2019-06-11] MEDS: TEMAZEPAM 15 MG CAPSULE GT PRN (20:48)
[2019-06-11] MEDS: DOXYCYCLINE HYCLATE (100 MG) 100 MG TABLET GT SCH (20:50)
[2019-06-12] VITALS: BP_SYST 124; BP_SYST 133; BP_DIAS 68; BP_DIAS 73
--- NOTE | 2019-06-12 02:40 | NUR ---
rn notes Alert and oriented x 2. nods or shakes head in answer to a yes or no question. in bed resting comfortably. no distress noted. breathing even and unlabored. vent settings well tolerated. ultram given at 2100 for pain with relief, restoril for sleep with help. no significant change of condition as of this time. kept clean and dry. will endorse to next shift for continuity of care.
[2019-06-12 04:00] VITALS: BP 139/70
[2019-06-12 08:00] VITALS: BP 145/69
[2019-06-12] MEDS: FLUCONAZOLE (100 MG) 100 MG TABLET PO SCH (08:31)
[2019-06-12] MEDS: FERROUS SULFATE UDC 300 MG/5 ML UDC GT SCH (08:31)
[2019-06-12] MEDS: PANTOPRAZOLE 40 MG VIAL IV SCH (08:31)
[2019-06-12] MEDS: DOXYCYCLINE HYCLATE (100 MG) 100 MG TABLET GT SCH (08:31)
[2019-06-12] MEDS: ZINC SULFATE 220 MG CAPSULE GT SCH (08:31)
[2019-06-12] MEDS: ASCORBIC ACID 500 MG TABLET GT SCH (08:31)
[2019-06-12] MEDS: CHLORHEXIDINE GLUCONATE 15 ML UDC MM SCH (08:31)
[2019-06-12] MEDS: MULTIVIT W/MINERALS 1 TAB TABLET PO SCH (08:33)
[2019-06-12] MEDS: HYDROGEL DRESSING 90 GM TUBE TP SCH (08:34)
[2019-06-12] MEDS: NYSTATIN TOP POWDER 15 GM BOTTLE TP SCH (08:34)
[2019-06-12] MEDS: CLOTRIMAZOLE/BETAMETASONE DIPROPIONATE 15 GM TUBE TP SCH (08:35)
[2019-06-12 08:49] LABS: CALCIUM, SERUM 8.8 mg/dL (8.5-10.1); CREATININE 0.3 mg/dL (0.6-1.3); POTASSIUM 4.5 mmol/L (3.5-5.1)
[2019-06-12 12:00] VITALS: BP_SYST 170; BP_DIAS 82; BP_DIAS 85
--- NOTE | 2019-06-12 12:00 | NUR ---
PATIENT RESTING IN ROOM- NO COMPLAINTS OR CONCERNS - FAMILY BEDSIDE- SAFETY PRECAUTIONS IN PLACE- WILL CONTINUE TO MONITOR REPORT AND RECORD
[2019-06-12] MEDS ORDERED: DOXY100T2 GT (12:01)
[2019-06-12] MEDS ORDERED: FLUC100T8 PO (12:01)
[2019-06-12] MEDS ORDERED: LEVO500T2 GT (12:01)
[2019-06-12 16:00] VITALS: BP 169/79
[2019-06-12 16:09] VITALS: BP 169/79
--- NOTE | 2019-06-12 17:36 | NUR ---
patient transport her to return patient to facility- feeding tube clamped- central line clamped- RN present to assist with the vent transport - safety precautions in place- report provided to the facility
== END 2019-06-12 17:33 | DRG 853 ==
LOC: ER 02:04 → TELE-TD 04:47 → TELE1 09:15
PROVIDERS: ADMIT Nurse Practitioner Acute Care; ATTEND Internal Medicine
PROC: 5A1955Z Respiratory Ventilation, Greater than 96 Consecutive Hours (ICD-10-PCS; principal; 2019-06-04)
PROC: 02HV33Z Insertion of Infusion Device into Superior Vena Cava, Percutaneous Approach (ICD-10-PCS; 2019-06-04)
PROC: B548ZZA Ultrasonography of Superior Vena Cava, Guidance (ICD-10-PCS; 2019-06-04)
PROC: 0KBP0ZZ Excision of Left Hip Muscle, Open Approach (ICD-10-PCS; 2019-06-05)
PROC: 0KBN0ZZ Excision of Right Hip Muscle, Open Approach (ICD-10-PCS; 2019-06-05)
DX: A41.9 Sepsis, unspecified organism (principal); L89.154 Pressure ulcer of sacral region, stage 4; J69.0 Pneumonitis due to inhalation of food and vomit; G93.41 Metabolic encephalopathy; E43 Unspecified severe protein-calorie malnutrition; J96.20 Acute and chronic respiratory failure, unspecified whether with hypoxia or hypercapnia; R53.2 Functional quadriplegia; N17.0 Acute kidney failure with tubular necrosis; D68.59 Other primary thrombophilia; J44.0 Chronic obstructive pulmonary disease with (acute) lower respiratory infection; Z99.11 Dependence on respirator [ventilator] status; B37.49 Other urogenital candidiasis; J84.9 Interstitial pulmonary disease, unspecified; R64 Cachexia; E11.621 Type 2 diabetes mellitus with foot ulcer; I10 Essential (primary) hypertension; L30.4 Erythema intertrigo; R13.10 Dysphagia, unspecified; M19.90 Unspecified osteoarthritis, unspecified site; M06.9 Rheumatoid arthritis, unspecified; L97.519 Non-pressure chronic ulcer of other part of right foot with unspecified severity; Z93.1 Gastrostomy status; Z87.01 Personal history of pneumonia (recurrent); Z79.4 Long term (current) use of insulin; Z74.01 Bed confinement status; F03.90 Unspecified dementia, unspecified severity, without behavioral disturbance, psychotic disturbance, mood disturbance, and anxiety; D63.8 Anemia in other chronic diseases classified elsewhere; E83.51 Hypocalcemia; Z88.6 Allergy status to analgesic agent; Z91.011 Allergy to milk products; Z88.5 Allergy status to narcotic agent; Z91.018 Allergy to other foods; Z79.899 Other long term (current) drug therapy; Z79.51 Long term (current) use of inhaled steroids; B36.9 Superficial mycosis, unspecified; H91.90 Unspecified hearing loss, unspecified ear; M20.42 Other hammer toe(s) (acquired), left foot; M20.41 Other hammer toe(s) (acquired), right foot; Y95 Nosocomial condition; M62.50 Muscle wasting and atrophy, not elsewhere classified, unspecified site; Z74.09 Other reduced mobility
CPT/HCPCS: 31720; 36415; 71045-TC; 80048-TC; 80076-TC; 80202-TC; 81000-TC; 82272-TC; 83605-TC; 83735-TC; 84100-TC; 84484-TC; 85025-TC; 85730-TC; 87040-TC; 87086-TC; 94002-TC; 94003-TC; 94760-TC; 94762-TC; A4217; A4623; A6248; A6253; A6403; A7526; C9113; G0378; J0692; J2405; J2543; J3370; J7030; J7060

== ENCOUNTER 2019-06-18 04:05 | Inpatient (IN) | payer MEDICARE, MEDICAID ==
[~2019-06-18] VITALS: Ht 167.6 cm; Wt 40.8 kg
[~2019-06-18 04:05] MED LIST changes: +DOXY100T2 GT; +FLUC100T8 PO; +LEVO500T2 GT; -PIPE3.379 IV; -VANC1PLA9 IV
--- NOTE | 2019-06-18 04:11 | NUR ---
PT CAME TO ER BIB RA C/O FEVER. PT WAS BROUGHT IN FROM [facility]. PT HAS A RECTAL TEMPERATURE OF 103.5. PT HAS PRESSURE ULCERS ON LOWER BACK. PT IS TURNED TO THE SIDE W/ PILLOW. AAOX0. NO SOB. ON VENT. A/C 15, 480TIDAL VOLUME, 50% FIO2. 99% O2. CONNECTED TO DREDGE OPERATOR.
--- NOTE | 2019-06-18 04:15 | NUR ---
FLU SWAB SAMPLE COLLECTED AND SENT TO LAB
--- NOTE | 2019-06-18 04:18 | NUR ---
LEGISLATIVE AIDE AT BEDSIDE DRAWING BLOOD
--- NOTE | 2019-06-18 04:19 | NUR ---
XRAY AT BEDSIDE
[2019-06-18 04:28] LABS: BASOPHILS % (AUTO) 0.2 % (0.0-2.0); EOSINOPHILS % (AUTO) 0.1 % (0.0-6.0); HEMATOCRIT 31 % (33-45); HEMOGLOBIN 10.1 g/dL (11.5-14.8); LYMPHOCYTES # (AUTO) 0.4 /CMM (0.8-4.8); LYMPHOCYTES % (AUTO) 3.3 % (20.0-44.0); MEAN CORPUSCULAR HGB CONC 32 g/dl (31.0-36.0); MEAN CORPUSCULAR VOLUME 93 fL (82-100); MONOCYTES # (AUTO) 0.6 /CMM (0.1-1.30); MONOCYTES % (AUTO) 4.9 % (2.0-12.0); NEUTROPHILS # (AUTO) 11.8 /CMM (1.8-8.9); NEUTROPHILS % (AUTO) 91.5 % (43.0-81.0); PLATELET COUNT (AUTO) 417 /CMM (150-450); RED BLOOD CELL COUNT(AUTO) 3.35 MIL/uL (4.0-5.2); WHITE BLOOD COUNT (AUTO) 12.9 K/uL (4.3-11.0)
[2019-06-18] MEDS ORDERED: IBUPROFEN 600 MG TABLET PO ONE ×2 (04:30→04:39)
[2019-06-18] MEDS ORDERED: VANCOMYCIN 1 GM in IV D5W 250 ML IV ONE (04:30)
[2019-06-18] MEDS ORDERED: PIPERACILLIN /TAZOBACTAM 3.375 G in IV D5W 50 ML IV ONE (04:30)
[2019-06-18] MEDS ORDERED: IV NS 0.9% 1,000 ML BAG IV ONE ×2 (04:30→05:30)
[2019-06-18 04:31] LABS: APPEARANCE,URINE Clear (CLEAR); BILIRUBIN,URINE Negative (NEGATIVE); BLOOD, URINE Trace-intact Ery/uL (NEGATIVE); COLOR,URINE Yellow (YELLOW); KETONES,URINE Trace (NEGATIVE); LEUKOCYTE ESTERASE ,URINE Trace (NEGATIVE); NITRITE, URINE Negative (NEGATIVE); PROTEIN,URINE >=300 mg/dl (NEGATIVE); UGLUCOSE Negative (NEGATIVE); UROBILINOGEN,URINE 0.2 EU/dL (0.2)
[2019-06-18] MEDS ORDERED: PIPERACILLIN /TAZOBACTAM 3.375 G VIAL IV ONE (04:38)
[2019-06-18 04:53] LABS: BACTERIA,URINE None seen /HPF (None Seen); RBC,URINE 0-2 /HPF (0-2); SQUAMOUS EPITHELIAL CELL,UR Few /HPF (None Seen); WBC,URINE 0-2 /HPF (0-3)
[2019-06-18 04:54] LABS: ALANINE AMINOTRANSFERASE 37 U/L (12-78); ALBUMIN 2.2 g/dL (3.4-5.0); ALKALINE PHOSPHATASE 133 U/L (46-116); ASPARTATE AMINOTRANSFERASE 33 U/L (15-37); BILIRUBIN,TOTAL 0.2 mg/dL (0.2-1.0); CALCIUM, SERUM 9.5 mg/dL (8.5-10.1); CHLORIDE 104 mmol/L (98-107); CREATININE 0.7 mg/dL (0.6-1.3); GLUCOSE 142 mg/dL (74-106); POTASSIUM 5.3 mmol/L (3.5-5.1); SODIUM SERUM 144 mmol/L (136-145); TOTAL PROTEIN, SERUM 9.1 g/dL (6.4-8.2); UREA NITROGEN, BLOOD 66 mg/dL (7-18)
[2019-06-18 04:56] LABS: CARBON DIOXIDE 41 mmol/L (21-32)
--- NOTE | 2019-06-18 04:58 | NUR ---
RT PLACED PATIENT ON VENT SUPPORT WITH NOTED SETTINGS PER MD ORDER. ALARMS ARE SET AND AUDIBLE. VENT PLUGGED INTO RED OUTLET,AIRWAY PATENT AND SECURED. PATIENT TOLERATED CURRENT VENT SETTINGS.WILL CONTINUE TO MONITOR. Addendum: 06/18/19 at 0501 by NY LEWIS RT Amended: Links added.
--- NOTE | 2019-06-18 04:59 | NUR ---
CO2 41. AWARE.
[2019-06-18] MEDS ORDERED: VANCOMYCIN 1 GM VIAL ONE (05:10)
--- NOTE | 2019-06-18 05:40 | NUR ---
REPORT GIVEN TO DORA NG FOR ELOY.
--- NOTE | 2019-06-18 06:07 | NUR ---
68 years old female patient admitted to tele floor with the DX of Sepsis. In no acute distress, breathing even and unlabored, no SOB. Trach to vent with prescribed settings, Trach intact, patent. Patient A/O x1, open eyes. answer to yes or no questions. g-tube in place, patent. Fierro cath in place, patent, draining with yellow/pale urine. Sinus tachy on the monitor. No S/S of pain noted., Left femoral TLC in place, patent. Dressing intact. Placed patent in bed. Body assessment done per protocol. Clean and dry. Safety maintained, bed at the lowest locked position. Call light within reach. Will endorse to AM shift nurse for ELOY.
--- NOTE | 2019-06-18 06:18 | NUR ---
RT PATIENT TRANSPORTED TO THE [facility] FROM ER ON ON NOTED VENT SETTINGS . ALARMS ARE ON AND AUDIBLE.VENT PLUGGED INTO RED OUTLET. AIRWAY PATENT AND SECURED. AMBUBAG AT BEDSIDE, WILL CONTINUE TO MONITOR. Addendum: 06/18/19 at 0622 by NY LEWIS RT Amended: Links added.
[2019-06-18] MEDS ORDERED: Z GUARD REMEDY 2 OZ OINT TP PRN (06:30)
[2019-06-18] MEDS ORDERED: HYDROCODONE/APAP 5/325MG 1 EACH TABLET PO PRN (06:30)
[2019-06-18] MEDS ORDERED: MAGNESIUM HYDROXIDE 30 ML UDC PO PRN (06:30)
[2019-06-18] MEDS ORDERED: ONDANSETRON HCL/PF 4 MG/2 ML VIAL IVP PRN (06:30)
[2019-06-18] MEDS ORDERED: ACETAMINOPHEN 325 MG TABLET PO PRN (06:30)
[2019-06-18] MEDS ORDERED: ZOLPIDEM TARTRATE 5 MG TABLET PO PRN (06:30)
[2019-06-18] MEDS ORDERED: MAG HYDROX/AL HYDROX/SIMETH 30 ML UDC PO PRN (06:30)
[2019-06-18 06:59] VITALS: BP 123/68
--- NOTE | 2019-06-18 07:00 | NUR ---
RN [facility]ENDI - OPENING PATIENT A/O X 3 PATIENT IS NON VERBAL BUT ANSWER YES AND NO . PATIENT IS ON [facility] VENT WITH VENT SETTING PER DOC ORDERS . NO SOB , NO ACUTE RESPIRATORY DISTRESS . PATIENT ST IN 100'S EXTERNAL NUCLEAR DESIGN ENGINEER. PATIENT HAS A RIGHT FEMORAL TRIP LUMAN. WITH NORMAL SALINE 75 ML/HR PATENT AND INTACT. PATIENT HAS A BERGER. PATIENT SKIN HAS R HIP REDNESS, SACRAL ULCERS, AND REDNESS UPPER BACK. PATIENT HAS GLUCERNA 1.2 25 ML / HR MOVE UP TOLERATED TO 50 ML / HR . BED LOCKED AND LOWEST POSITION CALL LIGHT WITH IN REACH ALL SAFETY MEASURE IMPLEMENTED PER HOSPITAL POLICY
[2019-06-18 08:00] VITALS: BP 79/42
[2019-06-18] MEDS ORDERED: FEE PK DOSING 1 MIN EA MC ONE (08:57)
[2019-06-18 09:14] LABS: CREATININE 0.6 mg/dL (0.6-1.3); POTASSIUM 4.2 mmol/L (3.5-5.1)
[2019-06-18] MEDS: ALBUTEROL HALF STRENGTH 1.25 MG/3 ML VIAL.NEB NEB SCH ×5 (09:24→23:08)
[2019-06-18] MEDS: IPRATROPIUM NEB FS 0.5 MG/2.5 ML AMPUL.NEB NEB SCH ×5 (09:24→23:08)
[2019-06-18 09:42] LABS: ABG BASE EXCESS 9.7 mmol/L; ABG OXYGEN SATURATION 98.3 % (92.0-98.5); ABG PCO2 34.8 mmHg (35.0-45.0); ABG PH 7.583 (7.350-7.450); ABG PO2 116.6 mmHg (75.0-100.0); AaDO2 200.8 mmHg; COHb 0.3 % (0.5-1.5); MetHb 0.3 % (0.0-1.5); O2Hb 97.7 % (94.0-97.0); SITE, ABG Right Radial; VT, ABG 450 mL
[2019-06-18] MEDS ORDERED: METO25TA20 GT (10:00)
[2019-06-18] MEDS ORDERED: CHLO118L6 TP (10:00)
[2019-06-18 12:00] VITALS: BP 111/66
[2019-06-18 12:01] LABS: BASOPHILS % (AUTO) 0.4 % (0.0-2.0); EOSINOPHILS % (AUTO) 0.1 % (0.0-6.0); HEMATOCRIT 27 % (33-45); HEMOGLOBIN 8.8 g/dL (11.5-14.8); LYMPHOCYTES # (AUTO) 0.7 /CMM (0.8-4.8); MEAN CORPUSCULAR HGB CONC 33 g/dl (31.0-36.0); MEAN CORPUSCULAR VOLUME 92 fL (82-100); MONOCYTES # (AUTO) 0.4 /CMM (0.1-1.30); MONOCYTES % (AUTO) 6.6 % (2.0-12.0); NEUTROPHILS # (AUTO) 5.7 /CMM (1.8-8.9); NEUTROPHILS % (AUTO) 82.9 % (43.0-81.0); PLATELET COUNT (AUTO) 303 /CMM (150-450); RED BLOOD CELL COUNT(AUTO) 2.88 MIL/uL (4.0-5.2); WHITE BLOOD COUNT (AUTO) 6.8 K/uL (4.3-11.0)
[2019-06-18] MEDS: PANTOPRAZOLE 40 MG VIAL IV SCH (12:11)
[2019-06-18] MEDS: ENOXAPARIN SODIUM 40 MG/0.4 ML DISP.SYRIN SQ SCH (12:12)
[2019-06-18] MEDS: GLUCERNA 1.2 1,000 ML BOTTLE NG PRN (13:29)
[2019-06-18] MEDS: PIPERACILLIN /TAZOBACTAM 3.375 G in IV D5W 100 ML IV SCH ×2 (13:29→18:09)
[2019-06-18] MEDS: TRAMADOL HCL 50 MG TABLET PO PRN (15:10)
[2019-06-18 16:00] VITALS: BP 118/67
[2019-06-18] MEDS: VANCOMYCIN 0.75 GM in IV D5W 250 ML IV SCH (17:09)
--- NOTE | 2019-06-18 18:26 | NUR ---
RT END OF THE SHIFT REPORT, PT. 68 Y OLD FEMALE REC. IN AM TRACH'D PORTEX # 7 ON VENT WITH NOTED SETTINGS, ALARMS ARE SET AND FUNCTIONAL, HHN INLINE TX'S GIVEN Q4 NO ADVERSE REACTION NOTED. B/S BILATERALLY RHONCHI SUX'S FOR MOD AMT SECRETIONS, HME CHANGED, SENIOR PRODUCTION MANAGER DONE NO DISTRESS NOTED T/O DAY @13[address] KNIGHT ORDER AT THE BEDSIDE, RN AT THE BEDSIDE. AMBU BAG AT THE BEDSIDE. VENT PLUGGED INTO RED OUTLET. REPORT WILL PASS TO PM SHIFT. Addendum: 06/18/19 at 1828 by MACIEJ BOWENS RT Amended: Links added.
--- NOTE | 2019-06-18 18:58 | NUR ---
RN WENDI - OPENING PATIENT A/O X 3 PATIENT IS NON VERBAL BUT ANSWER YES AND NO . PATIENT IS ON MECH VENT WITH VENT SETTING PER DOC ORDERS . NO SOB , NO ACUTE RESPIRATORY DISTRESS . 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 PATIENT HAS A RIGHT FEMORAL TRIP LUMAN. WITH NORMAL SALINE 75 ML/HR PATENT AND INTACT. PATIENT HAS A BERGER. PATIENT SKIN HAS R HIP REDNESS, SACRAL ULCERS, AND REDNESS UPPERBACK. PATIENT HAS GLUCERNA 1.2 25 ML / HR MOVE UP TOLERATED TO 50 ML / HR . BED LOCKED AND LOWEST POSITION CALL LIGHT WITH IN REACH ALL SAFETY MEASURE IMPLEMENTED PER HOSPITAL POLICY Addendum: 06/18/19 at 1858 by GARRY MIRANDA RN RN WENDI - CLOSING PATIENT A/O X 3 PATIENT IS NON VERBAL BUT ANSWER YES AND NO . PATIENT IS ON MECH VENT WITH VENT SETTING PER DOC ORDERS . NO SOB , NO ACUTE RESPIRATORY DISTRESS . 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 PATIENT HAS A RIGHT FEMORAL TRIP LUMAN. WITH NORMAL SALINE 75 ML/HR PATENT AND INTACT. PATIENT HAS A BERGER. PATIENT SKIN HAS R HIP REDNESS, SACRAL ULCERS, AND REDNESS UPERBACK. PATIENT HAS GLUCERNA 1.2 25 ML / HR MOVE UP TOLERATED TO 50 ML / HR . BED LOCKED AND LOWEST POSITION CALL LIGHT WITH IN REACH ALL SAFETY MEASURE IMPLEMENTED PER HOSPITAL POLICY
[2019-06-18 20:00] VITALS: BP 118/68
[2019-06-18 20:37] VITALS: BP 118/68
[2019-06-19] VITALS: BP 125/73
[2019-06-19] MEDS: IV NS 0.9% 1,000 ML IV PRN ×2 (00:42→20:33)
[2019-06-19] MEDS: PIPERACILLIN /TAZOBACTAM 3.375 G in IV D5W 100 ML IV SCH ×3 (02:30→18:04)
[2019-06-19] MEDS: IPRATROPIUM NEB FS 0.5 MG/2.5 ML AMPUL.NEB NEB SCH ×5 (03:30→20:12)
[2019-06-19] MEDS: ALBUTEROL HALF STRENGTH 1.25 MG/3 ML VIAL.NEB NEB SCH ×5 (03:30→20:12)
[2019-06-19] MEDS: TRAMADOL HCL 50 MG TABLET PO PRN (03:47)
[2019-06-19 04:00] VITALS: BP 136/84
[2019-06-19] MEDS: VANCOMYCIN 0.75 GM in IV D5W 250 ML IV SCH ×2 (05:42→16:19)
--- NOTE | 2019-06-19 06:47 | NUR ---
RN CLOSING NOTE PATIENT A/O X 3 PATIENT IS NON VERBAL BUT ANSWER YES AND NO . [facility] PER MD ORDERS . NO SOB , NO ACUTE RESPIRATORY DISTRESS . 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 PATIENT HAS A RIGHT FEMORAL TRIPLE LUMEN. WITH NS 75 ML/HR PATENT AND INTACT. PATIENT HAS A BERGER. PATIENT HAS GLUCERNA 1.2 25 ML BED LOCKED AND LOWEST POSITION CALL LIGHT WITH IN REACH ALL SAFETY MEASURE IMPLEMENTED PER HOSPITAL POLICY
[2019-06-19 06:51] LABS: BASOPHILS % (AUTO) 0.3 % (0.0-2.0); EOSINOPHILS % (AUTO) 0.3 % (0.0-6.0); HEMATOCRIT 26 % (33-45); HEMOGLOBIN 8.6 g/dL (11.5-14.8); LYMPHOCYTES # (AUTO) 0.7 /CMM (0.8-4.8); LYMPHOCYTES % (AUTO) 7.5 % (20.0-44.0); MEAN CORPUSCULAR HGB CONC 33 g/dl (31.0-36.0); MEAN CORPUSCULAR VOLUME 93 fL (82-100); MONOCYTES # (AUTO) 0.6 /CMM (0.1-1.30); MONOCYTES % (AUTO) 6.1 % (2.0-12.0); NEUTROPHILS # (AUTO) 7.8 /CMM (1.8-8.9); NEUTROPHILS % (AUTO) 85.8 % (43.0-81.0); PLATELET COUNT (AUTO) 263 /CMM (150-450); RED BLOOD CELL COUNT(AUTO) 2.81 MIL/uL (4.0-5.2)
[2019-06-19 07:00] LABS: ALBUMIN 1.7 g/dL (3.4-5.0); BILIRUBIN,TOTAL 0.3 mg/dL (0.2-1.0); CALCIUM, SERUM 8.6 mg/dL (8.5-10.1); CREATININE 0.5 mg/dL (0.6-1.3); MAGNESIUM 1.8 mg/dL (1.8-2.4); PHOSPHORUS 3.3 mg/dL (2.5-4.9); POTASSIUM 3.8 mmol/L (3.5-5.1); TOTAL PROTEIN, SERUM 7.5 g/dL (6.4-8.2)
[2019-06-19 08:00] VITALS: BP 124/74
[2019-06-19] MEDS: PANTOPRAZOLE 40 MG VIAL IV SCH (08:01)
[2019-06-19] MEDS: ENOXAPARIN SODIUM 40 MG/0.4 ML DISP.SYRIN SQ SCH (08:04)
--- NOTE | 2019-06-19 10:00 | NUR ---
OBTAINED TELEPHONE CONSENT FROM [facility]STER[facility] FOR SACRUM DEBRIDEMENT.
[2019-06-19 12:00] VITALS: BP 138/62
[2019-06-19] MEDS: HYDROGEL DRESSING 90 GM TUBE TP SCH (13:51)
[2019-06-19 16:00] VITALS: BP 134/69
--- NOTE | 2019-06-19 19:25 | NUR ---
RN NOTE RECEIVED PT IN BED IN SEMI FOLWER'S POSITION. ON MECHANICAL VENTILATOR AND TOLERATING SETTINGS WELL. NO INDICATIONS OF RESPIRATORY DISTRESS OR DISCOMFORT. PT IS ALERT AND ORIENTED X 2-3. ABLE TO NOD TO YES OR NO QUESTIONS. TRACH MID LINE AND IN PLACE. ON TUBE FEEDING RUNNING AT 25ML/HOUR AND TOLERATING WELL. NO GASTRIC RESIDUAL NOTED. PLACEMENT VERIFIED VIA AUSCULATION. CALL LIGHT WITHIN REACH, SAFETY MEASURES IN PLACE. WILL MONITOR.
[2019-06-19 20:00] VITALS: BP 143/68
[2019-06-20] VITALS: BP 148/70
[2019-06-20] MEDS: ALBUTEROL HALF STRENGTH 1.25 MG/3 ML VIAL.NEB NEB SCH ×7 (00:12→23:53)
[2019-06-20] MEDS: IPRATROPIUM NEB FS 0.5 MG/2.5 ML AMPUL.NEB NEB SCH ×7 (00:12→23:53)
[2019-06-20] MEDS: PIPERACILLIN /TAZOBACTAM 3.375 G in IV D5W 100 ML IV SCH ×3 (01:13→17:47)
[2019-06-20 04:00] VITALS: BP 153/85
[2019-06-20 04:14] LABS: CALCIUM, SERUM 8.7 mg/dL (8.5-10.1); CREATININE 0.4 mg/dL (0.6-1.3); POTASSIUM 4.1 mmol/L (3.5-5.1)
[2019-06-20] MEDS: VANCOMYCIN 0.75 GM in IV D5W 250 ML IV SCH (05:15)
[2019-06-20] MEDS: GLUCERNA 1.2 1,000 ML BOTTLE NG PRN (05:21)
--- NOTE | 2019-06-20 07:10 | NUR ---
STOCK DEALER OPENING NOTE RECEIVED BEDSIDE REPORT. PT AWAKE IN BED, NON VERBAL, ABLE TO NOD YES OR NO AND MOUTH WORDS. [facility] V[facility], TOLERATING SETTINGS WELL, RESPIRATIONS EVEN, UNLABORED, NO SIGNS OF RESPIRATORY DISTRESS NOTED. SINUS RHYTHM ON MONITOR. BERGER CATHETER INTACT, PATENT, DRAINING YELLOW URINE. RIGHT FEMORAL TRIPLE LUMEN INTACT, PATENT, SECURED WITH CLEAN DRESSING, NS INFUSING 75CC/HR. GLUCERNA 1.2 INFUSING AT 25 ML/HR, TOLERATING FEEDING WELL. BED LOCKED AND LOWEST POSITION, CALL LIGHT WITHIN REACH.
--- NOTE | 2019-06-20 07:26 | NUR ---
RN NOTE PT IN BED IN SEMI FOLWER'S POSITION. ON MECHANICAL VENTILATOR AND TOLERATING SETTINGS WELL. NO INDICATIONS OF RESPIRATORY DISTRESS OR DISCOMFORT. PT IS ALERT AND ORIENTED X 2-3. ABLE TO NOD TO YES OR NO QUESTIONS. TRACH MID LINE AND IN PLACE. ON TUBE FEEDING RUNNING AT 25ML/HOUR AND TOLERATING WELL. NO GASTRIC RESIDUAL NOTED. PLACEMENT VERIFIED VIA AUSCULATION. CALL LIGHT WITHIN REACH, SAFETY MEASURES IN PLACE. ENDORSED TO MORNING SHIFT FOR CONTINUATION OF CARE.
[2019-06-20 08:00] VITALS: BP 139/71
[2019-06-20 08:06] LABS: PTH, INTACT 29 pg/mL (15-65)
[2019-06-20] MEDS: PANTOPRAZOLE 40 MG VIAL IV SCH (08:36)
[2019-06-20] MEDS: ENOXAPARIN SODIUM 40 MG/0.4 ML DISP.SYRIN SQ SCH (08:38)
[2019-06-20] MEDS: HYDROGEL DRESSING 90 GM TUBE TP SCH (08:44)
--- NOTE | 2019-06-20 10:47 | NUR ---
WOUND CARE CONSULT WOUND CARE RECEIVED CONSULT FOR WOUNDS. WOUND CARE WILL DEFER CONSULT AND TREATMENT PLANS TO PLASTIC SURGICAL TEAM INCLUDING DPM DR PINA WHO ARE ALL CURRENTLY FOLLOWING THIS PATIENT. PATIENT WITH ITALO AT 10, ISOFLEX LOW AIRLOSS SPECIALTY BED CURRENTLY IN USE. ALL PRESSURE ULCER PREVENTION MEASURES ARE NOTED TO BE IN PLACE AT THIS TIME. WILL SEE PRN.
[2019-06-20 11:07] LABS: *SPE A/G RATIO 0.5 (0.7-1.7); *SPE ALBUMIN 2.2 g/dL (2.9-4.4); *SPE ALPHA-1-GLOBULIN 0.3 g/dL (0.0-0.4); *SPE BETA GLOBULIN 1.1 g/dL (0.7-1.3); *SPE GLOBULIN, TOTAL 4.6 g/dL (2.2-3.9); *SPE M-SPIKE Not Observed g/dL (Not Observed); *SPEGAMMA GLOBULIN 2.2 g/dL (0.4-1.8)
[2019-06-20] MEDS: IV NS 0.9% 1,000 ML IV PRN (11:16)
[2019-06-20 12:00] VITALS: BP 144/65
--- NOTE | 2019-06-20 13:40 | NUR ---
RT NOTE: PATIENT RECEIVED WITH #[address] ON PB 840 VENT. VENT ALARMS VERIFIED AND AUDIBLE. SUCTIONED MODERATE-LARGE AMOUNT OF THICK KU SECRETIONS. VENT IS PLUGGED INTO RED OUTLET. AMBU BAG AT [facility].
[2019-06-20 16:00] VITALS: BP 141/64
--- NOTE | 2019-06-20 19:17 | NUR ---
ENDORSED TO NOC SHIFT NURSE
[2019-06-20 20:00] VITALS: BP 144/71
[2019-06-21] VITALS: BP_SYST 133; BP_SYST 149; BP_DIAS 75; BP_DIAS 84
[2019-06-21] MEDS: IV NS 0.9% 1,000 ML IV PRN ×2 (00:58→18:06)
[2019-06-21] MEDS: PIPERACILLIN /TAZOBACTAM 3.375 G in IV D5W 100 ML IV SCH ×3 (01:32→17:55)
[2019-06-21] MEDS: IPRATROPIUM NEB FS 0.5 MG/2.5 ML AMPUL.NEB NEB SCH ×5 (03:13→20:04)
[2019-06-21] MEDS: ALBUTEROL HALF STRENGTH 1.25 MG/3 ML VIAL.NEB NEB SCH ×5 (03:14→20:04)
[2019-06-21 04:00] VITALS: BP 136/75
[2019-06-21] MEDS: GLUCERNA 1.2 1,000 ML BOTTLE NG PRN (04:43)
[2019-06-21 06:25] LABS: BASOPHILS % (AUTO) 0.4 % (0.0-2.0); EOSINOPHILS % (AUTO) 2.7 % (0.0-6.0); HEMATOCRIT 24 % (33-45); HEMOGLOBIN 7.7 g/dL (11.5-14.8); LYMPHOCYTES # (AUTO) 0.5 /CMM (0.8-4.8); LYMPHOCYTES % (AUTO) 8.4 % (20.0-44.0); MEAN CORPUSCULAR HGB CONC 32 g/dl (31.0-36.0); MEAN CORPUSCULAR VOLUME 93 fL (82-100); MONOCYTES # (AUTO) 0.3 /CMM (0.1-1.30); NEUTROPHILS # (AUTO) 4.4 /CMM (1.8-8.9); NEUTROPHILS % (AUTO) 82.5 % (43.0-81.0); PLATELET COUNT (AUTO) 179 /CMM (150-450); RED BLOOD CELL COUNT(AUTO) 2.57 MIL/uL (4.0-5.2); WHITE BLOOD COUNT (AUTO) 5.4 K/uL (4.3-11.0)
--- NOTE | 2019-06-21 06:30 | NUR ---
COMMERCIAL LIGHT FIXTURE ASSEMBLER: NO SIGNIFICANT ELOY DURING THE SHIFT. PT REMAINS ALERT AND AWAKE, ABLE TO FOLLOW SIMPLE COMMANDS SUCH 'BLINK YOUR EYES TWICE" OR NOD HEAD. VENT SETTINGS ORDERED WT NO ACUTE DISTRESS. AFEBRILE. SR ON TELE MONITOR. BP WITHIN PT's BASELINE. GT FEEDING NOW AT 50ML/HR AND TOLERATING WELL. LEFT FEMORAL TLC INTACT AND PATENT RUNNING NS AT 75ML/HR AND ATB THERAPY WT NO S/S OF COMPLICATIONS. F/C PATENT AND INTACT DRAINING YELLOW URINE TO GRAVITY. HOB AT 35 DEGREES, BED IN LOWEST POSITION AND LOCKED, BED ALARM ON, SIDE RAILS UP X3 AND CALL LIGHT WITHIN REACH. WILL ENDORSE TO DAY SHIFT FOR CONTINUITY OF CARE.
[2019-06-21 06:46] LABS: CREATININE 0.4 mg/dL (0.6-1.3); POTASSIUM 3.3 mmol/L (3.5-5.1)
[2019-06-21 08:00] VITALS: BP 159/79
[2019-06-21] MEDS: ENOXAPARIN SODIUM 40 MG/0.4 ML DISP.SYRIN SQ SCH (09:00)
[2019-06-21] MEDS: PANTOPRAZOLE 40 MG VIAL IV SCH (10:09)
[2019-06-21] MEDS: HYDROGEL DRESSING 90 GM TUBE TP SCH (10:10)
[2019-06-21] MEDS ORDERED: POTASSIUM CHLORIDE 20 MEQ POWDER PACKET GT SCH (11:30)
[2019-06-21 12:00] VITALS: BP 155/78
[2019-06-21] MEDS: TRAMADOL HCL 50 MG TABLET PO PRN (12:55)
[2019-06-21 16:00] VITALS: BP 145/74
--- NOTE | 2019-06-21 17:10 | NUR ---
RN OPENING NOTE RECEIVED PT IN BED IN SEMI ADAMSON'S POSITION. PT ON MECHANICAL VENTILATOR AND TOLERATING SETTINGS WELL. TRACH MID LINE AND IN PLACE. RESPIRATIONS EVEN AND UNLABORED. NO INDICATIONS OF RESPIRATORY DISTRESS. NO INDICATIONS OF PAIN OR DISCOMFORT. ON TELE MONITOR SINUS RHTHYM. PT ABLE TO OPEN EYES AND NOD HEAD TO MAKE NEEDS KNOWN, BERGER CATHETER PATENT AND IN PLACE DRAINING CLEAR YELLOW URINE. GT WITH GLUCERNA 1.2 RUNNING AT 55ML/HOUR. GT PATENT AND IN PLACE WITH PLACEMENT VERIFIED VIA AUSCULTATION AND FLUSHING WELL. NO GASTRIC RESIDUAL NOTED. WITH IV FLUIDS RUNNING AT 75ML/HOUR VIA LEFT FEMORAL CATHETER. SITE NOTED WITHOUT COMPLICATIONS. CALL LIGHT WITHIN REACH, SAFETY MEASURES IN PLACE. WILL MONITOR PT.
[2019-06-21 20:00] VITALS: BP 135/68
[2019-06-22] VITALS (14 sets, daily range): BP systolic 134–153; BP diastolic 68–87
[2019-06-22] MEDS: ALBUTEROL HALF STRENGTH 1.25 MG/3 ML VIAL.NEB NEB SCH ×7 (00:29→23:07)
[2019-06-22] MEDS: IPRATROPIUM NEB FS 0.5 MG/2.5 ML AMPUL.NEB NEB SCH ×7 (00:29→23:07)
[2019-06-22] MEDS: PIPERACILLIN /TAZOBACTAM 3.375 G in IV D5W 100 ML IV SCH ×3 (01:01→17:14)
[2019-06-22] MEDS: GLUCERNA 1.2 1,000 ML BOTTLE NG PRN (01:36)
--- NOTE | 2019-06-22 06:42 | NUR ---
RN CLOSING NOTE PT AWAKE IN BED IN SEMI ADAMSON'S POSITION. PT ABLE TO MAKE NEEDS KNOWN BY MOUTHING WORDS AND NODDING HEAD. PT ON MECHANICAL VENTILATOR AND TOLERATING SETTINGS WELL. RESPIRATIONS EVEN AND UNLABORED. NO INDICATIONS OF DISTRESS OR DISCOMFORT AT THIS TIME. WITH IV FLUIDS RUNNING VIA LEFT FEMORAL TRIPLE LUMEN CATHETER. SITE WITHOUT SIGNS OF INFILTRATION OR INFECTION. ON TUBE FEEDING GLUCERNA 1.2 RUNNING AT 55ML/HOUR VIA PEG TUBE PER RD. NO GASTRIC RESIDUAL NOTED. BERGER CATHETER PATENT AND IN PLACE DRAINING CLEAR YELLOW URINE VIA GRAVITY. CALL LIGHT WITHIN REACH, SAFETY MEASURES IN PLACE. WILL ENDORSE TO MORNING SHIFT FOR CONTINUATION OF CARE.
[2019-06-22 06:48] LABS: BASOPHILS % (AUTO) 0.4 % (0.0-2.0); EOSINOPHILS % (AUTO) 4.3 % (0.0-6.0); HEMATOCRIT 22 % (33-45); LYMPHOCYTES # (AUTO) 0.4 /CMM (0.8-4.8); LYMPHOCYTES % (AUTO) 7.6 % (20.0-44.0); MEAN CORPUSCULAR HGB CONC 32 g/dl (31.0-36.0); MEAN CORPUSCULAR VOLUME 93 fL (82-100); MONOCYTES # (AUTO) 0.3 /CMM (0.1-1.30); MONOCYTES % (AUTO) 5.7 % (2.0-12.0); NEUTROPHILS # (AUTO) 4.3 /CMM (1.8-8.9); PLATELET COUNT (AUTO) 160 /CMM (150-450); RED BLOOD CELL COUNT(AUTO) 2.33 MIL/uL (4.0-5.2); WHITE BLOOD COUNT (AUTO) 5.2 K/uL (4.3-11.0)
[2019-06-22 06:58] LABS: CALCIUM, SERUM 7.2 mg/dL (8.5-10.1); CREATININE 0.3 mg/dL (0.6-1.3); MAGNESIUM 1.5 mg/dL (1.8-2.4); PHOSPHORUS 2.4 mg/dL (2.5-4.9); POTASSIUM 3.4 mmol/L (3.5-5.1)
[2019-06-22 07:00] LABS: HEMOGLOBIN 6.9 g/dL (11.5-14.8)
--- NOTE | 2019-06-22 07:08 | NUR ---
RN NOTE RECEIVED ALERT FOR CRITICAL LAB VALUE (HGB 6.9). PAGED STEAM SHOVEL OILER. Addendum: 06/22/19 at 0709 by RENATE HAYDEN RN ENDORSED TO MORNING RN TO FOLLOW UP CRITICAL LAB.
--- NOTE | 2019-06-22 07:15 | NUR ---
TWO WAY RADIO TECHNICIAN OPENING NOTE RECEIVED REPORT FROM PM NURSE. PATIENT IN BED IN SEMI ADAMSON'S POSITION. ON MECHANICAL VENTILATOR AND TOLERATING SETTINGS WELL. TRACH MID LINE AND IN PLACE. RESPIRATIONS EVEN AND UNLABORED. NO SOB NO RESPIRATORY DISTRESS NOTED AT THIS TIME. NO INDICATIONS OF PAIN OR DISCOMFORT. ON TELE MONITOR SINUS RHYTHM HR 96 .ABLE TO OPEN EYES AND NOD HEAD TO MAKE SIMPLE YES/NO QUESTIONS.BERGER CATHETER DRAINING CLEAR YELLOW URINE. GT WITH GLUCERNA 1.2 RUNNING AT 55ML/HOUR. G TUBE PLACEMENT VERIFIED VIA AUSCULTATION AND FLUSHING WELL. WITH IV FLUIDS RUNNING AT 75ML/HOUR VIA LEFT FEMORAL CATHETER. SITE NOTED WITHOUT COMPLICATIONS. PATIENT HAS LOW H/H .PAGED TO ELECTRIC ARC FURNACE OPERATOR SHRE.AWAITING CALL BACK.CALL LIGHT WITHIN REACH.SAFETY AND ASPIRATION MEASURES IN PLACE.BED IS LOW AND IN LOCKED POSITION.BED ALARM ON.SRX3.WILL CONTINUE TO MONITOR.
--- NOTE | 2019-06-22 07:34 | NUR ---
SOCIAL SCIENCE ANALYST NOTE RECEIVED CALL FROM PROCESS PROJECT ENGINEER TIMBO .MADE AWARE H/H LEVEL.GOT NEW ORDER FOR TRANSFUSE 1 UNIT PRBC,STOOL FOR OB.HOLD LOVENOX.WILL CONTINUE TO MONITOR.
[2019-06-22] MEDS: PANTOPRAZOLE 40 MG VIAL IV SCH (08:01)
[2019-06-22] MEDS: HYDROGEL DRESSING 90 GM TUBE TP SCH (08:02)
--- NOTE | 2019-06-22 08:45 | NUR ---
MEDICAL EQUIPMENT REPAIRER NOTE RECEIVED CONSENT FOR BLOOD TRANSFUSION FROM RAZ POWER OF RECEPTIONIST/TELEPHONE OPERATOR AND SHE IS FRIEND OF THE PATIENT.PATIENT DONT HAVE ANY FAMILY MEMBER PER HER.WILL CONTINUE TO MONITOR.
[2019-06-22] MEDS ORDERED: POTASSIUM CHLORIDE 20 MEQ TAB.PRT.SR PO ONE (09:00)
[2019-06-22] MEDS ORDERED: MAGNESIUM OXIDE 400 MG TABLET PO SCH (09:00)
[2019-06-22] MEDS ORDERED: NEUTRA PHOS 1 POWD.PACKET PO ONE (09:00)
[2019-06-22] MEDS ORDERED: POTASSIUM CHLORIDE 20 MEQ POWDER PACKET GT ONE (09:30)
[2019-06-22] MEDS: TRAMADOL HCL 50 MG TABLET PO PRN (09:34)
[2019-06-22 10:06] LABS: BAND % (MANUAL) 1 % (0.0-5.0); EOSINOPHILS % (MANUAL) 5 % (0-4); LYMPHOCYTES % (MANUAL) 4 % (16-48); MONOCYTES % (MANUAL) 6 % (0-11.0); NEUTROPHILS % (MANUAL) 84 (42-76)
[2019-06-22] MEDS ORDERED: MAGNESIUM OXIDE 400 MG TABLET PO ONE (12:05)
[2019-06-22] MEDS: IV NS 0.9% 1,000 ML IV PRN (14:07)
--- NOTE | 2019-06-22 19:22 | NUR ---
LOZENGE MAKER NOTE PATIENT S/P 1 PRBC TRANSFUSION.ALERT.MANAGER LAN NEGRETTE MADE AWARE TO DO MED RECON.VITAL SIGNS STABLE.IV LINE IS INTACT AND PATENT.ENDORSE TO PM NURSE FOR ELOY.
[2019-06-22 21:17] LABS: HEMOGLOBIN 8.8 g/dL (11.5-14.8)
[2019-06-23] VITALS: BP 136/71
[2019-06-23] MEDS: PIPERACILLIN /TAZOBACTAM 3.375 G in IV D5W 100 ML IV SCH ×3 (01:41→17:02)
[2019-06-23] MEDS: IV NS 0.9% 1,000 ML IV PRN (01:41)
[2019-06-23] MEDS: IPRATROPIUM NEB FS 0.5 MG/2.5 ML AMPUL.NEB NEB SCH ×6 (03:05→23:54)
[2019-06-23] MEDS: ALBUTEROL HALF STRENGTH 1.25 MG/3 ML VIAL.NEB NEB SCH ×6 (03:05→23:54)
[2019-06-23 04:00] VITALS: BP 134/76
[2019-06-23] MEDS: GLUCERNA 1.2 1,000 ML BOTTLE NG PRN (06:02)
[2019-06-23 06:42] LABS: BASOPHILS % (AUTO) 0.2 % (0.0-2.0); EOSINOPHILS % (AUTO) 3.4 % (0.0-6.0); HEMATOCRIT 30 % (33-45); HEMOGLOBIN 9.7 g/dL (11.5-14.8); LYMPHOCYTES # (AUTO) 0.5 /CMM (0.8-4.8); LYMPHOCYTES % (AUTO) 7.7 % (20.0-44.0); MEAN CORPUSCULAR HGB CONC 33 g/dl (31.0-36.0); MEAN CORPUSCULAR VOLUME 92 fL (82-100); MONOCYTES # (AUTO) 0.4 /CMM (0.1-1.30); MONOCYTES % (AUTO) 6.1 % (2.0-12.0); NEUTROPHILS # (AUTO) 5.7 /CMM (1.8-8.9); NEUTROPHILS % (AUTO) 82.6 % (43.0-81.0); PLATELET COUNT (AUTO) 173 /CMM (150-450); RED BLOOD CELL COUNT(AUTO) 3.22 MIL/uL (4.0-5.2); WHITE BLOOD COUNT (AUTO) 6.9 K/uL (4.3-11.0)
[2019-06-23 07:04] LABS: CALCIUM, SERUM 8.1 mg/dL (8.5-10.1); CREATININE 0.2 mg/dL (0.6-1.3); MAGNESIUM 1.7 mg/dL (1.8-2.4); PHOSPHORUS 2.7 mg/dL (2.5-4.9); POTASSIUM 4.5 mmol/L (3.5-5.1)
[2019-06-23 08:00] VITALS: BP 154/82
--- NOTE | 2019-06-23 08:00 | NUR ---
GOLF CART REPAIRER NOTE PATIENT IN BED , ALL NEEDS ATTENDED WITH TRACH TO VENT SETTING ORDERED TRACH SUCTION WITH A YELLOW SECRETION NOTED, WITH G TUBE FEEDING ORDERED ,KEEP HOB ELEVATED AT ALL TIME, LEFT TLC IN PLACED AND FLUSHED WELL , ON IVF ORDERED, BED IN LOWEST AND LOCKED POSITION , WILL CONT TO MONITOR
[2019-06-23] MEDS: PANTOPRAZOLE 40 MG VIAL IV SCH (08:05)
[2019-06-23] MEDS: HYDROGEL DRESSING 90 GM TUBE TP SCH (08:05)
--- NOTE | 2019-06-23 11:00 | NUR ---
LANGUAGE ASST NOTE TURN REPOSITION , ALL NEEDS ATTENDED, KEEP CLEAN DRY
[2019-06-23] MEDS: Magnesium 1GM/D5W 100ML PREMIX 100 ML IV SCH ×2 (11:04→11:57)
[2019-06-23 12:00] VITALS: BP 179/83
[2019-06-23] MEDS ORDERED: TRAMADOL HCL 50 MG TABLET GT PRN (12:00)
[2019-06-23] MEDS: TRAMADOL HCL 50 MG TABLET PO PRN (12:54)
--- NOTE | 2019-06-23 13:06 | NUR ---
DEPARTMENT HEAD JUNIOR COLLEGE NOTE SEEN BY RICHARD NG SPORTS DEVELOPMENT OFFICER AWARE THAT EARLIER BP154/82 AND LOW URINE OUTPUT AT THIS TIME, NO NEW ORDER GIVEN JUST TO MONITOR
--- NOTE | 2019-06-23 13:09 | NUR ---
VICE PRESIDENT EDUCATION NOTE C\O PAIN BP 179/83 SAT 100% ,ULTRAM 50 MG VIA G TUBE GIVEN WILL MONITOR
[2019-06-23 16:00] VITALS: BP 124/62
--- NOTE | 2019-06-23 16:00 | NUR ---
telegraphic typewriter installer note trach and oral care done ,suction done rt at bedside .all needs attended will cont on ivf as ordered and atb , bed in lowest and locked position , will cont to monitor
[2019-06-23] MEDS: FERROUS SULFATE UDC 300 MG/5 ML UDC GT SCH (16:23)
[2019-06-23] MEDS: METOPROLOL TARTRATE 25 MG TABLET GT SCH (16:24)
[2019-06-23] MEDS: PROSOURCE / PROSTAT (PYXIS) 30 ML UDC GT SCH (16:27)
--- NOTE | 2019-06-23 17:25 | NUR ---
RT NOTE RECEIVED PATIENT ON MECHANICAL VENT WITH ORDERED SETTINGS. ALARMS ON AND AUDIBLE WITH VENT PLUGGED IN TO RED OUTLET. AMBU BAG AND BACK UP TRACH BY THE BEDSIDE. TRACH TUBE IN PLACE, PATENT, AND SECURED WITH TRACH TIE. NO DISTRESS AT THIS TIME.
--- NOTE | 2019-06-23 18:27 | NUR ---
JOINT FINISHER NOTE WITH TRACH TO VENT SETTING ORDERED, TRACH SUCTION WITH MOD AMT OF SECRETION NOTED , ON IVF ORDERED, WITH G TUBE FEEDING ORDERED KEEP HOB ELEVATED AT ALL TIME ,BED IN LOWEST AND LOCKED POSITION , TURN REPOSITION Q2 HOUR , WILL CONT TO MONITOR
--- NOTE | 2019-06-23 19:25 | NUR ---
TELE/RN notes patient received, awake, A/O x2, mouth words, denies any pain. In no acute distress, breathing even and unlabored. No SOB. Trach to vent with prescribed settings. NSR on the monitor. Fierro cath in place, patent, draining clear, yellow color urine. Left femoral TLC in place, patent. IV fluids running as ordered. G-tube in place, patent, connected to feeding as ordered. Safety maintained, bed at the lowest locked positioned. Call light within reach. Will continue to monitor as per plan of care.
[2019-06-23 20:00] VITALS: BP 148/88
[2019-06-24] VITALS (7 sets, daily range): BP systolic 108–152; BP diastolic 68–82
[2019-06-24] MEDS: PIPERACILLIN /TAZOBACTAM 3.375 G in IV D5W 100 ML IV SCH (02:29)
[2019-06-24] MEDS: ALBUTEROL HALF STRENGTH 1.25 MG/3 ML VIAL.NEB NEB SCH ×6 (03:25→22:53)
[2019-06-24] MEDS: IPRATROPIUM NEB FS 0.5 MG/2.5 ML AMPUL.NEB NEB SCH ×6 (03:25→22:53)
[2019-06-24] MEDS: GLUCERNA 1.2 1,000 ML BOTTLE NG PRN (04:33)
[2019-06-24 06:53] LABS: BASOPHILS % (AUTO) 0.5 % (0.0-2.0); HEMATOCRIT 27 % (33-45); HEMOGLOBIN 9.1 g/dL (11.5-14.8); LYMPHOCYTES # (AUTO) 0.5 /CMM (0.8-4.8); LYMPHOCYTES % (AUTO) 9.3 % (20.0-44.0); MEAN CORPUSCULAR HGB CONC 33 g/dl (31.0-36.0); MEAN CORPUSCULAR VOLUME 91 fL (82-100); MONOCYTES # (AUTO) 0.3 /CMM (0.1-1.30); MONOCYTES % (AUTO) 5.6 % (2.0-12.0); NEUTROPHILS # (AUTO) 4.6 /CMM (1.8-8.9); NEUTROPHILS % (AUTO) 80.6 % (43.0-81.0); PLATELET COUNT (AUTO) 235 /CMM (150-450); WHITE BLOOD COUNT (AUTO) 5.7 K/uL (4.3-11.0)
--- NOTE | 2019-06-24 07:00 | NUR ---
bicycle racer Opening Notes Patient endorsed from third shift lieutenant. No s/s of distress. Arousable to touch and sound. Patient is vented with portex 7 trach. Vent setting 14 A/C, TV 400mL, no respiratory distress noted. VSS. No BM per third shift lieutenant. Bowel sounds present. Patient has contractures. Sacral pressure sore seen on AM assessment measuring 1.5x1.5 with no tunneling. Wound base is pink to beefy red. Skin over spine is pink non blanchable. Wound care done as prescribed. Bed in lowest position, call light within reach, all measures taken to ensure client safety.
[2019-06-24 07:08] LABS: CALCIUM, SERUM 8.1 mg/dL (8.5-10.1); CREATININE 0.4 mg/dL (0.6-1.3); POTASSIUM 3.7 mmol/L (3.5-5.1)
--- NOTE | 2019-06-24 07:19 | NUR ---
107- TELE/RN notes patient remained in stable condition, No significant change in condition noted over night, slept well. Now awake, , A/O x2, mouth words, denies any pain. In no acute distress, breathing even and unlabored. No SOB. Trach to vent with prescribed settings. NSR on the monitor. Fierro cath in place, patent, draining well with clear yellow color urine. Left femoral TLC in place, patent. IV fluids running as ordered. G-tube in place, patent, connected to feeding as ordered, Tolerated well. No residual. HOB semi castro. Needs attendant. Due meds given as ordered, treatments rendered, tolerated well. Kept clean and dry. Safety maintained, bed at the lowest locked positioned. Call light within reach. Will endorse to AM shift nurse for ELOY.
[2019-06-24] MEDS: MULTIVIT W/MINERALS 1 TAB TABLET GT SCH (09:45)
[2019-06-24] MEDS: PANTOPRAZOLE 40 MG VIAL IV SCH (09:45)
[2019-06-24] MEDS: FERROUS SULFATE UDC 300 MG/5 ML UDC GT SCH ×2 (09:45→17:00)
[2019-06-24] MEDS: ASCORBIC ACID 500 MG TABLET GT SCH (09:45)
[2019-06-24] MEDS: PROSOURCE / PROSTAT (PYXIS) 30 ML UDC GT SCH ×2 (09:47→17:00)
[2019-06-24] MEDS: ZINC SULFATE 220 MG CAPSULE GT SCH (09:47)
[2019-06-24] MEDS: METOPROLOL TARTRATE 25 MG TABLET GT SCH ×2 (09:47→17:00)
[2019-06-24] MEDS: HYDROGEL DRESSING 90 GM TUBE TP SCH (09:48)
--- NOTE | 2019-06-24 19:55 | NUR ---
RN NOTES RECEIVED PATIENT, VENT SETTINGS TOLERATING WELL, ASPIRATION PRECAUTION EMPHASIZED. TRACH AT MIDLINE SECURED AND INTACT, NO SIGNS OF ACUTE DISTRESS NOTED, ALL NEEDS ANTICIPATED, IV ACCESS INTACT AND PATENT, GT INTACT AND PATENT FEEDING TOLERATING WELL, SAFETY PRECAUTION IN PLACE, WILL CONTINUE TO MONITOR ACCORDINGLY.
--- NOTE | 2019-06-24 21:01 | NUR ---
supply technician Closing Notes supply technician Opening Notes Patient hand off completed with Vielka RN accepting assignment. No s/s of distress. Arousable to touch and sound. Patient is vented with portex 7 trach. Vent setting 14 A/C, TV 400mL, no respiratory distress noted. Patient suctioned Q2H and oxygenated per hospital protocol. VSS. BM x1, patient cleaned and bathed fully before handing off to awake overnight monitor. Fresh wound care provided to sacrum and spine skin concerns. Bowel sounds present. Patient has contractures. Sacral pressure sore seen on AM assessment measuring 1.5x1.5 with no tunneling. This was cleaned with NS, covered with hydrogel, and cared for per hospital protocol. Wound base is pink to beefy red. Skin over spine is pink non blanchable. Bed in lowest position, call light within reach, all measures taken to ensure client safety.
[2019-06-25 00:23] VITALS: BP 146/65
[2019-06-25] MEDS: ALBUTEROL HALF STRENGTH 1.25 MG/3 ML VIAL.NEB NEB SCH ×6 (03:36→23:24)
[2019-06-25] MEDS: IPRATROPIUM NEB FS 0.5 MG/2.5 ML AMPUL.NEB NEB SCH ×6 (03:36→23:24)
[2019-06-25 04:30] VITALS: BP 154/74
[2019-06-25] MEDS: IV NS 0.9% 1,000 ML IV PRN ×2 (05:27→19:35)
[2019-06-25] MEDS: GLUCERNA 1.2 1,000 ML BOTTLE NG PRN (06:03)
--- NOTE | 2019-06-25 07:20 | NUR ---
RN NOTES ALL NEEDS ATTENDED AND MET, ABLE TO REST AND SLEPT AT INTERVALS, VENT SETTINGS TOLERATING WELL, GT INTACT AND PATENT FEEDING TOLERATING WELL, REPOSITIONED FOR COMFORT, ASPIRATION PRECAUTION EMPHASIZED, SAFETY MEASURES IN PLACE, CALL LIGHT WITHIN EASY REACH, BED IN LOW LOCKED POSITION, ENDORSED TO AM NURSE FOR CONTINUITY OF CARE.
--- NOTE | 2019-06-25 07:35 | NUR ---
MOTOR COACH OPERATOR NOTES RECEIVED PATIENT IN BED, ALERT AND VERBALLY RESPONSIVE. HOB ELEVATED. NO SOB OBSERVED. ON MECHANICAL VENTILATION ORDERED LLOYD WELL. LEFT FEMORAL TRIPLE LUMEN INTACT AND PATENT. GT INTACT AND PATENT LLOYD FEEDING WELL ORDERED. NO RESIDUAL NOTED. BED IN LOWEST POSITION, LOCKED. BED ALARM ON. CALL LIGHT WITHIN REACH. BED SIDERAILS UPX2. FREQUENT VISUAL CHECK DONE.
[2019-06-25 07:38] LABS: BASOPHILS % (AUTO) 0.2 % (0.0-2.0); EOSINOPHILS % (AUTO) 2.8 % (0.0-6.0); HEMATOCRIT 27 % (33-45); HEMOGLOBIN 9.2 g/dL (11.5-14.8); LYMPHOCYTES # (AUTO) 0.6 /CMM (0.8-4.8); MEAN CORPUSCULAR HGB CONC 34 g/dl (31.0-36.0); MEAN CORPUSCULAR VOLUME 91 fL (82-100); MONOCYTES # (AUTO) 0.3 /CMM (0.1-1.30); MONOCYTES % (AUTO) 6.2 % (2.0-12.0); NEUTROPHILS # (AUTO) 4.2 /CMM (1.8-8.9); NEUTROPHILS % (AUTO) 79.8 % (43.0-81.0); PLATELET COUNT (AUTO) 268 /CMM (150-450); RED BLOOD CELL COUNT(AUTO) 2.98 MIL/uL (4.0-5.2); WHITE BLOOD COUNT (AUTO) 5.2 K/uL (4.3-11.0)
[2019-06-25 07:57] LABS: CALCIUM, SERUM 8.4 mg/dL (8.5-10.1); CREATININE 0.4 mg/dL (0.6-1.3); POTASSIUM 3.9 mmol/L (3.5-5.1)
[2019-06-25 08:00] VITALS: BP 151/70
[2019-06-25] MEDS: FERROUS SULFATE UDC 300 MG/5 ML UDC GT SCH ×2 (08:44→16:07)
[2019-06-25] MEDS: ZINC SULFATE 220 MG CAPSULE GT SCH (08:44)
[2019-06-25] MEDS: PANTOPRAZOLE 40 MG VIAL IV SCH (08:44)
[2019-06-25] MEDS: PROSOURCE / PROSTAT (PYXIS) 30 ML UDC GT SCH ×2 (08:44→16:07)
[2019-06-25] MEDS: MULTIVIT W/MINERALS 1 TAB TABLET GT SCH (08:44)
[2019-06-25] MEDS: ASCORBIC ACID 500 MG TABLET GT SCH (08:44)
[2019-06-25] MEDS: METOPROLOL TARTRATE 25 MG TABLET GT SCH ×2 (08:45→16:07)
[2019-06-25] MEDS: HYDROGEL DRESSING 90 GM TUBE TP SCH (08:47)
[2019-06-25 12:00] VITALS: BP 158/64
[2019-06-25 16:00] VITALS: BP 155/63
--- NOTE | 2019-06-25 18:57 | NUR ---
BUSINESS MANAGEMENT INTERN NOTES RECEIVED PATIENT IN BED, ALERT AND ORIENTED X3. VERBALLY RESPONSIVE. HOB ELEVATED. NO S/S OF RESPIRATORY DISTRESS. ON MECHANICAL VENTILATION ORDERED LLOYD WELL WITH PORTEX 7 INTACT ON AC 14 14, TV 400, FI02 OF 40%. SUCTIONED PATIENT, OBTAINED SMALL THICK SECRETIONS DURING THE SHIFT, MOD AMOUNT. LEFT FEMORAL TRIPLE LUMEN INTACT AND PATENT INFUSING NS @ 75 ML/HR LLOYD WELL. GT INTACT AND PATENT LLOYD FEEDING WELL, FLUCERNA 1.5 @ 55ML/HR. NO RESIDUAL NOTED. BED IN LOWEST POSITION, LOCKED. BED ALARM ON. CALL LIGHT WITHIN REACH. BED SIDERAILS UPX2. FREQUENT VISUAL CHECK DONE. IN NO APPARENT DISTRESS.
--- NOTE | 2019-06-25 19:30 | NUR ---
RN OPENING NOTE RECEIVED PATIENT IN BED, VERBALLY RESPONSIVE. HOB ELEVATED. NO S/S OF RESPIRATORY DISTRESS. ON MECHANICAL VENTILATION ORDERED TOLERATING WELL WITH PORTEX 7 INTACT ON AC 14 14, TV 400, FI02 OF 40%. SUCTIONED PATIENT,. LEFT FEMORAL TRIPLE LUMEN INTACT AND PATENT INFUSING NS @ 75 ML/HR LLOYD WELL. GT INTACT AND PATENT LLOYD FEEDING WELL, GLUCERNA 1.5 @ 55ML/HR. NO RESIDUAL NOTED. BED IN LOWEST POSITION, LOCKED. BED ALARM ON. CALL LIGHT WITHIN REACH. BED SIDE RAILS UPX2. WILL CONTINUE TO MONITOR
[2019-06-25 20:00] VITALS: BP 157/74
--- NOTE | 2019-06-25 20:10 | NUR ---
RT NOTE Pt Rec'd trached via portex [address] [facility] vent on AC mode. Pt shows no signs or resp distress or sob. pt sx'd for thick mod amt of pale yellow secretions. Alarms are set and audible. Vent plugged into red outlet. ambu bag bedside. Will continue to monitor closely. Addendum: 06/25/19 at 2013 by FRANCESCO ANG RT Amended: Links added.
[2019-06-26] VITALS: BP 152/76
[2019-06-26] MEDS: ALBUTEROL HALF STRENGTH 1.25 MG/3 ML VIAL.NEB NEB SCH ×4 (03:51→14:56)
[2019-06-26] MEDS: IPRATROPIUM NEB FS 0.5 MG/2.5 ML AMPUL.NEB NEB SCH ×4 (03:51→14:56)
[2019-06-26 04:00] VITALS: BP 144/78
[2019-06-26] MEDS: GLUCERNA 1.2 1,000 ML BOTTLE NG PRN (06:29)
[2019-06-26 06:33] LABS: BASOPHILS % (AUTO) 0.3 % (0.0-2.0); EOSINOPHILS % (AUTO) 3.3 % (0.0-6.0); HEMATOCRIT 28 % (33-45); HEMOGLOBIN 9.1 g/dL (11.5-14.8); LYMPHOCYTES # (AUTO) 0.6 /CMM (0.8-4.8); LYMPHOCYTES % (AUTO) 13.5 % (20.0-44.0); MEAN CORPUSCULAR HGB CONC 33 g/dl (31.0-36.0); MEAN CORPUSCULAR VOLUME 92 fL (82-100); MONOCYTES # (AUTO) 0.5 /CMM (0.1-1.30); MONOCYTES % (AUTO) 10.6 % (2.0-12.0); NEUTROPHILS # (AUTO) 3.3 /CMM (1.8-8.9); NEUTROPHILS % (AUTO) 72.3 % (43.0-81.0); PLATELET COUNT (AUTO) 294 /CMM (150-450); RED BLOOD CELL COUNT(AUTO) 2.99 MIL/uL (4.0-5.2); WHITE BLOOD COUNT (AUTO) 4.6 K/uL (4.3-11.0)
[2019-06-26 07:26] LABS: CALCIUM, SERUM 8.6 mg/dL (8.5-10.1); CREATININE 0.3 mg/dL (0.6-1.3)
[2019-06-26 08:00] VITALS: BP 176/79
[2019-06-26] MEDS: IV NS 0.9% 1,000 ML IV PRN (08:33)
[2019-06-26] MEDS: FERROUS SULFATE UDC 300 MG/5 ML UDC GT SCH (08:35)
[2019-06-26] MEDS: METOPROLOL TARTRATE 25 MG TABLET GT SCH (08:35)
[2019-06-26] MEDS: ZINC SULFATE 220 MG CAPSULE GT SCH (08:35)
[2019-06-26] MEDS: ASCORBIC ACID 500 MG TABLET GT SCH (08:36)
[2019-06-26] MEDS: MULTIVIT W/MINERALS 1 TAB TABLET GT SCH (08:36)
[2019-06-26] MEDS: PANTOPRAZOLE 40 MG VIAL IV SCH (08:36)
[2019-06-26] MEDS: HYDROGEL DRESSING 90 GM TUBE TP SCH (08:36)
[2019-06-26] MEDS: PROSOURCE / PROSTAT (PYXIS) 30 ML UDC GT SCH (08:38)
[2019-06-26 12:00] VITALS: BP 167/68
--- NOTE | 2019-06-26 15:55 | NUR ---
FRAUD EXAMINER NOTES PATIENT IS A/OX3 AWAKE. READY FOR DISCHARGED. NO BELONGINGS. PATIENT ON BERGER CATHETER LEFT FEMORAL TRIPLE LUMEN . PER FACILITY PATIENT CAME WITH THE CENTRAL LINE AND THE NURSE WANT TO KEEP THE LINE. LINE IS NOT REMOVED.
== END 2019-06-26 16:10 | DRG 853 ==
LOC: ER 04:38 → MEDSG1 05:27 → TELE1 15:25
PROVIDERS: ADMIT Nurse Practitioner Acute Care; ATTEND Nurse Practitioner Acute Care
PROC: 5A1955Z Respiratory Ventilation, Greater than 96 Consecutive Hours (ICD-10-PCS; principal; 2019-06-18)
PROC: 0KBP0ZZ Excision of Left Hip Muscle, Open Approach (ICD-10-PCS; 2019-06-19)
PROC: 0KBN0ZZ Excision of Right Hip Muscle, Open Approach (ICD-10-PCS; 2019-06-19)
PROC: 30233N0 Transfusion of Autologous Red Blood Cells into Peripheral Vein, Percutaneous Approach (ICD-10-PCS; 2019-06-22)
DX: A41.9 Sepsis, unspecified organism (principal); L89.154 Pressure ulcer of sacral region, stage 4; E43 Unspecified severe protein-calorie malnutrition; G93.41 Metabolic encephalopathy; J18.9 Pneumonia, unspecified organism; J96.21 Acute and chronic respiratory failure with hypoxia; J96.22 Acute and chronic respiratory failure with hypercapnia; D68.59 Other primary thrombophilia; J44.0 Chronic obstructive pulmonary disease with (acute) lower respiratory infection; N17.9 Acute kidney failure, unspecified; Z99.11 Dependence on respirator [ventilator] status; R64 Cachexia; E11.9 Type 2 diabetes mellitus without complications; M06.9 Rheumatoid arthritis, unspecified; Z93.1 Gastrostomy status; E83.51 Hypocalcemia; D63.8 Anemia in other chronic diseases classified elsewhere; R13.10 Dysphagia, unspecified; M19.90 Unspecified osteoarthritis, unspecified site; E87.5 Hyperkalemia; I10 Essential (primary) hypertension; L97.519 Non-pressure chronic ulcer of other part of right foot with unspecified severity; E86.9 Volume depletion, unspecified; E11.621 Type 2 diabetes mellitus with foot ulcer; M20.41 Other hammer toe(s) (acquired), right foot; M20.42 Other hammer toe(s) (acquired), left foot; Z79.4 Long term (current) use of insulin; H91.90 Unspecified hearing loss, unspecified ear; Z79.899 Other long term (current) drug therapy; Z79.51 Long term (current) use of inhaled steroids; M62.562 Muscle wasting and atrophy, not elsewhere classified, left lower leg; M62.561 Muscle wasting and atrophy, not elsewhere classified, right lower leg
CPT/HCPCS: 31720; 36415; 36600; 71045-TC; 80048-TC; 80053-TC; 80076-TC; 80202-TC; 81000-TC; 82550-TC; 82803-TC; 83605-TC; 83735-TC; 83970; 84100-TC; 84155; 84165; 84484-TC; 85025-TC; 85027-TC; 85730-TC; 86850-TC; 86921-TC; 87040-TC; 87070-TC; 87081-TC; 87086-TC; 94002-TC; 94003-TC; 94760-TC; 94762-TC; 94799-TC; A4217; A6248; A6253; A6403; C9113; G0378; J1650; J2543; J3370; J3475; J7030; J7050; J7060; P9016-BL

== ENCOUNTER 2019-07-03 03:17 | Inpatient (IN) | payer MEDICARE, MEDICAID ==
[~2019-07-03] VITALS: Ht 165.1 cm; Wt 38.1 kg
[~2019-07-03 03:17] MED LIST changes: +CHLO118L6 TP; -DOXY100T2 GT; -FLUC100T8 PO; -LEVO500T2 GT; +METO25TA20 GT
[2019-07-03] MEDS ORDERED: IV NS 0.9% 1,000 ML BAG IV ONE (03:30)
--- NOTE | 2019-07-03 03:33 | NUR ---
Patient came to er bed 8 bib ra from [facility] for rapid heart rate. Patient has a tracheostomy, G-tube, and a grant catheter. Patient has contracture of the hands. AAOX0. no sob. Breathing evenly and unlabored. Connected to cardiac monitoring
--- NOTE | 2019-07-03 03:41 | NUR ---
RT pt received in er. placed on vent on settings from facility on AC 14, 400, 40%. trached with portex 7. spo2 at 99%. suctioned with small, thick yellow secretions. ambubag at head of bed. hob at 30 degrees. will continue to monitor pt.
[2019-07-03] MEDS ORDERED: IBUPROFEN 600 MG TABLET PO ONE ×2 (03:44→04:00)
[2019-07-03 03:45] LABS: APPEARANCE,URINE Cloudy (CLEAR); BILIRUBIN,URINE Negative (NEGATIVE); BLOOD, URINE Large Ery/uL (NEGATIVE); COLOR,URINE Yellow (YELLOW); KETONES,URINE Negative (NEGATIVE); LEUKOCYTE ESTERASE ,URINE Small (NEGATIVE); NITRITE, URINE Positive (NEGATIVE); PH,URINE 5.5 (5.0-8.0); PROTEIN,URINE >=300 mg/dl (NEGATIVE); UGLUCOSE Negative (NEGATIVE); UROBILINOGEN,URINE 0.2 EU/dL (0.2)
--- NOTE | 2019-07-03 03:45 | NUR ---
Patient's vent settings are at A/C 14, 400 Tidal volume, 0 PEEP, and FiO2 40%.
[2019-07-03 03:47] LABS: BASOPHILS % (AUTO) 0.2 % (0.0-2.0); EOSINOPHILS % (AUTO) 0.2 % (0.0-6.0); HEMATOCRIT 32 % (33-45); HEMOGLOBIN 10.5 g/dL (11.5-14.8); LYMPHOCYTES # (AUTO) 0.4 /CMM (0.8-4.8); LYMPHOCYTES % (AUTO) 3.3 % (20.0-44.0); MEAN CORPUSCULAR HGB CONC 33 g/dl (31.0-36.0); MEAN CORPUSCULAR VOLUME 92 fL (82-100); MONOCYTES # (AUTO) 0.6 /CMM (0.1-1.30); MONOCYTES % (AUTO) 4.9 % (2.0-12.0); NEUTROPHILS # (AUTO) 10.7 /CMM (1.8-8.9); NEUTROPHILS % (AUTO) 91.4 % (43.0-81.0); PLATELET COUNT (AUTO) 446 /CMM (150-450); RED BLOOD CELL COUNT(AUTO) 3.51 MIL/uL (4.0-5.2); WHITE BLOOD COUNT (AUTO) 11.7 K/uL (4.3-11.0)
[2019-07-03] MEDS ORDERED: IBUPROFEN SUSP 100 MG/5 ML UDC ONE (03:47)
--- NOTE | 2019-07-03 03:49 | NUR ---
Blood drawn and sent to lab for testing.
[2019-07-03 03:53] LABS: CALCIUM, SERUM 9.4 mg/dL (8.5-10.1); CARBON DIOXIDE 39 mmol/L (21-32); CHLORIDE 97 mmol/L (98-107); CREATININE 0.5 mg/dL (0.6-1.3); GLUCOSE 152 mg/dL (74-106); POTASSIUM 4.8 mmol/L (3.5-5.1); SODIUM SERUM 137 mmol/L (136-145); UREA NITROGEN, BLOOD 28 mg/dL (7-18)
--- NOTE | 2019-07-03 03:55 | NUR ---
Xray at bedside.
--- NOTE | 2019-07-03 03:56 | NUR ---
ausPatient's G-tube checked if in place via auscultating w/ piston syringe.
[2019-07-03] MEDS: IBUPROFEN SUSP 100 MG/5 ML UDC PO ONE (04:00)
[2019-07-03 04:05] LABS: ALANINE AMINOTRANSFERASE 19 U/L (12-78); ALBUMIN 2.2 g/dL (3.4-5.0); ALKALINE PHOSPHATASE 133 U/L (46-116); ASPARTATE AMINOTRANSFERASE 20 U/L (15-37); B-TYPE NATRIURETIC PEPTIDE 4862 PG/ML (0-125); BILIRUBIN,DIRECT 0.1 mg/dL (0.0-0.2); BILIRUBIN,TOTAL 0.2 mg/dL (0.2-1.0); TOTAL PROTEIN, SERUM 9.1 g/dL (6.4-8.2)
[2019-07-03] MEDS ORDERED: VANCOMYCIN 1 GM VIAL ONE (04:20)
[2019-07-03] MEDS ORDERED: PIPERACILLIN /TAZOBACTAM 3.375 G VIAL IV ONE (04:20)
[2019-07-03 04:29] LABS: BACTERIA,URINE Moderate /HPF (None Seen); RBC,URINE 21-50 /HPF (0-2); SQUAMOUS EPITHELIAL CELL,UR Few /HPF (None Seen)
[2019-07-03] MEDS ORDERED: VANCOMYCIN 1 GM in IV D5W 250 ML IV ONE (04:30)
[2019-07-03] MEDS ORDERED: PIPERACILLIN /TAZOBACTAM 3.375 G in IV D5W 50 ML IV ONE (04:30)
[2019-07-03 05:00] VITALS: BP 106/57
[2019-07-03] MEDS ORDERED: ONDANSETRON HCL/PF 4 MG/2 ML VIAL IVP PRN (05:00)
[2019-07-03] MEDS ORDERED: Z GUARD REMEDY 2 OZ OINT TP PRN (05:00)
--- NOTE | 2019-07-03 05:00 | NUR ---
EP SPECIALISTICT SUPPORT TECHNICIANS NOTE RECEIVED PATIENT VIA GURNEY WITH TRUCKSMITH AND WRECKER OPERATOR AND RT. TRANSFERRED PATIENT TO BED. PATIENT IS NONVERBAL, TRACKS WITH EYES. ON MECHANICAL VENTILATOR. SETTINGS INCLUDE PORTEX #7, AC14, TV400, PEEP 0, FI02 40. NO RESP DISTRESS NOTED. NO S/S PAIN AT THIS TIME. EXTERNAL TELE MONITOR READS SINUS TACH HR 120. IN NO APPARENT DISTRESS. GTUBE IS PRESENT, SLIGHT REDNESS AROUND SITE, ASPIRATED, 10 ML RESIDUAL, FLUSHED WITH 60ML WITH NO RESISTANCE, NO FEEDING AT THIS TIME. BERGER CATHETER IS PRESENT, DRAINING TO GRAVITY, URINE IS YELLOW AND CLOUDY. VITAL SIGNS TAKEN BY ENERGY TECHNICIAN, BELONGING LIST ALSO COMPLETED. INITIAL PHYSICAL ASSESSMENT COMPLETED AT THIS TIME. SKIN ASSESSMENT COMPLETED, PICTURES TAKEN AND PLACED IN CHART. BED IS LOW AN DLOCKED, HOB ELEVATED IN HIGH FOWLERS, SIDE RIALS UP X2, BED ALARM ON. EXTREMITIES OFF LOADED, ON [employer] MATTRESS. CALL LIGHT WITHIN REACH. WILL CONTINUE TO MONITOR.
--- NOTE | 2019-07-03 05:12 | NUR ---
Report given to Candi NG for ELOY.
--- NOTE | 2019-07-03 05:59 | NUR ---
RT NOTE. PT RECEIVED TRACHED ON [facility] VENT ON CHARTED SETTINGS AC 14 400 40% NO PEEP. NO SIGNS OF RESP DISTRESS NOTED AT THIS TIME. AIRWAY PATENT AND SECURED. CELERY PACKER DONE. PT SUCTIONED. ALARMS SET AND AUDIBLE. AMBUBAG AT BEDSIDE. VENT CONNECTED TO RED OUTLET. WILL CONT TO MONITOR. SPO2 100% HR 110-114. MINIMAL SECRETIONS WHEN SUCTIONED.
[2019-07-03] MEDS ORDERED: FEE PK DOSING 1 MIN EA MC ONE (06:45)
[2019-07-03] MEDS ORDERED: ACET-2605 GT (06:58)
[2019-07-03] MEDS ORDERED: TYL2T GT (06:58)
--- NOTE | 2019-07-03 07:12 | NUR ---
INTERACTIVE MEDIA MARKETING STRATEGIST CLOSING NOTE PATIENT IN BED. PATIENT IS NONVERBAL, TRACKS WITH EYES. ON MECHANICAL VENTILATOR. SETTINGS INCLUDE PORTEX #7, AC14, TV400, PEEP 0, FI02 40. NO RESP DISTRESS NOTED. NO S/S PAIN AT THIS TIME. EXTERNAL TELE MONITOR READS SINUS TACH HR 120. NO DISTRESS. GTUBE IS MAINTAINED, , NO FEEDING AT THIS TIME. BERGER CATHETER IS MAINTAINED, DRAINING TO GRAVITY, URINE IS YELLOW AND CLOUDY. . BED IS LOW AND LOCKED, HOB ELEVATED IN HIGH FOWLERS, SIDE RIALS UP X2, BED ALARM ON. EXTREMITIES OFF LOADED, ON KCI MATTRESS. CALL LIGHT WITHIN REACH. WILL ENDORSE TO NEXT SHIFT
--- NOTE | 2019-07-03 07:55 | NUR ---
rn opening notes Patient received on a portex 7, ventilator with AC settings. Fierro present and is draining at this time and is on a telemetry monitoring. L femoral 3 lumen picc line and RFA 18 present. Bed at the lowest setting, call light within reach, side rails up x2.
[2019-07-03 08:00] VITALS: BP 106/60
[2019-07-03] MEDS: ENOXAPARIN SODIUM 40 MG/0.4 ML DISP.SYRIN SQ SCH (08:53)
[2019-07-03] MEDS: IV NS 0.9% 1,000 ML IV PRN (08:56)
[2019-07-03] MEDS: HYDROGEL DRESSING 90 GM TUBE TP SCH (09:44)
--- NOTE | 2019-07-03 11:39 | NUR ---
PT RCVD TRACH'D ON MECHANICAL VENT WITH CHARTED SETTINGS. SX DONE. PT TRACH IS PATENT AND SECURE. VENT ALARMS ARE ON, SET, AND AUDIBLE. VENT PLUGGED INTO RED OUTLET. AMBU BAG AT BEDSIDE. NO SOB NOTED. Addendum: 07/03/19 at 1140 by DEBBIE SIMPSON RT Amended: Links added.
[2019-07-03 12:00] VITALS: BP 120/50
[2019-07-03] MEDS: PIPERACILLIN /TAZOBACTAM 3.375 G in IV D5W 100 ML IV SCH ×2 (12:21→21:02)
[2019-07-03 16:00] VITALS: BP 107/52
[2019-07-03] MEDS: VANCOMYCIN 0.75 GM in IV D5W 250 ML IV SCH (16:16)
--- NOTE | 2019-07-03 18:46 | NUR ---
rn closing notes Patient remains on a ventilator, no sob noted, grant remains in place and is draining. G tube present but no feeding is on at this time. Dietary aware. Consent for Serial debridement of sacrum signed by 2 RN's with phone verification of primary ocular care technician of patient. Bed at the lowest setting, call light within reach, side rails up x2. Will give report to NOC RN for ELOY bedside.
--- NOTE | 2019-07-03 19:20 | NUR ---
SUGARCANE PLANTER OPENING NOTES RECEIVED PATIENT FROM MORNING SHIFT, AWAKE AND NON-VERBAL. TRACHEOSTOMY INTACT. BREATHING REGULAR AND UNLABORED ON MECHANICAL VENTILATION WITH CURRENT SETTINGS TOLERATING WELL, LATEST SPO2 99%. RIGHT FOREARM G18 IV LINE INTACT AND PATENT, FLUSHING WELL WITH NO BLEEDING OR S/S OF INFILTRATION OBSERVED. BERGER CATH PATENT DRAINING CLEAR YELLOW URINE WITH MODERATE AMOUNT ON BAG. ON CARDIAC MONITORING WITH SINUS TACHYCARDIA AT 110bpm. GTUBE INTACT WITH NO RESIDUAL ASPIRATED. SEEN WITH FACIAL GRIMACING AND CRYING. BED LOW AND LOCKED ON HIGH FOWLERS POSITION, CALL LIGHT IN REACH. WILL CONTINUE TO MONITOR.
[2019-07-03] MEDS: MORPHINE SULFATE INJ 2 MG/ML DISP.SYRIN IV PRN (19:32)
--- NOTE | 2019-07-03 19:35 | NUR ---
WIND TURBINE ERECTOR NOTES SEEN WITH FACIAL GRIMACING AND CRYING, MORPHINE 2MG GIVEN VIA IV PUSH. NON-PHARMACOLOGICAL INTERVENTIONS PROVIDED. VITAL SIGNS WNL. WILL CONTINUE TO MONITOR.
[2019-07-03 20:28] VITALS: BP 122/63
[2019-07-03] MEDS ORDERED: GLUCERNA 1.2 1,000 ML BOTTLE NG PRN (21:00)
[2019-07-03 22:00] VITALS: BP 122/63
--- NOTE | 2019-07-03 23:00 | NUR ---
SENIOR OPERATOR NOTES STARTED ON GLUCERNA 1.2 GTUBE FEEDING, TOLERATING WELL AT 35CC/HR. NO RESIDUAL ASPIRATED. ON ASPIRATION PRECAUTIONS.
[2019-07-04] VITALS: BP 109/64
[2019-07-04] MEDS: VANCOMYCIN 0.75 GM in IV D5W 250 ML IV SCH (04:09)
[2019-07-04] MEDS: PIPERACILLIN /TAZOBACTAM 3.375 G in IV D5W 100 ML IV SCH ×3 (05:20→22:27)
--- NOTE | 2019-07-04 06:32 | NUR ---
BAGGER MEAT CLOSING NOTES PATIENT IN BED ALERT AND ORIENTED X 1-2, ABLE TO MOUTH WORDS. TRACHEOSTOMY INTACT. BREATHING REGULAR AND UNLABORED ON MECHANICAL VENTILATION. RIGHT FOREARM G18 IV LINE PATENT AND INFUSING WELL WITH. BERGER CATH PATENT DRAINING CLEAR YELLOW URINE WITH 400CC OUTPUT. MAINTAINED ON CARDIAC MONITORING WITH SINUS TACHYCARDIA AT 104bpm. GTUBE INTACT WITH NO RESIDUAL ASPIRATED. CURRENT TUBE FEEDING TOLERATING WELL WITH NO EPISODE OF NAUSEA/VOMITING NOTED. ON ASPIRATION PRECAUTIONS. WOUND TREATMENTS PROVIDED. BED LOW AND LOCKED ON SEMI FOWLERS POSITION, CALL LIGHT IN REACH. WILL ENDORSE TO MORNING SHIFT FOR ELOY.
[2019-07-04 06:34] LABS: BASOPHILS % (AUTO) 0.3 % (0.0-2.0); EOSINOPHILS % (AUTO) 1.8 % (0.0-6.0); HEMATOCRIT 27 % (33-45); HEMOGLOBIN 8.9 g/dL (11.5-14.8); LYMPHOCYTES # (AUTO) 0.3 /CMM (0.8-4.8); LYMPHOCYTES % (AUTO) 4.3 % (20.0-44.0); MEAN CORPUSCULAR HGB CONC 33 g/dl (31.0-36.0); MEAN CORPUSCULAR VOLUME 91 fL (82-100); MONOCYTES # (AUTO) 0.5 /CMM (0.1-1.30); MONOCYTES % (AUTO) 5.8 % (2.0-12.0); NEUTROPHILS % (AUTO) 87.8 % (43.0-81.0); PLATELET COUNT (AUTO) 367 /CMM (150-450); RED BLOOD CELL COUNT(AUTO) 2.97 MIL/uL (4.0-5.2)
[2019-07-04 07:00] LABS: ALBUMIN 1.8 g/dL (3.4-5.0); BILIRUBIN,TOTAL 0.3 mg/dL (0.2-1.0); CALCIUM, SERUM 8.8 mg/dL (8.5-10.1); CREATININE 0.5 mg/dL (0.6-1.3); PHOSPHORUS 3.2 mg/dL (2.5-4.9); POTASSIUM 4.1 mmol/L (3.5-5.1); TOTAL PROTEIN, SERUM 7.8 g/dL (6.4-8.2)
--- NOTE | 2019-07-04 07:30 | NUR ---
RN OPENING NOTES RECEIVED PATIENT IN BED, AWAKE AND NON-VERBAL. NOT IN ANY FORM OF DISTRESS. NO S/S OF PAIN OR DISCOMFORT.TRACHEOSTOMY INTACT. BREATHING REGULAR AND UNLABORED ON MECHANICAL VENTILATION WITH CURRENT SETTINGS TOLERATING WELL, LATEST SPO2 99%. IV ACCESS INTACT AND PATENT, FLUSHING WELL WITH NO BLEEDING OR S/S OF INFILTRATION OBSERVED. BERGER CATH PATENT DRAINING CLEAR YELLOW URINE. ON CARDIAC MONITORING WITH SINUS TACHYCARDIA AT 102bpm. GTUBE INTACT WITH 10ML RESIDUAL ASPIRATED. KEPT PATIENT SAFE AND COMFORTABLE. BED IN LOW AND LOCKED POSITION, ON HIGH FOWLERS POSITION, CALL LIGHT IN REACH. WILL CONTINUE TO MONITOR.
[2019-07-04 08:00] VITALS: BP 126/65
[2019-07-04] MEDS ORDERED: ACETAMINOPHEN 325 MG TABLET PO PRN (09:00)
[2019-07-04] MEDS ORDERED: MAGNESIUM HYDROXIDE 30 ML UDC GT PRN (09:00)
[2019-07-04] MEDS ORDERED: GLUCERNA 1.5 1,000 ML BOTTLE GT SCH (09:00)
[2019-07-04] MEDS ORDERED: Medication Not On Formulary EA (Ipratropium/Albuterol Sulfate (Duoneb 2.5-0.5 Mg/3 Ml So IH PRN (09:00)
[2019-07-04] MEDS ORDERED: BISACODYL SUPP (10 MG) 10 MG/SUPP.RECT SUPP.RECT RC PRN (09:00)
[2019-07-04] MEDS ORDERED: ARGININE/GLUTAMINE/CALCIUM BMB 1 EACH POWD.PACK GT SCH (09:00)
[2019-07-04] MEDS ORDERED: INSULIN REGULAR, HUMAN 100 UNIT/ML 3 ML VIAL SQ PRN ×2 (09:00→09:30)
[2019-07-04] MEDS ORDERED: NA PHOS,M-B/NA PHOS,DI-BA 1 EA ENEMA RC PRN (09:00)
[2019-07-04] MEDS ORDERED: TRAMADOL HCL 50 MG TABLET GT PRN (09:00)
[2019-07-04] MEDS: MULTIVIT W/MINERALS 1 TAB TABLET GT SCH (09:09)
[2019-07-04] MEDS: ASCORBIC ACID 500 MG TABLET GT SCH (09:09)
[2019-07-04] MEDS: METOPROLOL TARTRATE 25 MG TABLET GT SCH ×2 (09:09→17:17)
[2019-07-04] MEDS: ZINC SULFATE 220 MG CAPSULE GT SCH (09:10)
[2019-07-04] MEDS: FERROUS SULFATE UDC 300 MG/5 ML UDC GT SCH ×2 (09:10→17:16)
[2019-07-04] MEDS: PANTOPRAZOLE 40 MG/PACK PACK GT SCH ×2 (09:13→17:16)
[2019-07-04] MEDS: HYDROGEL DRESSING 90 GM TUBE TP SCH (09:23)
[2019-07-04] MEDS: ENOXAPARIN SODIUM 40 MG/0.4 ML DISP.SYRIN SQ SCH (09:27)
[2019-07-04] MEDS ORDERED: DEXTROSE 50%-WATER 50 ML DISP.SYRIN IV PRN (09:30)
[2019-07-04] MEDS: IV NS 0.9% 1,000 ML IV PRN (09:30)
[2019-07-04] MEDS ORDERED: IPRATROPIUM NEB FS 0.5 MG/2.5 ML AMPUL.NEB NEB PRN (09:30)
[2019-07-04] MEDS ORDERED: ALBUTEROL FS 2.5 MG/0.5 ML VIAL.NEB NEB PRN (09:30)
[2019-07-04] MEDS: PROSOURCE / PROSTAT (PYXIS) 30 ML UDC GT SCH ×2 (09:39→18:16)
[2019-07-04] MEDS ORDERED: ACETAMINOPHEN 650 MG/20.3 ML UDC GT PRN (10:30)
[2019-07-04] MEDS: BLOOD SUGAR DIAGNOSTIC 1 EACH STRIP IN SCH ×3 (12:45→23:33)
[2019-07-04] MEDS: CHLORHEXIDINE GLUCONATE 4% 118 ML BOTTLE TP SCH (12:45)
[2019-07-04] MEDS ORDERED: Medication Not On Formulary EA (Ipratropium/Albuterol Sulfate (Duoneb 2.5-0.5 Mg/3 Ml So IH SCH (13:30)
[2019-07-04] MEDS: IPRATROPIUM NEB FS 0.5 MG/2.5 ML AMPUL.NEB NEB SCH ×2 (14:00→20:05)
[2019-07-04] MEDS: ALBUTEROL FS 2.5 MG/0.5 ML VIAL.NEB NEB SCH ×2 (14:00→20:05)
[2019-07-04 16:00] VITALS: BP 160/82
--- NOTE | 2019-07-04 16:15 | NUR ---
RT NOTE: PATIENT RECEIVED WITH TRACH ON ESPRIT VENT. ALARMS VERIFIED AND AUDIBLE. SUCTIONED AND LAVAGED LARGE AMOUNTS OF YELLOW/KU SECRETIONS THROUGH OUT THE DAY. AT 1556-PATIENT FOUND WITH COPIOUS AMOUNT OF THIN KU(FEEDING COLOR) SECRETIONS AND NOTIFIED NURSE(RUTH). NURSE ASSESSED PATIENT. NURSE STATES THAT IT IS NOT FEEDING AND WILL KEEP AN EYE ON HER. PATIENT IS RESTING COMFORTABLY AT THIS TIME. OXYGEN SATURATION IS 100% ON 40%FI02. AMBU BAG AT [facility]. I WILL ENDORSE TO INCOMING RT.
--- NOTE | 2019-07-04 19:44 | NUR ---
RN CLOSING NOTES PATIENT IN STABLE CONDITION. ALL NEEDS ATTENDED AND PROVIDED. ALL DUE MEDS GIVEN ORDERED. TURNED AND REPOSITIONED [id number] NEEDED. WOUND CARE RENDERED. KEPT PATIENT SAFE AND COMFORTABLE. BED IN LOW/LOCKED POSITION, SIDERAILS UPX2, CALL LIGHT IN REACH. ENDORSED ACCORDINGLY.
[2019-07-04 20:00] VITALS: BP 108/73
[2019-07-04] MEDS ORDERED: VANCOMYCIN 500 MG in IV D5W 100 ML IV SCH (20:00)
--- NOTE | 2019-07-04 20:00 | NUR ---
TELE/RN OPENING NOTES RECEIVED PATIENT IN BED, HOB ELEVATED, AWAKE, ALERT, USES MOUTH WORDS, GOOD EYE CONTACT, ON MECHANICAL VENT WITH PRESCRIBED SETTING. BERGER DRAINING YELLOW COLOR URINE, WITH GTUBE FEEDING PATENCY CHECK, RESIDUALS CHECK, IV SITE ON RFA GAUGE 18 PATENT, AND EITH LEFT FEMORAL PICC LINE. TO MONITOR FOR ANY CHANGES. BED LOCKED, CALL LIGHTS WITHIN REACH. OFF LOAD EXTREMITIES, REPOSITION AND TURNED. RECEIVED ENDORSEMENT FROM AM RN FOR ELOY.
[2019-07-05 00:01] VITALS: BP 127/60
[2019-07-05 00:16] VITALS: BP 127/60
[2019-07-05] MEDS: ALBUTEROL FS 2.5 MG/0.5 ML VIAL.NEB NEB SCH ×4 (00:57→20:00)
[2019-07-05] MEDS: IPRATROPIUM NEB FS 0.5 MG/2.5 ML AMPUL.NEB NEB SCH ×4 (00:57→20:00)
[2019-07-05 04:09] VITALS: BP 136/64
[2019-07-05] MEDS: PIPERACILLIN /TAZOBACTAM 3.375 G in IV D5W 100 ML IV SCH (04:12)
[2019-07-05 04:15] LABS: LYMPHOCYTES # (AUTO) 0.6 /CMM (0.8-4.8); MEAN CORPUSCULAR HGB CONC 33 g/dl (31.0-36.0); MONOCYTES # (AUTO) 0.5 /CMM (0.1-1.30); WHITE BLOOD COUNT (AUTO) 5.3 K/uL (4.3-11.0)
[2019-07-05 04:19] LABS: BASOPHILS % (AUTO) 0.5 % (0.0-2.0); EOSINOPHILS % (AUTO) 3.8 % (0.0-6.0); HEMATOCRIT 24 % (33-45); HEMOGLOBIN 7.9 g/dL (11.5-14.8); LYMPHOCYTES % (AUTO) 11.3 % (20.0-44.0); MEAN CORPUSCULAR VOLUME 92 fL (82-100); MONOCYTES % (AUTO) 9.1 % (2.0-12.0); NEUTROPHILS % (AUTO) 75.3 % (43.0-81.0); PLATELET COUNT (AUTO) 297 /CMM (150-450); RED BLOOD CELL COUNT(AUTO) 2.64 MIL/uL (4.0-5.2)
[2019-07-05 04:22] LABS: CREATININE 0.4 mg/dL (0.6-1.3); POTASSIUM 4.2 mmol/L (3.5-5.1)
[2019-07-05] MEDS: IV NS 0.9% 1,000 ML IV PRN (04:30)
[2019-07-05] MEDS: BLOOD SUGAR DIAGNOSTIC 1 EACH STRIP IN SCH ×3 (05:00→17:22)
--- NOTE | 2019-07-05 07:00 | NUR ---
[id number]./RN PATIENT SLEPT FEW HOURS, NEED ATTENDED, CALL LIGHTS WTHIN. WILL ENDORSE TO AM RN FOR ELOY.
--- NOTE | 2019-07-05 07:38 | NUR ---
JANITORIAL MAINTENANCE WORKER OPENING NOTES PATIENT IN BED RESTING COMFORTABLY. PATIENT IN NO ACUTE DISTRESS. NO SOB NOTED. PATIENT BREATHING IS EVEN AND UNLABORED. PATIENT ON CARDIAC MONITORING READING SINUS RHYTHM HR 69. PATIENT ON VENT, TOLERATING VENT SETTINGS WELL. PATIENT IV LINE PATENT AND INTACT. PATIENT BERGER CATHETER HANGING TO GRAVITY, DRAINING CLEAR YELLOW URINE. PATIENT HOB BED IS ELEVATED. PATIENT BED ALARM IS ON. SAFETY PRECAUTIONS IN PLACE. PATIENT BED IS LOCKED AND IN LOWEST POSITION. CALL LIGHT WITHIN REACH. WILL CONTINUE TO MONITOR.
--- NOTE | 2019-07-05 07:52 | NUR ---
WOUND CARE CONSULT WOUND CARE RECEIVED CONSULT FOR OPEN SACRAL WOUND. WOUND CARE WILL DEFER CONSULT AND TREATMENT PLANS TO PLASTIC SURGICAL TEAM INCLUDING MICHAEL PINA WHO ARE ALL CURRENTLY FOLLOWING THIS PATIENT. PATIENT WITH ITALO AT 10, ALL PRESSURE ULCER PREVENTION MEASURES ARE NOTED TO BE IN PLACE AT THIS TIME.
[2019-07-05 08:00] VITALS: BP 112/51
[2019-07-05] MEDS: FERROUS SULFATE UDC 300 MG/5 ML UDC GT SCH ×2 (08:05→16:38)
[2019-07-05] MEDS: METOPROLOL TARTRATE 25 MG TABLET GT SCH ×2 (08:05→16:38)
[2019-07-05] MEDS: ZINC SULFATE 220 MG CAPSULE GT SCH (08:06)
[2019-07-05] MEDS: PANTOPRAZOLE 40 MG/PACK PACK GT SCH ×2 (08:06→16:38)
[2019-07-05] MEDS: MULTIVIT W/MINERALS 1 TAB TABLET GT SCH (08:06)
[2019-07-05] MEDS: ASCORBIC ACID 500 MG TABLET GT SCH (08:06)
[2019-07-05] MEDS: ENOXAPARIN SODIUM 40 MG/0.4 ML DISP.SYRIN SQ SCH (08:08)
[2019-07-05] MEDS: HYDROGEL DRESSING 90 GM TUBE TP SCH (08:11)
[2019-07-05] MEDS: PROSOURCE / PROSTAT (PYXIS) 30 ML UDC GT SCH ×2 (09:21→16:38)
--- NOTE | 2019-07-05 09:31 | NUR ---
PAINTER AND GRADER CORK NOTE FOR THE TUBE FEEDING, SPOKE WITH HAN FROM DIETARY. PATIENT IS TO BE ON 1.2 GLUCERNA 55ML/HR X24HR NOT 1.5 GLUCERNA. PER HAN WE DONT HAVE 1.5 GLUCERNA.
[2019-07-05] MEDS: GLUCERNA 1.2 1,000 ML BOTTLE NG PRN (12:23)
[2019-07-05] MEDS: MEROPENEM 1 G in IV NS 0.9% 100 ML IV SCH ×2 (12:25→21:42)
--- NOTE | 2019-07-05 12:29 | NUR ---
DIRECTOR OF PUBLIC RELATIONS NOTE PATIENT BLOOD SUGAR IS 94. NO INSULIN COVERAGE GIVEN PER PROTOCOL.
[2019-07-05 16:00] VITALS: BP 118/60
--- NOTE | 2019-07-05 17:28 | NUR ---
SURVEY RESEARCHER NOTE PATIENT BLOOD SUGAR IS 89. NO INSULIN COVERAGE GIVEN PER PROTOCOL.
--- NOTE | 2019-07-05 18:27 | NUR ---
THEATRICAL AGENT CLOSING NOTES PATIENT IN BED RESTING COMFORTABLY. PATIENT IN NO ACUTE DISTRESS. NO SOB NOTED. PATIENT BREATHING IS EVEN AND UNLABORED. PATIENT ON CARDIAC MONITORING READING SINUS RHYTHM HR 72. PATIENT ON VENT, TOLERATING VENT SETTINGS WELL. PATIENT IV LINE PATENT AND INTACT. PATIENT BERGER CATHETER HANGING TO GRAVITY, DRAINING CLEAR YELLOW URINE. PATIENT KEPT CLEAN, DRY AND COMFORTABLE THROUGHOUT SHIFT. WOUND CARE PROVIDED ORDERED. GTUBE PATENT AND INTACT WITH 5ML RESIDUAL. PATIENT HOB BED IS ELEVATED. PATIENT BED ALARM IS ON. SAFETY PRECAUTIONS IN PLACE. PATIENT BED IS LOCKED AND IN LOWEST POSITION. CALL LIGHT WITHIN REACH. WILL ENDORSE CARE TO PM SHIFT FOR ELOY.
--- NOTE | 2019-07-05 19:15 | NUR ---
VP CUSTOMER SERVICE PM OPENING NOTE BEDSIDE REPORT RECIEVED FROM SELIN NG. PATIENT IN BED. PATIENT IN NO ACUTE DISTRESS. . PATIENT BREATHING IS EVEN AND UNLABORED. PATIENT ON CARDIAC MONITORING READING SINUS RHYTHM. PATIENT ON VENT, TOLERATING VENT SETTINGS WELL. PATIENT BERGER CATHETER HANGING TO GRAVITY, DRAINING CLEAR YELLOW URINE. GTUBE PATENT AND INTACT RUNNING GLUCERNA 1.2 ML AT 55 ML PER HOUR. PATIENT HOB BED IS ELEVATED AT 45 DEGREES. . PATIENT BED ALARM IS ON. SAFETY PRECAUTIONS IN PLACE. PATIENT BED IS LOCKED AND IN LOWEST POSITION. CALL LIGHT WITHIN REACH.
[2019-07-05 20:00] VITALS: BP 156/73
[2019-07-06] VITALS: BP 139/75
[2019-07-06] MEDS: BLOOD SUGAR DIAGNOSTIC 1 EACH STRIP IN SCH ×4 (01:00→18:15)
[2019-07-06] MEDS: IPRATROPIUM NEB FS 0.5 MG/2.5 ML AMPUL.NEB NEB SCH ×4 (01:49→20:05)
[2019-07-06] MEDS: ALBUTEROL FS 2.5 MG/0.5 ML VIAL.NEB NEB SCH ×4 (01:49→20:05)
--- NOTE | 2019-07-06 03:11 | NUR ---
RT NOTE Pt rec'd trached on [facility] vent on AC mode. Pt shows no signs of resp distress or sob. Trach is patent and secured. Sx'd for thick mod amt of pale yellow secretions. Alarms are set and audible. Vent plugged into red outlet. Ambu bag bedside. will continue to monitor closely. Addendum: 07/06/19 at 0313 by FRANCESCO ANG RT Amended: Links added.
[2019-07-06 04:00] VITALS: BP 123/64
[2019-07-06] MEDS: MEROPENEM 1 G in IV NS 0.9% 100 ML IV SCH ×3 (05:34→20:59)
--- NOTE | 2019-07-06 07:20 | NUR ---
Contact isolation initiated for ESBL urine.
[2019-07-06 07:25] LABS: BASOPHILS % (AUTO) 0.5 % (0.0-2.0); EOSINOPHILS % (AUTO) 3.5 % (0.0-6.0); HEMATOCRIT 25 % (33-45); HEMOGLOBIN 8.3 g/dL (11.5-14.8); LYMPHOCYTES # (AUTO) 0.5 /CMM (0.8-4.8); MEAN CORPUSCULAR HGB CONC 33 g/dl (31.0-36.0); MEAN CORPUSCULAR VOLUME 91 fL (82-100); MONOCYTES # (AUTO) 0.4 /CMM (0.1-1.30); MONOCYTES % (AUTO) 8.7 % (2.0-12.0); NEUTROPHILS # (AUTO) 3.4 /CMM (1.8-8.9); NEUTROPHILS % (AUTO) 76.3 % (43.0-81.0); PLATELET COUNT (AUTO) 314 /CMM (150-450); RED BLOOD CELL COUNT(AUTO) 2.78 MIL/uL (4.0-5.2); WHITE BLOOD COUNT (AUTO) 4.4 K/uL (4.3-11.0)
[2019-07-06 07:44] LABS: CALCIUM, SERUM 8.1 mg/dL (8.5-10.1); CREATININE 0.4 mg/dL (0.6-1.3); POTASSIUM 4.1 mmol/L (3.5-5.1)
[2019-07-06 08:00] VITALS: BP 165/89
[2019-07-06] MEDS: MULTIVIT W/MINERALS 1 TAB TABLET GT SCH (09:24)
[2019-07-06] MEDS: METOPROLOL TARTRATE 25 MG TABLET GT SCH ×2 (09:24→16:18)
[2019-07-06] MEDS: PANTOPRAZOLE 40 MG/PACK PACK GT SCH ×2 (09:24→16:18)
[2019-07-06] MEDS: ZINC SULFATE 220 MG CAPSULE GT SCH (09:24)
[2019-07-06] MEDS: FERROUS SULFATE UDC 300 MG/5 ML UDC GT SCH ×2 (09:25→16:18)
[2019-07-06] MEDS: ENOXAPARIN SODIUM 40 MG/0.4 ML DISP.SYRIN SQ SCH (09:25)
[2019-07-06] MEDS: ASCORBIC ACID 500 MG TABLET GT SCH (09:25)
[2019-07-06] MEDS: HYDROGEL DRESSING 90 GM TUBE TP SCH (09:39)
[2019-07-06] MEDS: PROSOURCE / PROSTAT (PYXIS) 30 ML UDC GT SCH ×2 (12:39→16:19)
[2019-07-06] MEDS: GLUCERNA 1.2 1,000 ML BOTTLE NG PRN (14:04)
[2019-07-06] MEDS: IV NS 0.9% 1,000 ML IV PRN (15:23)
[2019-07-06 16:14] VITALS: BP 160/70
--- NOTE | 2019-07-06 17:49 | NUR ---
Received call from Lab: blood culture came back positive for cocci in clusters . Dr. Guerrero notified
--- NOTE | 2019-07-06 18:54 | NUR ---
PATIENT IN BED ALERT AND ORIENTED X 1, ABLE TO SAY YES OR NO. BREATHING REGULAR AND UNLABORED ON MECHANICAL VENTILATION. BERGER CATH PATENT DRAINING CLEAR YELLOW URINE WITH 1300 CC OUTPUT.ON TRIGONOMETRY TEACHER WITH SINUS NS 78. G-TUBE INTACT WITH NO RESIDUAL ASPIRATED. CURRENT TUBE FEEDING AT RATE 55 ML/HR TOLERATING WELL. ON ASPIRATION PRECAUTIONS. WOUND TREATMENTS PROVIDED. BED LOW AND LOCKED ON SEMI FOWLERS POSITION, CALL LIGHT IN REACH. WILL ENDORSE TO NEXT SHIFT FOR ELOY.
--- NOTE | 2019-07-06 19:28 | NUR ---
HERNANDEZ OPEN NOTES RECEIVED PATIENT AWAKE IN BED. A/OX1. NO SIGNS OF DISTRESS OR DISCOMFORT. BREATHING EVEN AND UNLABORED. ON [facility] VENT WITH SETTING ORDERED. ON TELE MONITOR WITH SR 77 NOTED. HAS L FEMORAL PICC WITH NS INFUSING, PATENT AND INTACT. HAS F/C INTACT DRAINING CLEAR YELLOW FLUID. HAS GTUBE INTACT WITH FEEDING RUNNING, TOLERATING WELL. BED IN LOW LOCKED POSITION WITH SIDE RAILS X2. HOB ELEVATED. CALL LIGHT WITHIN REACH. WILL CONTINUE TO MONITOR. Addendum: 07/06/19 at 2100 by MAL HERNANDEZ RN HAS SITTER AT BEDSIDE. Addendum: 07/06/19 at 2101 by MAL HERNANDEZ RN ERROR- NO SITTER AT PATIENT BESIDE
[2019-07-06 20:00] VITALS: BP 138/80
--- NOTE | 2019-07-06 20:08 | NUR ---
RT NOTE PT RECEIVED TRACHED ON MECHANICAL VENTILATION. AMBU BAG/BACK UP TRACH @ BEDSIDE. PORTEX [address] TX GIVEN, NO ADVERSE REACTIONS NOTED. ALARMS ON AND AUDIBLE. VENT PLUGGED TO RED OUTLET. NO DISTRESS NOTED. WILL MONITOR T/O SHIFT. CONT. PULSE OX CONNECTED. Addendum: 07/06/19 at 2009 by DELIO CARDONA RT Amended: Links added.
[2019-07-07] VITALS: BP 163/79
[2019-07-07] MEDS: BLOOD SUGAR DIAGNOSTIC 1 EACH STRIP IN SCH ×4 (00:30→18:54)
[2019-07-07] MEDS: ALBUTEROL FS 2.5 MG/0.5 ML VIAL.NEB NEB SCH ×4 (01:28→19:45)
[2019-07-07] MEDS: IPRATROPIUM NEB FS 0.5 MG/2.5 ML AMPUL.NEB NEB SCH ×4 (01:28→19:45)
[2019-07-07 02:56] VITALS: BP 138/80
[2019-07-07 04:00] VITALS: BP 155/80
[2019-07-07] MEDS: MEROPENEM 1 G in IV NS 0.9% 100 ML IV SCH ×3 (05:17→20:47)
[2019-07-07] MEDS: IV NS 0.9% 1,000 ML IV PRN ×2 (05:17→20:47)
[2019-07-07 06:56] LABS: CALCIUM, SERUM 8.1 mg/dL (8.5-10.1); CREATININE 0.4 mg/dL (0.6-1.3); POTASSIUM 3.9 mmol/L (3.5-5.1)
[2019-07-07 07:00] LABS: BASOPHILS % (AUTO) 0.3 % (0.0-2.0); EOSINOPHILS % (AUTO) 2.6 % (0.0-6.0); HEMATOCRIT 26 % (33-45); HEMOGLOBIN 8.7 g/dL (11.5-14.8); LYMPHOCYTES # (AUTO) 0.4 /CMM (0.8-4.8); LYMPHOCYTES % (AUTO) 6.5 % (20.0-44.0); MEAN CORPUSCULAR HGB CONC 33 g/dl (31.0-36.0); MEAN CORPUSCULAR VOLUME 91 fL (82-100); MONOCYTES # (AUTO) 0.4 /CMM (0.1-1.30); MONOCYTES % (AUTO) 6.2 % (2.0-12.0); NEUTROPHILS # (AUTO) 5.2 /CMM (1.8-8.9); NEUTROPHILS % (AUTO) 84.4 % (43.0-81.0); PLATELET COUNT (AUTO) 317 /CMM (150-450); RED BLOOD CELL COUNT(AUTO) 2.91 MIL/uL (4.0-5.2); WHITE BLOOD COUNT (AUTO) 6.2 K/uL (4.3-11.0)
--- NOTE | 2019-07-07 07:05 | NUR ---
RN CLOSING NOTES PATIENT AWAKE IN BED. A/OX1. NO SIGNS OF DISTRESS OR DISCOMFORT. BREATHING EVEN AND UNLABORED. [facility] WITH SETTING ORDERED. ON TELE MONITOR WITH SR 93 NOTED. HAS L FEMORAL PICC WITH NS INFUSING, PATENT AND INTACT. HAS F/C INTACT DRAINING CLEAR YELLOW FLUID. HAS GTUBE INTACT WITH FEEDING RUNNING, NO RESIDUAL NOTED THROUGHOUT SHIFT. ALL NEEDS MET. NO SIGNIFICANT CHANGES THROUGH THE NIGHT. PATIENT REPOSITIONED Q2H AND PRN. BED IN LOW LOCKED POSITION WITH SIDE RAILS X2. HOB ELEVATED. CALL LIGHT WITHIN REACH. WILL ENDORSE TO AM SHIFT FOR ELOY.
[2019-07-07 07:55] VITALS: BP 151/73
--- NOTE | 2019-07-07 08:00 | NUR ---
TECHNICAL BUSINESS SYSTEMS ANALYST OPENING NOTES Received Patient awake and resting in bed. A/O x 1. VS stable with no acute distress. Breathing even and unlabored on trachea and vent with no respiratory distress. Denies pain. No signs and symptoms of pain. Telemonitor in place reading SR with HR-84. Fierro Cath in place and patent. Gtube in place and patent with Glucerna 1.2 infusing at 55ml/hr. Left Femoral PICC line clean, intact, patent and flushing well with NS infusing at 75ml/hr. Safety precautions in place. Bed locked and set to lowest position with side rails x 2 up. All needs rendered at this time. Call light within reach. Will continue to monitor.
[2019-07-07] MEDS: FERROUS SULFATE UDC 300 MG/5 ML UDC GT SCH ×2 (08:34→16:37)
[2019-07-07] MEDS: ASCORBIC ACID 500 MG TABLET GT SCH (08:35)
[2019-07-07] MEDS: MULTIVIT W/MINERALS 1 TAB TABLET GT SCH (08:35)
[2019-07-07] MEDS: METOPROLOL TARTRATE 25 MG TABLET GT SCH ×2 (08:35→16:37)
[2019-07-07] MEDS: ZINC SULFATE 220 MG CAPSULE GT SCH (08:35)
[2019-07-07] MEDS: PANTOPRAZOLE 40 MG/PACK PACK GT SCH ×2 (08:35→16:38)
[2019-07-07] MEDS: ENOXAPARIN SODIUM 40 MG/0.4 ML DISP.SYRIN SQ SCH (08:36)
[2019-07-07] MEDS: PROSOURCE / PROSTAT (PYXIS) 30 ML UDC GT SCH ×2 (08:39→16:37)
[2019-07-07] MEDS: CHLORHEXIDINE GLUCONATE 4% 118 ML BOTTLE TP SCH (09:09)
[2019-07-07] MEDS: HYDROGEL DRESSING 90 GM TUBE TP SCH (14:18)
[2019-07-07 16:00] VITALS: BP 161/88
--- NOTE | 2019-07-07 16:35 | NUR ---
RT NOTE: RECEIVED TRACH PT ON NOTED ORDERED VENT SETTINGS. NO RESPIRATORY DISTRESS NOTED. TRACH CHECKED SECURE AND PATENT. SXD AND LAVAGED Q ROUND AND NEEDED. TXS GIVEN WITH NO ADVERSE REACTIONS NOTED. TRACH CARE DONE. SPARE TRACH AND AMBU BAG @ BEDSIDE. ALARMS CHECKED ON AND AUDIBLE.
[2019-07-07] MEDS: GLUCERNA 1.2 1,000 ML BOTTLE NG PRN (16:36)
--- NOTE | 2019-07-07 18:53 | NUR ---
PHOTOGRAPHER'S MODEL CLOSING NOTES Received Patient awake and resting in bed. A/O x 1. VS stable with no acute distress. Breathing even and unlabored on trachea and vent with no respiratory distress. Denies pain. No signs and symptoms of pain. Telemonitor in place reading SR with HR-78. Fierro Cath in place and patent. Gtube in place and patent with Glucerna 1.2 infusing at 55ml/hr. Left Femoral PICC line clean, intact, patent and flushing well with NS infusing at 75ml/hr. Safety precautions in place. Bed locked and set to lowest position with side rails x 3 up. All needs rendered at this time. Call light within reach. Will endorse plan of care to oncoming shift.
[2019-07-07 20:10] VITALS: BP 130/55
--- NOTE | 2019-07-07 20:21 | NUR ---
RN OPEN NOTES RECEIVED PATIENT RESTING IN BED, EASILY AROUSABLE. A/OX1. NO SIGNS OF DISTRESS OR DISCOMFORT. BREATHING EVEN AND UNLABORED. [facility] WITH [facility] ORDERED. ON TELE MONITOR WITH SR 80 NOTED. HAS L FEMORAL PICC WITH NS INFUSING, PATENT AND INTACT. HAS F/C INTACT DRAINING CLEAR YELLOW FLUID. HAS GTUBE INTACT WITH FEEDING RUNNING, TOLERATING WELL. BED IN LOW LOCKED POSITION WITH SIDE RAILS X2. HOB ELEVATED. CALL LIGHT WITHIN REACH. WILL CONTINUE TO MONITOR.
[2019-07-08] VITALS (8 sets, daily range): BP systolic 101–177; BP diastolic 56–84
[2019-07-08] MEDS: BLOOD SUGAR DIAGNOSTIC 1 EACH STRIP IN SCH ×4 (00:38→17:47)
[2019-07-08] MEDS: IPRATROPIUM NEB FS 0.5 MG/2.5 ML AMPUL.NEB NEB SCH ×4 (01:38→19:49)
[2019-07-08] MEDS: ALBUTEROL FS 2.5 MG/0.5 ML VIAL.NEB NEB SCH ×4 (01:39→19:55)
[2019-07-08] MEDS: MEROPENEM 1 G in IV NS 0.9% 100 ML IV SCH ×3 (05:43→20:38)
--- NOTE | 2019-07-08 07:02 | NUR ---
RN CLOSING NOTES PATIENT RESTING IN BED, EASILY AROUSABLE. A/OX1. NO SIGNS OF DISTRESS OR DISCOMFORT. BREATHING EVEN AND UNLABORED. ON [facility] VENT WITH SETTING ORDERED. ON TELE MONITOR WITH SR 80 NOTED. HAS L FEMORAL PICC WITH NS INFUSING, PATENT AND INTACT. HAS F/C INTACT DRAINING CLEAR YELLOW FLUID. HAS GTUBE INTACT WITH FEEDING RUNNING, NO RESIDUAL NOTED THROUGHOUT SHIFT. ALL NEEDS MET. NO SIGNIFICANT CHANGES THROUGH THE NIGHT. PATIENT REPOSITIONED Q2H AND PRN. BED IN LOW LOCKED POSITION WITH SIDE RAILS X2. HOB ELEVATED. CALL LIGHT WITHIN REACH. WILL ENDORSE TO AM SHIFT FOR ELOY.
--- NOTE | 2019-07-08 07:30 | NUR ---
Tele/RN Opening note Received patient in bed, able to responds all stimuli. Does no appears pain or discomfort, skin is warm to touch, keep clean/dry, intact picc line dressing and site. No g tube residual noted at this time. Pt is on ventilator, no s/s of respiratory respiratory distress observed. Kept lower position of bed with elevated HOB. Call light within reach, will continue to monitor.
[2019-07-08 07:38] LABS: BASOPHILS % (AUTO) 0.4 % (0.0-2.0); EOSINOPHILS % (AUTO) 2.9 % (0.0-6.0); HEMATOCRIT 30 % (33-45); HEMOGLOBIN 9.6 g/dL (11.5-14.8); LYMPHOCYTES # (AUTO) 0.8 /CMM (0.8-4.8); LYMPHOCYTES % (AUTO) 12.9 % (20.0-44.0); MEAN CORPUSCULAR HGB CONC 32 g/dl (31.0-36.0); MEAN CORPUSCULAR VOLUME 92 fL (82-100); MONOCYTES # (AUTO) 0.5 /CMM (0.1-1.30); MONOCYTES % (AUTO) 8.1 % (2.0-12.0); NEUTROPHILS # (AUTO) 4.5 /CMM (1.8-8.9); NEUTROPHILS % (AUTO) 75.7 % (43.0-81.0); PLATELET COUNT (AUTO) 325 /CMM (150-450); RED BLOOD CELL COUNT(AUTO) 3.23 MIL/uL (4.0-5.2)
[2019-07-08 07:54] LABS: CALCIUM, SERUM 8.5 mg/dL (8.5-10.1); CREATININE 0.4 mg/dL (0.6-1.3); POTASSIUM 4.7 mmol/L (3.5-5.1)
[2019-07-08] MEDS: PANTOPRAZOLE 40 MG/PACK PACK GT SCH ×2 (09:08→16:11)
[2019-07-08] MEDS: ZINC SULFATE 220 MG CAPSULE GT SCH (09:08)
[2019-07-08] MEDS: MULTIVIT W/MINERALS 1 TAB TABLET GT SCH (09:08)
[2019-07-08] MEDS: PROSOURCE / PROSTAT (PYXIS) 30 ML UDC GT SCH ×2 (09:08→16:11)
[2019-07-08] MEDS: ASCORBIC ACID 500 MG TABLET GT SCH (09:08)
[2019-07-08] MEDS: FERROUS SULFATE UDC 300 MG/5 ML UDC GT SCH ×2 (09:09→16:11)
[2019-07-08] MEDS: METOPROLOL TARTRATE 25 MG TABLET GT SCH ×2 (09:09→16:12)
[2019-07-08] MEDS: ENOXAPARIN SODIUM 40 MG/0.4 ML DISP.SYRIN SQ SCH (09:10)
[2019-07-08] MEDS: HYDROGEL DRESSING 90 GM TUBE TP SCH (09:12)
[2019-07-08] MEDS: IV NS 0.9% 1,000 ML IV PRN (11:26)
[2019-07-08] MEDS: GLUCERNA 1.2 1,000 ML BOTTLE NG PRN (11:48)
--- NOTE | 2019-07-08 18:50 | NUR ---
Tele/RN Closing note Patient in bed, sleeping comfortably, does no appears pain or any discomfort. Respiratory even and unlabored with ventilator, provided oral care. Skin is warm touch, kept clean/dry, skin care provided also. Keep lower position of the bed with elevated HOB, call light within reach, will endorse lieutenant shift supervisor.
--- NOTE | 2019-07-08 20:25 | NUR ---
RN NOTES RECEIVED PATIENT IN GOOD AND STABLE CONDITION, ALERT AND AWAKE, NON VERBAL, NODDING HEAD, ABLE TO UNDERSTAND, VENTILATOR DEPENDENT, 100%, NO DISTRESS, PEG TUBE AUSCULTATED, RESIDUAL ZERO, FLUSHED, LEFT FEMORAL PICC LINE TRIPLE LUMEN PATENT, FLUSHED, NS INFUSING, BERGER CATHETER DRAINING. KEPT SAFE, WILL CONTINUE TO MONITOR
[2019-07-09] VITALS: BP_SYST 150; BP_SYST 165; BP_DIAS 72; BP_DIAS 77
[2019-07-09] MEDS: BLOOD SUGAR DIAGNOSTIC 1 EACH STRIP IN SCH ×5 (00:11→23:43)
[2019-07-09] MEDS: ALBUTEROL FS 2.5 MG/0.5 ML VIAL.NEB NEB SCH ×4 (01:53→19:22)
[2019-07-09] MEDS: IPRATROPIUM NEB FS 0.5 MG/2.5 ML AMPUL.NEB NEB SCH ×4 (01:53→19:22)
[2019-07-09] MEDS: IV NS 0.9% 1,000 ML IV PRN ×2 (02:38→14:48)
[2019-07-09 04:00] VITALS: BP 151/68
[2019-07-09] MEDS: MEROPENEM 1 G in IV NS 0.9% 100 ML IV SCH ×3 (04:03→20:15)
[2019-07-09] MEDS: GLUCERNA 1.2 1,000 ML BOTTLE NG PRN (05:31)
--- NOTE | 2019-07-09 06:40 | NUR ---
RN NOTES PM SHIFT ALERT AND AWAKE, NODS HEAD, NO DISTRESS, SPO2 100% ON VENTILATOR, NOT IN APPARENT DISTRESS, MORNING BG 81 MG/DL, ON CONTINUOUS GT FEEDING AT 55 ML/HR, NO RESIDUAL, TOLERATED WELL, SACRAL WOUND CLEANED, COVERED WITH MEPILEX, BONY PROMINENCES PROTECTED WITH MEPILEX, BERGER CATHETER DRAINING WELL, MERREM Q8HRS, CONTINUE WOUND CARE
--- NOTE | 2019-07-09 07:25 | NUR ---
POLICE DISPATCHER OPENING NOTES RECEIVED PT IN BED, ASLEEP. PT TOLERATING CURRENT VENT SETTING WITH NO ACUTE RESPIRATORY DISTRESS NOTED. PT NOT EXHIBITING PAIN OR DISCOMFORT AT THIS TIME. ON TELEMONITORING SR HR 76. IVF NS AT 75ML/HR TO LEFT FEMORAL 3LUMEN, INTACT AND FLUID INFUSING WELL. FC IN PLACE WITH YELLOW URINE IN THE BAG. PT KEPT COMFORTABLE IN BED. CALL LIGHT KEPT WITHIN REACH. PT'S BED IN LOWEST, LOCKED POSITION WITH SRX3. WILL CONTINUE PLAN OF CARE.
[2019-07-09 08:24] VITALS: BP 149/79
[2019-07-09] MEDS: PANTOPRAZOLE 40 MG/PACK PACK GT SCH ×2 (08:46→16:26)
[2019-07-09] MEDS: ZINC SULFATE 220 MG CAPSULE GT SCH (08:46)
[2019-07-09] MEDS: ASCORBIC ACID 500 MG TABLET GT SCH (08:46)
[2019-07-09] MEDS: METOPROLOL TARTRATE 25 MG TABLET GT SCH ×2 (08:47→16:27)
[2019-07-09] MEDS: PROSOURCE / PROSTAT (PYXIS) 30 ML UDC GT SCH ×2 (08:47→16:27)
[2019-07-09] MEDS: FERROUS SULFATE UDC 300 MG/5 ML UDC GT SCH ×2 (08:47→16:26)
[2019-07-09] MEDS: MULTIVIT W/MINERALS 1 TAB TABLET GT SCH (08:47)
[2019-07-09] MEDS: ENOXAPARIN SODIUM 40 MG/0.4 ML DISP.SYRIN SQ SCH (08:48)
[2019-07-09] MEDS: HYDROGEL DRESSING 90 GM TUBE TP SCH (09:07)
[2019-07-09 09:19] LABS: BASOPHILS % (AUTO) 0.7 % (0.0-2.0); EOSINOPHILS % (AUTO) 2.8 % (0.0-6.0); HEMATOCRIT 29 % (33-45); HEMOGLOBIN 9.5 g/dL (11.5-14.8); LYMPHOCYTES # (AUTO) 0.7 /CMM (0.8-4.8); LYMPHOCYTES % (AUTO) 9.6 % (20.0-44.0); MEAN CORPUSCULAR HGB CONC 32 g/dl (31.0-36.0); MEAN CORPUSCULAR VOLUME 91 fL (82-100); MONOCYTES # (AUTO) 0.4 /CMM (0.1-1.30); MONOCYTES % (AUTO) 6.4 % (2.0-12.0); NEUTROPHILS # (AUTO) 5.4 /CMM (1.8-8.9); NEUTROPHILS % (AUTO) 80.5 % (43.0-81.0); PLATELET COUNT (AUTO) 293 /CMM (150-450); WHITE BLOOD COUNT (AUTO) 6.8 K/uL (4.3-11.0)
[2019-07-09 09:33] LABS: CALCIUM, SERUM 8.4 mg/dL (8.5-10.1); CREATININE 0.3 mg/dL (0.6-1.3); POTASSIUM 4.3 mmol/L (3.5-5.1)
[2019-07-09 16:01] VITALS: BP 142/72
--- NOTE | 2019-07-09 17:53 | NUR ---
RT NOTE: PATIENT RECEIVED TRACHED ON MECHANICAL VENT. SUCTIONED AND LAVAGED LARGE AMOUNTS OF THIN KU SECRETIONS. VENT PLUGGED INTO RED OUTLET. AMBU BAG AT [facility].
--- NOTE | 2019-07-09 18:52 | NUR ---
COVERING MACHINE OPERATOR HELPER CLOSING NOTES PT REMAINS IN BED, AWAKE, A/O X1, CAN MOUTH WORDS. PT TOLERATING CURRENT VENT SETTING WITH NO ACUTE RESPIRATORY DISTRESS NOTED. PT NOT EXHIBITING PAIN OR DISCOMFORT AT THIS TIME. ON TELEMONITORING SR HR 90. IVF NS AT 75ML/HR TO LEFT FEMORAL 3LUMEN PICC, INTACT AND FLUID INFUSING WELL. FC IN PLACE WITH YELLOW URINE IN THE BAG, OUTPUT OF 1250ML. ALL NEEDS AND CARE PROVIDED. PT KEPT COMFORTABLE IN BED. CALL LIGHT KEPT WITHIN REACH. PT'S BED IN LOWEST, LOCKED POSITION WITH SRX3. WILL ENDORSE TO INCOMING NIGHT NURSE FOR ELOY.
--- NOTE | 2019-07-09 19:50 | NUR ---
RT NOTE RECEIVED PT ON VENTILATOR PER CURRENT MD ORDERS. TOLERATING VENT SETTINGS WELL. NO INCREASED WOB OR SOB NOTED. ALARMS AUDIBLE AND ON. VENTILATOR PLUGGED INTO RED OUTLET. BACK UP TRACH AND AMBUBAG BY BEDSIDE. WILL CONTINUE TO MONITOR T/O SHIFT. Addendum: 07/09/19 at 1950 by SEGUNDO ALBARRAN RT Amended: Links added.
[2019-07-09 20:35] VITALS: BP 150/73
[2019-07-09 20:50] VITALS: BP 169/92
--- NOTE | 2019-07-09 20:54 | NUR ---
RN NOTES RECEIVED PATIENT, ALERT AND AWAKE, VENTILATOR DEPENDENT, SPO2 98%, NOT IN APPARENT DISTRESS, SUCTIONED, THICK SECRETIONS, BREATHING TX RECEIVED, LEFT FEMORAL PICC LINE PATENT AND INFUSING WELL, PEG TUBE AUSCULTATED, RESIDUAL 0, FLUSHED, PEG SITE SECURED WITH DRESSING, BERGER CATHETER DRAINING WELL,
[2019-07-10] MEDS: IPRATROPIUM NEB FS 0.5 MG/2.5 ML AMPUL.NEB NEB SCH ×4 (00:32→19:19)
[2019-07-10] MEDS: ALBUTEROL FS 2.5 MG/0.5 ML VIAL.NEB NEB SCH ×4 (00:32→19:19)
[2019-07-10 02:00] VITALS: BP 142/81
[2019-07-10] MEDS: IV NS 0.9% 1,000 ML IV PRN ×2 (04:12→20:49)
[2019-07-10] MEDS: MEROPENEM 1 G in IV NS 0.9% 100 ML IV SCH ×3 (04:21→20:49)
[2019-07-10 04:24] VITALS: BP 146/74
[2019-07-10] MEDS: BLOOD SUGAR DIAGNOSTIC 1 EACH STRIP IN SCH ×3 (06:01→18:08)
--- NOTE | 2019-07-10 06:33 | NUR ---
RN NOTES PM SHIFT ALERT AND AWAKE, STABLE ON VENTILATOR, SPO2 AT 98-100%, NO DISTRESS, SUCTIONED PRN, THICK AND YELLOW SECRETION, GT FEEDING TOLERATED WELL, NO VOMITING, NO ABDOMINAL DISTENTION, BERGER CATHETER DRAINING WELL, 1650 ML OUTPUT, ESBL IN URINE CONTACT PRECAUTION MAINTAINED, WOUND CARE PERFORMED, BM X1, CONTINUE HOSPITALIZATION, CONTINUE WOUND CARE, MERREM IVPB Q8HRS.
--- NOTE | 2019-07-10 07:10 | NUR ---
CERTIFIED ART THERAPIST OPENING NOTE RECEIVED BEDSIDE REPORT. PT TOLERATING VENT SETTINGS WELL, NO SIGNS OF RESPIRATORY DISTRESS NOTED. SINUS RHYTHM ON TELE MONITOR. BERGER CATH INTACT, PATENT, DRAINING CLEAR YELLOW URINE. GLUCERNA INFUSING AT 55CC/HR, TOLERATING FEEDING WELL. LEFT FEMORAL TLC INTACT, PATENT, INFUSING NS 75CC/HR. ESBL IN URINE CONTACT PRECAUTION MAINTAINED. BED IN LOW POSITION, LOCKED, CALL LIGHT WITHIN REACH.
[2019-07-10 07:47] LABS: BASOPHILS % (AUTO) 0.4 % (0.0-2.0); EOSINOPHILS % (AUTO) 4.2 % (0.0-6.0); HEMATOCRIT 27 % (33-45); HEMOGLOBIN 8.8 g/dL (11.5-14.8); LYMPHOCYTES # (AUTO) 0.6 /CMM (0.8-4.8); LYMPHOCYTES % (AUTO) 12.2 % (20.0-44.0); MEAN CORPUSCULAR HGB CONC 33 g/dl (31.0-36.0); MEAN CORPUSCULAR VOLUME 91 fL (82-100); MONOCYTES # (AUTO) 0.4 /CMM (0.1-1.30); MONOCYTES % (AUTO) 8.6 % (2.0-12.0); NEUTROPHILS # (AUTO) 3.8 /CMM (1.8-8.9); NEUTROPHILS % (AUTO) 74.6 % (43.0-81.0); PLATELET COUNT (AUTO) 310 /CMM (150-450); RED BLOOD CELL COUNT(AUTO) 2.95 MIL/uL (4.0-5.2)
[2019-07-10 07:58] LABS: CALCIUM, SERUM 8.2 mg/dL (8.5-10.1); CREATININE 0.4 mg/dL (0.6-1.3); POTASSIUM 4.4 mmol/L (3.5-5.1)
[2019-07-10 08:00] VITALS: BP 153/69
[2019-07-10] MEDS: MULTIVIT W/MINERALS 1 TAB TABLET GT SCH (08:23)
[2019-07-10] MEDS: FERROUS SULFATE UDC 300 MG/5 ML UDC GT SCH ×2 (08:23→17:14)
[2019-07-10] MEDS: ASCORBIC ACID 500 MG TABLET GT SCH (08:23)
[2019-07-10] MEDS: PANTOPRAZOLE 40 MG/PACK PACK GT SCH ×2 (08:23→17:14)
[2019-07-10] MEDS: ZINC SULFATE 220 MG CAPSULE GT SCH (08:23)
[2019-07-10] MEDS: METOPROLOL TARTRATE 25 MG TABLET GT SCH ×2 (08:24→17:49)
[2019-07-10] MEDS: PROSOURCE / PROSTAT (PYXIS) 30 ML UDC GT SCH ×2 (08:24→17:49)
[2019-07-10] MEDS: ENOXAPARIN SODIUM 40 MG/0.4 ML DISP.SYRIN SQ SCH (08:25)
[2019-07-10] MEDS: HYDROGEL DRESSING 90 GM TUBE TP SCH (08:26)
[2019-07-10 16:00] VITALS: BP 147/76
--- NOTE | 2019-07-10 18:52 | NUR ---
SCREEN WRITER CLOSING NOTE PT TOLERATING VENT SETTINGS WELL, NO SIGNS OF RESPIRATORY DISTRESS NOTED. SINUS RHYTHM ON TELE MONITOR. BERGER CATH INTACT, PATENT, DRAINING CLEAR YELLOW URINE. GLUCERNA INFUSING AT 55CC/HR, TOLERATING FEEDING WELL. LEFT FEMORAL TLC INTACT, PATENT, INFUSING NS 75CC/HR. ESBL IN URINE CONTACT PRECAUTION MAINTAINED. PROVIDED SAFETY AND COMFORT TO PT THROUGHOUT SHIFT, ALL DUE MEDS GIVEN, TURNED AND REPOSITIONED PT EVERY 2 HOURS. BED IN LOW POSITION, LOCKED, CALL LIGHT WITHIN REACH. WILL ENDORSE TO [facility] SHIFT NURSE.
--- NOTE | 2019-07-10 19:20 | NUR ---
HEALTH AND FITNESS INSTRUCTOR OPENING NOTES Received patient responsive to pain, on vent with settings noted, no SOB/respiratory distress noted at this time. No s/sx of discomfort noted. On tele monitor with NSR noted. With GTF tolerated. Kept on bed clean, dry and comfortable. Call light within easy reach. Will continue to monitor accordingly.
--- NOTE | 2019-07-10 19:48 | NUR ---
RT NOTE RECEIVED PT ON VENTILATOR PER CURRENT MD ORDERS. TOLERATING VENT SETTINGS WELL. NO INCREASED WOB OR SOB NOTED. ALARMS AUDIBLE AND ON. VENTILATOR PLUGGED INTO RED OUTLET. BACK UP TRACH AND AMBUBAG BY BEDSIDE. WILL CONTINUE TO MONITOR T/O SHIFT. Addendum: 07/10/19 at 1948 by SEGUNDO ALBARRAN RT Amended: Links added.
[2019-07-10 20:00] VITALS: BP 149/72
[2019-07-11] VITALS: BP 133/66
[2019-07-11] MEDS: ALBUTEROL FS 2.5 MG/0.5 ML VIAL.NEB NEB SCH ×4 (00:37→20:07)
[2019-07-11] MEDS: IPRATROPIUM NEB FS 0.5 MG/2.5 ML AMPUL.NEB NEB SCH ×4 (00:37→20:07)
[2019-07-11] MEDS: BLOOD SUGAR DIAGNOSTIC 1 EACH STRIP IN SCH ×4 (00:59→17:26)
[2019-07-11] MEDS: GLUCERNA 1.2 1,000 ML BOTTLE NG PRN ×2 (01:30→21:59)
[2019-07-11 04:00] VITALS: BP_SYST 144; BP_SYST 147; BP_DIAS 68
[2019-07-11] MEDS: MEROPENEM 1 G in IV NS 0.9% 100 ML IV SCH ×3 (04:43→20:25)
--- NOTE | 2019-07-11 06:52 | NUR ---
PIPE LINE REPAIRER CLOSING NOTES Patient asleep, responsive to pain. No new unusualities noted. On tele monitor with NSR noted. Kept on bed clean, dry and comfortable. Call light within easy reach. On fall, aspiration, and seizure precautions. Endorsed.
[2019-07-11 07:23] LABS: BASOPHILS % (AUTO) 0.5 % (0.0-2.0); HEMATOCRIT 29 % (33-45); HEMOGLOBIN 9.4 g/dL (11.5-14.8); LYMPHOCYTES # (AUTO) 0.4 /CMM (0.8-4.8); LYMPHOCYTES % (AUTO) 10.4 % (20.0-44.0); MEAN CORPUSCULAR HGB CONC 33 g/dl (31.0-36.0); MEAN CORPUSCULAR VOLUME 91 fL (82-100); MONOCYTES # (AUTO) 0.3 /CMM (0.1-1.30); MONOCYTES % (AUTO) 6.7 % (2.0-12.0); NEUTROPHILS # (AUTO) 3.4 /CMM (1.8-8.9); NEUTROPHILS % (AUTO) 78.4 % (43.0-81.0); PLATELET COUNT (AUTO) 330 /CMM (150-450); RED BLOOD CELL COUNT(AUTO) 3.18 MIL/uL (4.0-5.2); WHITE BLOOD COUNT (AUTO) 4.3 K/uL (4.3-11.0)
[2019-07-11 07:43] LABS: CALCIUM, SERUM 8.5 mg/dL (8.5-10.1); CREATININE 0.4 mg/dL (0.6-1.3); POTASSIUM 4.2 mmol/L (3.5-5.1)
--- NOTE | 2019-07-11 07:45 | NUR ---
RN OPENING NOTES RECEIVED PATIENT IN BED, AWAKE AND NON-VERBAL. NOT IN ANY FORM OF DISTRESS. NO S/S OF PAIN OR DISCOMFORT.TRACHEOSTOMY INTACT. BREATHING REGULAR AND UNLABORED ON MECHANICAL VENTILATION WITH CURRENT SETTINGS TOLERATING WELL, SPO2 98%. IV ACCESS INTACT AND PATENT, FLUSHING WELL, NO S/S OF INFILTRATION OBSERVED. BERGER CATH IN PLACE, DRAINING CLEAR YELLOW URINE. ON CARDIAC MONITORING WITH SINUS TACHYCARDIA AT [address] WITH 10ML RESIDUAL ASPIRATED. KEPT PATIENT SAFE AND COMFORTABLE. BED IN LOW AND LOCKED POSITION, ON HIGH FOWLERS POSITION, CALL LIGHT IN REACH. WILL CONTINUE TO MONITOR ACCORDINGLY.
[2019-07-11 08:00] VITALS: BP 136/60
[2019-07-11] MEDS: ENOXAPARIN SODIUM 40 MG/0.4 ML DISP.SYRIN SQ SCH (08:55)
[2019-07-11] MEDS: FERROUS SULFATE UDC 300 MG/5 ML UDC GT SCH ×2 (08:58→17:25)
[2019-07-11] MEDS: ASCORBIC ACID 500 MG TABLET GT SCH (08:59)
[2019-07-11] MEDS: ZINC SULFATE 220 MG CAPSULE GT SCH (08:59)
[2019-07-11] MEDS: MULTIVIT W/MINERALS 1 TAB TABLET GT SCH (08:59)
[2019-07-11] MEDS: METOPROLOL TARTRATE 25 MG TABLET GT SCH ×2 (09:00→17:26)
[2019-07-11] MEDS: PANTOPRAZOLE 40 MG/PACK PACK GT SCH ×2 (09:00→17:24)
[2019-07-11] MEDS: PROSOURCE / PROSTAT (PYXIS) 30 ML UDC GT SCH ×2 (09:10→17:26)
[2019-07-11] MEDS: HYDROGEL DRESSING 90 GM TUBE TP SCH (09:11)
[2019-07-11] MEDS: CHLORHEXIDINE GLUCONATE 4% 118 ML BOTTLE TP SCH (09:11)
[2019-07-11] MEDS: IV NS 0.9% 1,000 ML IV PRN (14:24)
[2019-07-11 16:00] VITALS: BP 132/66
--- NOTE | 2019-07-11 19:15 | NUR ---
MANDREL PRESS HAND OPENING NOTES Received patient awake, opens eyes, non-verbal. On vent with setting noted, no SOB/respiratory distress noted. On FC with clear yellow urine output noted. With GTF tolerating well. On IV NS @ 75ml/hr with L femoral PICC line, no s/sx of infiltration noted. Kept on bed with KCI mattress on. Kept on bed clean, dry and comfortable. Call light within easy reach. Will continue to monitor accordingly.
--- NOTE | 2019-07-11 19:30 | NUR ---
RN CLOSING NOTES PATIENT IN STABLE CONDITION. ALL NEEDS ATTENDED AND PROVIDED. ALL DUE MEDS GIVEN ORDERED. TURNED AND REPOSITIONED PATIENT EVERY 2HRS AND NEEDED. WOUND CARE RENDERED. SUCTIONED PATIENT TRACH NEEDED. KEPT PATIENT SAFE AND COMFORTABLE. BED IN LOW/LOCKED POSITION. SIDERAILS UP. CALL LIGHT IN REACH. ENDORSED ACCORDINGLY.
[2019-07-11 20:00] VITALS: BP 152/80
[2019-07-11] MEDS: MORPHINE SULFATE INJ 2 MG/ML DISP.SYRIN IV PRN (22:40)
[2019-07-12] VITALS: BP 128/75
[2019-07-12] MEDS: BLOOD SUGAR DIAGNOSTIC 1 EACH STRIP IN SCH ×4 (00:39→17:24)
[2019-07-12] MEDS: ALBUTEROL FS 2.5 MG/0.5 ML VIAL.NEB NEB SCH ×3 (01:02→12:53)
[2019-07-12] MEDS: IPRATROPIUM NEB FS 0.5 MG/2.5 ML AMPUL.NEB NEB SCH ×3 (01:02→12:53)
[2019-07-12 04:00] VITALS: BP 111/60
[2019-07-12] MEDS: MEROPENEM 1 G in IV NS 0.9% 100 ML IV SCH ×2 (04:33→12:08)
[2019-07-12] MEDS: IV NS 0.9% 1,000 ML IV PRN (05:23)
--- NOTE | 2019-07-12 06:51 | NUR ---
FRAME ASSEMBLER CLOSING NOTES Patient asleep, awaken to touch. No s/sx of discomfort noted at this time. On vent, with settings noted. No new unusualities noted. All due meds given as ordered. Afebrile the whole shift. Endorsed.
--- NOTE | 2019-07-12 07:20 | NUR ---
PROJECT FACILITATOR NOTES PATIENT AWAKE IN BED, NO RESPIRATORY DISTRESS NOTED, VENT SETTINGS PRESCRIBED, NO S/S OF ANY DISCOMFORT AT THIS TIME. SENIOR COURT OFFICE ASSISTANT ON SR 83. PATIENT'S SKIN WARM TO TOUCH, REPOSITIONED Q2HRS, IV PICC LINE ON THE LT FEMORAL INTACT AND PATENT IV NS INFUSING AT 75ML/HR, GT INTACT, CHECKED FOR PATENCY AND RESIDUAL, GT FEEDING OF GLUCERNA 55ML/HR, TOLERATING WELL. F/C INTACT AND DRAINING YELLOW URINE. PATIENT'S NEEDS ATTENDED, BED ON LOWEST LOCKED POSITION, CALL LIGHT WITHIN REACH. WILL CONTINUE TO MONITOR.
[2019-07-12 07:49] LABS: CALCIUM, SERUM 8.5 mg/dL (8.5-10.1); CREATININE 0.4 mg/dL (0.6-1.3); MAGNESIUM 2.3 mg/dL (1.8-2.4); PHOSPHORUS 3.3 mg/dL (2.5-4.9); POTASSIUM 5.1 mmol/L (3.5-5.1)
[2019-07-12 08:00] VITALS: BP 134/67
[2019-07-12 08:01] VITALS: BP 165/77
--- NOTE | 2019-07-12 08:10 | NUR ---
RT NOTE PT RCVD TRACH'D ON MECHANICAL VENT WITH CHARTED SETTINGS. PT LLOYD TX WELL. SX DONE. PT TRACH IS PATENT AND SECURE. VENT ALARMS ARE ON, SET, AND AUDIBLE. VENT PLUGGED INTO RED OUTLET. AMBU BAG AT BEDSIDE. NO SOB NOTED. Addendum: 07/12/19 at 1700 by DEBBIE SIMPSON RT Amended: Links added.
[2019-07-12] MEDS: PANTOPRAZOLE 40 MG/PACK PACK GT SCH ×2 (08:25→17:25)
[2019-07-12] MEDS: PROSOURCE / PROSTAT (PYXIS) 30 ML UDC GT SCH ×2 (08:25→17:29)
[2019-07-12] MEDS: FERROUS SULFATE UDC 300 MG/5 ML UDC GT SCH ×2 (08:25→17:25)
[2019-07-12] MEDS: ZINC SULFATE 220 MG CAPSULE GT SCH (08:25)
[2019-07-12] MEDS: MULTIVIT W/MINERALS 1 TAB TABLET GT SCH (08:25)
[2019-07-12] MEDS: ASCORBIC ACID 500 MG TABLET GT SCH (08:25)
[2019-07-12] MEDS: ENOXAPARIN SODIUM 40 MG/0.4 ML DISP.SYRIN SQ SCH (08:26)
[2019-07-12] MEDS: HYDROGEL DRESSING 90 GM TUBE TP SCH (08:33)
[2019-07-12] MEDS: METOPROLOL TARTRATE 25 MG TABLET GT SCH ×2 (08:34→17:25)
[2019-07-12 09:26] LABS: BASOPHILS % (AUTO) 0.4 % (0.0-2.0); EOSINOPHILS % (AUTO) 3.5 % (0.0-6.0); HEMATOCRIT 30 % (33-45); HEMOGLOBIN 9.8 g/dL (11.5-14.8); LYMPHOCYTES # (AUTO) 0.5 /CMM (0.8-4.8); LYMPHOCYTES % (AUTO) 6.9 % (20.0-44.0); MEAN CORPUSCULAR HGB CONC 33 g/dl (31.0-36.0); MEAN CORPUSCULAR VOLUME 91 fL (82-100); MONOCYTES # (AUTO) 0.3 /CMM (0.1-1.30); NEUTROPHILS # (AUTO) 5.8 /CMM (1.8-8.9); NEUTROPHILS % (AUTO) 84.2 % (43.0-81.0); PLATELET COUNT (AUTO) 349 /CMM (150-450); RED BLOOD CELL COUNT(AUTO) 3.32 MIL/uL (4.0-5.2); WHITE BLOOD COUNT (AUTO) 6.8 K/uL (4.3-11.0)
[2019-07-12] MEDS ORDERED: MERO1VIA23 IV (10:06)
[2019-07-12 16:00] VITALS: BP 134/67
[2019-07-12 17:25] VITALS: BP 134/67
[2019-07-12] MEDS: MORPHINE SULFATE INJ 2 MG/ML DISP.SYRIN IV PRN (18:18)
--- NOTE | 2019-07-12 19:00 | NUR ---
HVAC SALES REPRESENTATIVE NOTES PATIENT IN STABLE CONDITION, AWAKE, ALERT AND ORIENTED X1. NO RESPIRATORY DISTRESS, ON MECHANICAL VENTILATOR, PRESCRIBED SETTINGS ORDERED. PATIENT WITH NO S/S OF PAIN AT THIS TIME. PATIENT WITH LT FEMORAL PICC LINE INTACT AND PATENT. PATIENT'S GTUBE INTACT. PATIENT'S F/C INTACT AND DRAINING YELLOW URINE. PATIENT GIVEN DISCHARGED INSTRUCTIONS WELL PARAMEDICS, VERBALIZED UNDERSTANDING. PATIENT WITH NO BELONGINGS. SKIN ASSESSED AND PHOTOS TAKEN AND PUT IN CHART. PATIENT LEFT IN STABLE CONDITION WITH PARAMEDICS VIA DEBBY.
== END 2019-07-12 19:00 | DRG 853 ==
LOC: ER 03:18 → TELE 04:23
PROVIDERS: ADMIT Student in an Organized Health Care Education/Training Program; ATTEND Student in an Organized Health Care Education/Training Program
PROC: 5A1955Z Respiratory Ventilation, Greater than 96 Consecutive Hours (ICD-10-PCS; principal; 2019-07-03)
PROC: 0KBP0ZZ Excision of Left Hip Muscle, Open Approach (ICD-10-PCS; 2019-07-04)
PROC: 0KBN0ZZ Excision of Right Hip Muscle, Open Approach (ICD-10-PCS; 2019-07-04)
DX: A41.9 Sepsis, unspecified organism (principal); L89.154 Pressure ulcer of sacral region, stage 4; E43 Unspecified severe protein-calorie malnutrition; G93.41 Metabolic encephalopathy; N17.0 Acute kidney failure with tubular necrosis; R53.2 Functional quadriplegia; J15.6 Pneumonia due to other Gram-negative bacteria; N39.0 Urinary tract infection, site not specified; J96.10 Chronic respiratory failure, unspecified whether with hypoxia or hypercapnia; I50.32 Chronic diastolic (congestive) heart failure; J98.11 Atelectasis; Z99.11 Dependence on respirator [ventilator] status; D68.69 Other thrombophilia; R64 Cachexia; Z68.1 Body mass index [BMI] 19.9 or less, adult; Z16.12 Extended spectrum beta lactamase (ESBL) resistance; E86.0 Dehydration; R13.10 Dysphagia, unspecified; I11.0 Hypertensive heart disease with heart failure; D63.8 Anemia in other chronic diseases classified elsewhere; M20.42 Other hammer toe(s) (acquired), left foot; M20.41 Other hammer toe(s) (acquired), right foot; M19.90 Unspecified osteoarthritis, unspecified site; Z79.4 Long term (current) use of insulin; M06.9 Rheumatoid arthritis, unspecified; Z93.1 Gastrostomy status; M24.522 Contracture, left elbow; M24.521 Contracture, right elbow; L89.106 Pressure-induced deep tissue damage of unspecified part of back; L90.5 Scar conditions and fibrosis of skin; E11.621 Type 2 diabetes mellitus with foot ulcer; L97.519 Non-pressure chronic ulcer of other part of right foot with unspecified severity; B96.1 Klebsiella pneumoniae [K. pneumoniae] as the cause of diseases classified elsewhere; B96.89 Other specified bacterial agents as the cause of diseases classified elsewhere
CPT/HCPCS: 31720; 36415; 71045-TC; 80048-TC; 80053-TC; 80061-TC; 80076-TC; 80202-TC; 81000-TC; 82962-TC; 83605-TC; 83735-TC; 83880; 84100-TC; 84484-TC; 85025-TC; 85730-TC; 87040-TC; 87081-TC; 87086-TC; 87186-TC; 94002-TC; 94003-TC; 94760-TC; 94762-TC; 94799-TC; A4623; A6248; A6403; G0378; J1650; J1815; J2185; J2270; J2543; J3370; J7030; J7060